=== PATIENT | female | born 1955 | race Caucasian/White ===

== ENCOUNTER 2016-09-18 19:02 | Emergency (ER) | payer BC, OTHER ==
[2016-09-18 19:25] VITALS: BP 169/83
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
== END 2016-09-18 20:40 | disposition home or self-care (01) ==
LOC: ED 19:02
DX: Z02.83 Encounter for blood-alcohol and blood-drug test (principal); V89.2XXA Person injured in unspecified motor-vehicle accident, traffic, initial encounter; Y93.9 Activity, unspecified; Y92.9 Unspecified place or not applicable; J45.909 Unspecified asthma, uncomplicated; G43.909 Migraine, unspecified, not intractable, without status migrainosus; G89.29 Other chronic pain; Z88.7 Allergy status to serum and vaccine; Z88.3 Allergy status to other anti-infective agents; Z91.030 Bee allergy status; Z91.040 Latex allergy status; Z88.2 Allergy status to sulfonamides; Z88.8 Allergy status to other drugs, medicaments and biological substances; Z91.048 Other nonmedicinal substance allergy status; Z85.3 Personal history of malignant neoplasm of breast
CPT/HCPCS: 99281

== ENCOUNTER 2018-03-05 13:59 | Emergency (ER) | payer BC, OTHER ==
[2018-03-05 14:14] VITALS: BP 177/90
--- NOTE | 2018-03-05 14:56 | UC ---
Respiratory Complaint HPI - HPI Summary HPI Summary: Pt c/o sudden onset of nasal congestion, PND, cough, chest congestion X 1 day. Pt states that she "always gets this and she will get pneumonia in 24 hours" - History of Current Complaint Chief Complaint: UCRespiratory Stated Complaint: SINUS COMPLAINT Time Seen by Provider: 03/05/18 14:29 Hx Obtained From: Patient Hx Last Menstrual Period: Hysterectomy ?: No Onset/Duration: Sudden Onset, Lasting Days, Still Present Timing: Constant Severity Initially: Moderate Severity Currently: Moderate Pain Intensity: 7 Character: Cough: Nonproductive Aggravating Factors: Exertion, Deep Breaths, Recumbent Position Alleviating Factors: Nothing Associated Signs And Symptoms: Positive: Chills, Wheezing, URI, Nasal Congestion Related History: Seasonal Allergies - Risk Factors Pulmonary Embolism Risk Factors: Negative Cardiac Risk Factors: Negative Pseudomonas Risk Factors: Negative Tuberculosis Risk Factors: Negative - Allergies/Home Medications Allergies/Adverse Reactions: Allergies Allergy/AdvReac Type Severity Reaction Status Date / Time Adhesive Tape [Paper Tape] Allergy Unknown Unknown Verified 03/05/18 14:19 Reaction Details adhesive tape Allergy Unknown Verified 03/05/18 14:19 Reaction Details bee venom protein (honey bee) Allergy Unknown Verified 03/05/18 14:19 Reaction Details buprenorphine Allergy Rash Verified 03/05/18 14:19 cefaclor [From Ceclor] Allergy GI Upset Verified 03/05/18 14:19 cephalexin [From Keflex] Allergy GI Upset Verified 03/05/18 14:19 ciprofloxacin [From Cipro] Allergy GI Upset Verified 03/05/18 14:19 Egg Derived Allergy Rash Verified 03/05/18 14:19 latex Allergy Blisters Verified 03/05/18 14:19 nalbuphine [From Nubain] Allergy Unknown Verified 03/05/18 14:19 Reaction Details nitrofurantoin Allergy GI Upset Verified 03/05/18 14:19 [From Macrobid] ondansetron Allergy Nausea And Verified 03/05/18 14:19 Vomiting Sulfa (Sulfonamide Allergy Unknown Verified 03/05/18 14:19 Antibiotics) Reaction Details Tetanus Vaccines and Toxoid Allergy GI Upset Verified 03/05/18 14:19 Tetracyclines Allergy Unknown Verified 03/05/18 14:19 Reaction Details BANDAIDS Allergy Unknown Unknown Uncoded 03/05/18 14:19 Reaction Details BEE STINGS Allergy Unknown Unknown Uncoded 03/05/18 14:19 Reaction Details GANDOCIN Allergy Unknown Unknown Uncoded 03/05/18 14:19 Reaction Details ADHESIVES Allergy Unknown Uncoded 03/05/18 14:19 Reaction Details Home Medications: Home Medications Ibuprofen TAB* [Motrin TAB* 800 MG] 800 mg PO Q6H 03/05/18 [History Confirmed ] PMH/Surg Hx/FS Hx/Imm Hx Previously Healthy: Yes Other History Of: Negative For: HIV, Hepatitis B, Hepatitis C, Anticoagulant Therapy - Surgical History Surgical History: Yes Surgery Procedure, Year, and Place: APPENDECTOMY-EXPLORATORY; OVARY-CYST - ; 2004 BREAST-LUMPECTOMY Rt; STAPH INFECTION W/ BREAST;TONSILECTOMY ( CHILD) , PARTIAL hysterectomy - Family History Known Family History: Positive: Cardiac Disease, Hypertension Family History: NON CONTRIBUTORY - Social History Occupation: Retired Lives: With Family Alcohol Use: None Substance Use Type: None Smoking Status (MU): Never Smoked Tobacco Have You Smoked in the Last Year: No - Immunization History Most Recent Influenza Vaccination: allergy Review of Systems All Other Systems Reviewed And Are Negative: Yes Constitutional: Positive: Fatigue Skin: Positive: Negative Eyes: Positive: Negative ENT: Positive: Sore Throat, Sinus Congestion Respiratory: Positive: Shortness Of Breath, Cough, Other - wheezing Cardiovascular: Positive: Negative Gastrointestinal: Positive: Negative Genitourinary: Positive: Negative Motor: Positive: Negative Neurovascular: Positive: Negative Musculoskeletal: Positive: Negative Neurological: Positive: Negative Psychological: Positive: Negative Is Patient Immunocompromised?: No Physical Exam Triage Information Reviewed: Yes Appearance: Ill-Appearing Vital Signs: Initial Vital Signs Temp 98.8 F 03/05/18 14:09 Pulse 74 03/05/18 14:09 Resp 18 03/05/18 14:09 BP 177/90 03/05/18 14:09 Pulse Ox 98 03/05/18 14:09 Vital Signs Reviewed: Yes Eye Exam: Normal ENT: Positive: Nasal congestion Dental Exam: Normal Neck exam: Normal Respiratory: Positive: Wheezing Cardiovascular Exam: Normal Musculoskeletal Exam: Normal Neurological Exam: Normal Psychological Exam: Normal Skin Exam: Normal UC Diagnostic Evaluation - Laboratory O2 Sat by Pulse Oximetry: 98 Respiratory Course/Dx - Differential Dx/Diagnosis Differential Diagnosis/HQI/PQRI: Bronchitis, Other - uri Provider Diagnosis: Bronchitis Discharge - Sign-Out/Discharge Documenting (check all that apply): Patient Departure All imaging exams completed and their final reports reviewed: No Studies - Discharge Plan Condition: Stable Disposition: HOME Prescriptions: Albuterol HFA INHALER* [Ventolin HFA Inhaler*] 1 - 2 puff INH Q4H PRN #1 mdi PRN Reason: Sob/Wheezing Azithromycin TAB* [Zithromax TAB (Z-LASHAUN) 250 mg #6 tabs] 2 tab PO .TODAY, THEN 1 DAILY #1 lashaun Benzonatate CAP* [Tessalon 100 MG CAP*] 100 mg PO Q8H PRN #30 cap PRN Reason: Cough predniSONE [Prednisone 20 MG TAB] 20 mg PO DAILY #4 tablet Patient Education Materials: Acute Bronchitis (ED), Bronchospasm (ED) Referrals: Ermias Desai MD [Primary Care Provider] - 2 Days - Billing Disposition and Condition Condition: STABLE Disposition: Home
== END 2018-03-05 15:13 | disposition home or self-care (01) ==
LOC: UCEAST 13:59
DX: J40 Bronchitis, not specified as acute or chronic (principal); Z88.8 Allergy status to other drugs, medicaments and biological substances; Z88.1 Allergy status to other antibiotic agents
CPT/HCPCS: 99212; G0463

== ENCOUNTER 2018-04-24 18:19 | Emergency (ER) | payer BC, OTHER ==
--- NOTE | 2018-04-24 18:35 | UC ---
Complaint Female HPI - HPI Summary HPI Summary: 62 y/o female presents to the urgent care c/o burning and frequency on urination since this afternoon. About 1 hrs ago she started to feel some chills w/ Rt lower back pain and mild pelvic pain. Pt states Hx of chronic back pain. She stated to drink water recently. Pain is 7/10. Pt states Hx of Multiple antibiotic allergies. Pt has been very stresses out lately since her had a stroke yesterday. Pt denies fever, flank pain, abdominal pain, vaginal discharge, SOB, chest pain, NICK, dizziness, visual changes. - History Of Current Complaint Stated Complaint: UTI Time Seen by Provider: 04/24/18 18:33 Hx Obtained From: Patient Hx Last Menstrual Period: Hysterectomy Onset/Duration: Gradual Onset, Lasting Hours - 6hrs, Still Present Timing: Lasting Seconds Severity Initially: Mild Severity Currently: Moderate Pain Intensity: 7 Pain Scale Used: 0-10 Numeric Character: Burning Aggravating Factor(s): Urination Associated Signs And Symptoms: Positive: Back Pain - lower back pain. But has Hx of chronic back pain. Negative: Fever, Vaginal Discharge, Nausea, Vomiting( # Of Episodes =), Genital Swelling, Genital Blisters - Risk Factors Ectopic Risk Factor: Negative Ovarian Torsion Risk Factor: Negative - Allergies/Home Medications Allergies/Adverse Reactions: Allergies Allergy/AdvReac Type Severity Reaction Status Date / Time Adhesive Tape [Paper Tape] Allergy Unknown Unknown Verified 04/24/18 18:48 Reaction Details adhesive tape Allergy Unknown Verified 04/24/18 18:48 Reaction Details bee venom protein (honey bee) Allergy Unknown Verified 04/24/18 18:48 Reaction Details buprenorphine Allergy Rash Verified 04/24/18 18:48 cefaclor [From Ceclor] Allergy GI Upset Verified 04/24/18 18:48 cephalexin [From Keflex] Allergy GI Upset Verified 04/24/18 18:48 ciprofloxacin [From Cipro] Allergy GI Upset Verified 04/24/18 18:48 Egg Derived Allergy Rash Verified 04/24/18 18:48 latex Allergy Blisters Verified 04/24/18 18:48 [email or web address] [From Nubain] Allergy Unknown Verified 04/24/18 18:48 Reaction Details nitrofurantoin Allergy GI Upset Verified 04/24/18 18:48 [From Macrobid] ondansetron Allergy Nausea And Verified 04/24/18 18:48 Vomiting Sulfa (Sulfonamide Allergy Unknown Verified 04/24/18 18:48 Antibiotics) Reaction Details Tetanus Vaccines and Toxoid Allergy GI Upset Verified 04/24/18 18:48 Tetracyclines Allergy Unknown Verified 04/24/18 18:48 Reaction Details BANDAIDS Allergy Unknown Unknown Uncoded 04/24/18 18:48 Reaction Details BEE STINGS Allergy Unknown Unknown Uncoded 04/24/18 18:48 Reaction Details GANDOCIN Allergy Unknown Unknown Uncoded 04/24/18 18:48 Reaction Details ADHESIVES Allergy Unknown Uncoded 04/24/18 18:48 Reaction Details Home Medications: Home Medications Cholecalciferol (Vitamin D3) [Vitamin D3] 1 tab PO DAILY 04/24/18 [History Confirmed 04/24/18] PMH/Surg Hx/FS Hx/Imm Hx Previously Healthy: Yes Respiratory History: Asthma Other Neurological History: Chronic back pain Psychological History: Anxiety, Depression Other History Of: Negative For: HIV, Hepatitis B, Hepatitis C, Anticoagulant Therapy - Surgical History Surgical History: Yes Surgery Procedure, Year, and Place: APPENDECTOMY-EXPLORATORY; OVARY-CYST - ; 2004 BREAST-LUMPECTOMY Rt; STAPH INFECTION W/ BREAST;TONSILECTOMY ( CHILD) , PARTIAL hysterectomy - Family History Known Family History: Positive: Cardiac Disease, Hypertension Family History: NON CONTRIBUTORY - Social History Occupation: Employed Full-time Lives: With Family Alcohol Use: None Substance Use Type: None Smoking Status (MU): Never Smoked Tobacco Have You Smoked in the Last Year: No - Immunization History Most Recent Influenza Vaccination: allergy Review of Systems All Other Systems Reviewed And Are Negative: Yes Constitutional: Positive: Chills Skin: Positive: Negative Eyes: Positive: Negative ENT: Positive: Negative Respiratory: Positive: Negative Cardiovascular: Positive: Negative Gastrointestinal: Positive: Negative Genitourinary: Positive: Dysuria, Frequency, Urgency Motor: Positive: Negative Neurovascular: Positive: Negative Musculoskeletal: Positive: Negative Neurological: Positive: Negative Psychological: Positive: Negative Is Patient Immunocompromised?: No Physical Exam - Summary Physical Exam Summary: VITAL SIGNS: Reviewed. GENERAL: Patient is a well developed and nourished female who is sitting comfortable in the examining table. Patient is not in any acute respiratory distress. HEAD AND FACE: No signs of trauma. No ecchymosis, hematomas or skull depressions. No sinus tenderness. EYES: PERRLA, EOMI x 2, No injected conjunctiva, clear watery eyes, no nystagmus. No photophobia. EARS: Hearing grossly intact. Ear canals and tympanic membranes are within normal limits. MOUTH: pharynx with no erythema, no exudates,no palatal petechiae. no B/L tonsillar enlargement Uvula in midline. NECK: Supple, trachea is midline, no lymphadenopathy, no JVD, no carotid bruit, no c-spine tenderness, neck with full ROM. CHEST: Symmetric, no tenderness at palpation LUNGS: Clear to auscultation bilaterally. No wheezing or crackles. CVS: Regular rate and rhythm, S1 and S2 present, no murmurs or gallops appreciated. ABDOMEN: Soft, non-tender. No signs of distention. No rebound no guarding, and no masses palpated. Bowel sounds are normal. BACK:no scoliosis or lesions, non tender to palpation, No B/L CVA tenderness EXTREMITIES: FROM in all major joints, no edema, no cyanosis or clubbing. NEURO: Alert and oriented x 3. No acute neurological deficits. Speech is normal and follows commands. SKIN: Dry and warm Triage Information Reviewed: Yes Complaint Female Dx - Course Course Of Treatment: 62 y/o female presents to the urgent care c/o burning and frequency on urination since this afternoon. About 1 hrs ago she started to feel some chills w/ Rt lower back pain and mild pelvic pain. Pt states Hx of chronic back pain. She stated to drink water recently. Pain is 7/10. Pt states Hx of Multiple antibiotic allergies. Pt has been very stresses out lately since her had a stroke yesterday. Pt denies fever, flank pain, abdominal pain , vaginal discharge, SOB, chest pain, NICK, dizziness, visual changes. Hx obtained. PE:WNL, No B/L CVA tenderness. UA results: Blood trace, Leukoesterase 1+. Pt w/ multiple antibiotic reactions. Pt will be Rx Augmentin PO which she states she has taken in the past w/o any problems. Also Rx. Pyridium 100mg PO TID x 2 days. Advised to increase fluid intake. Urine sent for culture if any abnormality Pt will be notified for further treatment. Pt advised If symptoms do not improve to return to the urgent care or f/u with PCP. Pt's BP is elevated today 188/106. Pt is asymptomatic. Manually taken 30 min later 162/75. Pt advised to decrease salt in diet, monitor BP and f/u with PCP for further management. Pt understood and agreed. Left the clinic ambulating. - Differential Dx/Diagnosis Differential Diagnosis/HQI/PQRI: Cervicitis, Renal Colic, Ureteral Stone, Urinary Tract Infection, Other - pyelonephritis Provider Diagnosis: UTI (urinary tract infection), Dysuria, Elevated BP without diagnosis of hypertension Discharge - Sign-Out/Discharge Documenting (check all that apply): Patient Departure - D/C home All imaging exams completed and their final reports reviewed: No Studies - Discharge Plan Condition: Stable Disposition: HOME Prescriptions: Amoxicillin/Clavulanate TAB* [Augmentin TAB 875*] 875 mg PO BID #14 tab Phenazopyridine TAB* [Pyridium 100 mg TAB*] 100 mg PO TID #6 tab Patient Education Materials: Urinary Tract Infection in Women (ED), Low-Sodium Diet (ED) Referrals: Ermias Desai MD [Primary Care Provider] - 2 Days Additional Instructions: 1- Please take Augmentin PO x 7 days. Pyridium 100 mg PO TID x 2 days to alleviate urinary symptoms. Increase increase fluid intake. drink cranberry juice. 2-Urine sent for culture if any abnormality, you will be notified for further treatment. 3-If symptoms do not improve please return to the urgent care or f/u with PCP in 2 days for further management and treatment . 4-Your BP is elevated today. please decrease salt in your diet, monitor BP and if it continues to be elevated please f/u with your PCP for further management. If you develop NICK, dizziness, Chest pain, SOB please go immediately to the ER for further management - Billing Disposition and Condition Condition: STABLE Disposition: Home
[2018-04-24 19:24] VITALS: BP 162/75
== END 2018-04-24 19:38 | disposition home or self-care (01) ==
LOC: UCEAST 18:19
DX: N39.0 Urinary tract infection, site not specified (principal); R03.0 Elevated blood-pressure reading, without diagnosis of hypertension; Z88.1 Allergy status to other antibiotic agents; Z91.030 Bee allergy status; Z91.012 Allergy to eggs; Z91.040 Latex allergy status; Z88.2 Allergy status to sulfonamides; Z88.7 Allergy status to serum and vaccine; Z91.048 Other nonmedicinal substance allergy status
CPT/HCPCS: 81003; 87077; 87086; 87186; 99212; G0463

== ENCOUNTER 2018-05-17 17:53 | Emergency (ER) | payer BC, OTHER ==
[2018-05-17 18:00] VITALS: BP 153/80
[2018-05-17] MEDS ORDERED: Ketorolac INJ* 60 MG/2 ML VIAL IM ONE (18:20)
--- NOTE | 2018-05-17 18:20 | UC ---
Headache HPI - HPI Summary HPI Summary: 62-year-old woman comes in with chief complaint of generalized headache. It started earlier today. Patient has a long history of headaches and patient reports this is her typical headache. She is slightly nauseous with it to. No fevers no stiff neck. No weakness or numbness. She does have mild photophobia no focal neurologic deficit. - History Of Current Complaint Chief Complaint: UCHeadache Stated Complaint: HEADACHE Time Seen by Provider: 05/17/18 18:05 Hx Last Menstrual Period: Hysterectomy Pain Intensity: 10 - Allergies/Home Medications Allergies/Adverse Reactions: Allergies Allergy/AdvReac Type Severity Reaction Status Date / Time Adhesive Tape [Paper Tape] Allergy Unknown Unknown Verified 05/17/18 17:58 Reaction Details adhesive tape Allergy Unknown Verified 05/17/18 17:58 Reaction Details bee venom protein (honey bee) Allergy Unknown Verified 05/17/18 17:58 Reaction Details buprenorphine Allergy Rash Verified 05/17/18 17:58 cefaclor [From Ceclor] Allergy GI Upset Verified 05/17/18 17:58 cephalexin [From Keflex] Allergy GI Upset Verified 05/17/18 17:58 ciprofloxacin [From Cipro] Allergy GI Upset Verified 05/17/18 17:58 Egg Derived Allergy Rash Verified 05/17/18 17:58 latex Allergy Blisters Verified 05/17/18 17:58 nalbuphine [From Nubain] Allergy Unknown Verified 05/17/18 17:58 Reaction Details nitrofurantoin Allergy GI Upset Verified 05/17/18 17:58 [From Macrobid] ondansetron Allergy Nausea And Verified 05/17/18 17:58 Vomiting Sulfa (Sulfonamide Allergy Unknown Verified 05/17/18 17:58 Antibiotics) Reaction Details Tetanus Vaccines and Toxoid Allergy GI Upset Verified 05/17/18 17:58 Tetracyclines Allergy Unknown Verified 05/17/18 17:58 Reaction Details BANDAIDS Allergy Unknown Unknown Uncoded 05/17/18 17:58 Reaction Details BEE STINGS Allergy Unknown Unknown Uncoded 05/17/18 17:58 Reaction Details GANDOCIN Allergy Unknown Unknown Uncoded 05/17/18 17:58 Reaction Details ADHESIVES Allergy Unknown Uncoded 05/17/18 17:58 Reaction Details Home Medications: Home Medications Aspirin/Acetaminophen/Caffeine [Excedrin Migraine Caplet] 2 each PO PRN [History] Ketorolac INJ* [Toradol INJ*] 60 mg IM PRN 05/17/18 [History] PMH/Surg Hx/FS Hx/Imm Hx Previously Healthy: Yes Respiratory History: Asthma Neurological History: Migraine Other History Of: Negative For: HIV, Hepatitis B, Hepatitis C, Anticoagulant Therapy - Surgical History Surgical History: Yes Surgery Procedure, Year, and Place: APPENDECTOMY-EXPLORATORY; [facility] - ; 2004 BREAST-LUMPECTOMY Rt; STAPH INFECTION W/ BREAST;TONSILECTOMY ( CHILD) , PARTIAL hysterectomy - Family History Known Family History: Positive: Cardiac Disease, Hypertension Family History: NON CONTRIBUTORY - Social History Alcohol Use: None Substance Use Type: None Smoking Status (MU): Never Smoked Tobacco Have You Smoked in the Last Year: No - Immunization History Most Recent Influenza Vaccination: allergy Review of Systems All Other Systems Reviewed And Are Negative: Yes Constitutional: Positive: Negative Skin: Positive: Negative Eyes: Positive: Negative ENT: Positive: Negative Respiratory: Positive: Negative Cardiovascular: Positive: Negative Gastrointestinal: Positive: Nausea Motor: Positive: Negative Neurovascular: Positive: Negative Musculoskeletal: Positive: Negative Neurological: Positive: Headache Psychological: Positive: Negative Is Patient Immunocompromised?: No Physical Exam Triage Information Reviewed: Yes Appearance: Well-Appearing, Well-Nourished, Pain Distress - MILD Vital Signs: Initial Vital Signs Temp 97.2 F 05/17/18 17:55 Pulse 72 05/17/18 17:55 Resp 16 05/17/18 17:55 BP 153/80 05/17/18 17:55 Pulse Ox 100 05/17/18 17:55 Vital Signs Reviewed: Yes Eye Exam: Normal Eyes: Positive: Conjunctiva Clear, Other: - POSITIVE PHOTOPHOBIA Neck exam: Normal Neck: Positive: Supple Respiratory: Positive: Lungs clear, Normal breath sounds, No respiratory distress Cardiovascular: Positive: RRR Musculoskeletal Exam: Normal Musculoskeletal: Positive: Strength Intact, ROM Intact Neurological Exam: Normal Neurological: Positive: Alert, Muscle Tone Normal, Other: - NO FOCAL NEUROLOGIC DEFICIT Psychological Exam: Normal Psychological: Positive: Age Appropriate Behavior Skin Exam: Normal Headache Course/Dx - Course Course Of Treatment: Patient reports this is her typical headache. Recently she 's been prescribed ketorolac 60 mg IM as needed for her headaches. We gave her that in clinic. She'll follow-up with her primary care doctor reevaluate sooner if worse or any questions or concerns. - Differential Dx/Diagnosis Provider Diagnosis: Headache Discharge - Sign-Out/Discharge Documenting (check all that apply): Patient Departure All imaging exams completed and their final reports reviewed: No Studies - Discharge Plan Condition: Stable Disposition: HOME Patient Education Materials: General Headache (ED) Referrals: Ermias Desai MD [Primary Care Provider] - Additional Instructions: FOLLOW UP WITH YOUR DOCTOR. GET RECHECKED FOR ANY WORSENING OF YOUR CONDITION; PAIN, WEAKNESS, NUMBNESS, YOU FEEL ILL, FEVER OR QUESTIONS OR CONCERNS. - Billing Disposition and Condition Condition: STABLE Disposition: Home
== END 2018-05-17 18:39 | disposition home or self-care (01) ==
LOC: UCEAST 17:53
DX: R51 Headache (principal); J45.909 Unspecified asthma, uncomplicated; H53.149 Visual discomfort, unspecified; R11.0 Nausea; Z88.1 Allergy status to other antibiotic agents; Z91.030 Bee allergy status; Z91.012 Allergy to eggs; Z91.040 Latex allergy status; Z88.5 Allergy status to narcotic agent; Z88.2 Allergy status to sulfonamides; Z88.7 Allergy status to serum and vaccine; Z88.8 Allergy status to other drugs, medicaments and biological substances; Z91.09 Other allergy status, other than to drugs and biological substances
CPT/HCPCS: 96372; 99211; G0463; J1885

== ENCOUNTER 2018-07-01 10:09 | Emergency (ER) | payer BC, OTHER ==
--- OUTSIDE RECORDS SUMMARY | 2018-07-01 10:16 | XMS REPORT | Continuity of Care Document ---
:1955 External Reference #:[id number] Author Name Desiree Bowden Care Team Providers Name Role Phone Korina Meadows M.D. Primary Care Physician Unavailable Payers Date Identification Numbers Payment Provider Subscriber Effective: 2016 Policy Number: [id number] [employer] Dutch Linton PayID: [id number] [address] [address] CRISTINA Santiago [address] Policy Number: [id number] [facility] Dutch Linton PayID: [id number] [address] [place] [address] Effective: 2012 Policy Number: [id number] [employer] Dutch Linton Expires: 2016 PayID: [id number] [address] [address] CRISTINA Santiago [address] Onset: 1997 Policy Number: [id number] [employer]ST[employer] Dutch Linton PayID: [id number] [address] [place] [address] Effective: 2011 Policy Number: [id number] BS Of BRODIE Linton Expires: 2011 PayID: [id number] [address] [address] CRISTINA Santiago [address] Expires: 2009 Policy Number: [id number] BS Of BRODIE Linton PayID: [id number] [address] [address] CRISTINA Santiago [address] Controverted Dutch Linton Onset: 1997 Group Name: [employer] Dutch Linton [address] [place] [address] Advance Directives Type Date Description Status Comment Other Directive 01/09/2018 Health Care Proxy Current and Verified Problems Date Description Provider Status Onset: 09/28/2009 Thoracic back sprain Ermias Desai M.D.,FACP Active Onset: 09/28/2009 Spasm Ermias Desai M.D.,FACP Active Onset: 01/26/2011 Migraine without aura, not Ermias Desai M.D.,FACP Active refractory Onset: 10/04/2011 Personal history of primary Ermias Desai M.D.,MARK Active malignant neoplasm of breast Onset: 07/03/2012 Osteoporosis Ermias Desai M.D.,FACP Active Onset: 07/29/2015 Vitamin D deficiency Ermias Desai M.D.,FACP Active Family History Date Family Member(s) Observation Comments Father due to Hypertension () Mother Cancer, Breast Mother Osteoporosis Mother Arthritis, Osteo Mother osteopetrosis? First Sister Lupus Second Sister Lupus Social History Type Date Description Comments Sex Unknown Marital Status Lives With Spouse Occupation Medically Retired Tobacco Use Start: Unknown Never Smoked Cigarettes ETOH Use 07/03/2012 Denies alcohol use ETOH Use 08/26/2014 Denies alcohol use Recreational Drug Use Denies Drug Use Tobacco Use Start: Unknown Patient has never smoked Smoking Status Reviewed: 05/28/18 Patient has never smoked Exercise Type/Frequency Exercises rarely Currently Active Patient is currently not sexually active Allergies, Adverse Reactions, Alerts Date Description Reaction Status Severity Comments 07/15/2009 Ondansetron nausea/vomiting Active 07/15/2009 Tetanus Toxoids Active 07/15/2009 Keflex Active 07/15/2009 Cipro Active 07/15/2009 Ceclor Active 09/28/2009 Nitrofurantoin Active diarrhea/vomitin g 04/06/2010 Eggs or Egg-derived Active rash Products 10/04/2011 Latex blisters Active 12/02/2012 Sulfa Antibiotics Active 12/06/2012 Tussionex Pennkinetic Active Extended Release 12/06/2012 Tetracycline Active 12/06/2012 Gandocin Active 12/06/2012 Bee Sting Active 12/06/2012 Bandaids And Paper Tape Active 12/13/2012 Nubain unsure but Active remembers from past 12/13/2012 Buprenorphine Active rash from Butrans Patch 07/15/2009 Prednisone nausea Inactive Medications Medication Date Status Form Strength Qnty SIG Indications Ordering Provider Butalbital/Aspi 05/29 Active Capsules 50-325-40 75cap 1-2 every 8 G43.009 Korina rin/Caffeine/Co /2019 -30mg s hours as Meadows, deine needed for severe migraine. must last 28 days Propranolol HCL 05/28 Active Tablets 20mg 60tab 1 by mouth I10 s twice a day MD Abdiel Nitrofurantoin 05/01 Active Capsules 100mg 14cap 1 by mouth Ladi Macrocrystal s twice a day Rick Rodriguez Calcium 500 + 04/26 Active Tablets 500-600mg 90tab 2 tabs by Ermias D3 /2018 -Unit s mouth every Liset Desai, day M.D.,FACAziza Fish Oil 04/26 Active Capsules 1000mg 100ca 1 tab by mouth Ermias ps every day Liset Desai M.D.,MARK Ketorolac 04/23 Active Solution 60mg/2ML 4ml 2ml G43.009 Trometh intramuscular Meadows, x 1, as needed migraine Cetirizine HCL 03/26 Active Tablets 10mg 30tab 1 by mouth J30.9 s every day MD Abdiel Azelastine HCL 03/26 Active Solution 137mcg/Sp 30ml 2 sprays in J30.9 Korina (Nasal) ray each nostril Abdiel, 2x/day Vitamin D 01/09 Active Tablets 1000Unit 90tab by mouth E55.9 Zsofia s everyday JONES [place] Vitamin D3 08/13 Active Capsules 5000Unit 90cap 1 by mouth Zsofia Ultra Strength s every day JONES [place] Ambien 05/04 Active Tablets 10mg 30tab 1 tab by mouth G47.00 s at bedtime as Abdiel, needed Baclofen 12/08 Active Tablets 10mg 45tab take 1/2 tab Ermias s by mouth three Liset Desai, times daily M.D.,MARK Lidoderm 09/18 Active Patches 5% 30uni apply Ermias ts topically Liset Desai, every day for M.DMj,MARK 12 hours to RT shoulder, work-related injury Latanoprost 07/13 Active Solution 0.005% 1 drop in each Other /2015 eye at bedtime Ordering Provider Tandem Lite 04/21 Active Device 1unit check Ermias Blood Glucose /2013 s fingerstick Liset Desai, Monitoring daily M.D.,FACP System hypoglycemic Proair HFA 09/10 Active Aerosol 108(90Bas 8.5un 2 puffs by J45.909 ofia /2012 e) its mouth four Cliff, mcg/Act times a day as ASSURANCE ANALYST needed Freestyle Lite 11/23 Active Strips 100un test BS up to Ermias Test Strips its three times Liset Desai, daily, last M.D.,FACP visit: 05/04/17 Freestyle 11/23 Active Misc 100un test BS up to Ermias Lancets its three times Liset Desai, daily, last M.D.,FACP visit: 05/04/17 Carisoprodol Active Tablets 350mg 120ta 1 tablets by M62.40 Zsofi bs mouth four Cliff, times a day as ASSURANCE ANALYST needed Acetaminophen-C Active Tablets 300-60mg 2 tab every 4 Unknown odeine #4 /0000 hours as needed pain (work-related) Lumigan Active Solution 0.01% one drop in Unknown /0000 left eye daily Excedrin Active Tablets 250-250-6 1 tab twice a G43.009 Unknown Migraine /0000 5mg day as needed for migraine Timolol Maleate Active Solution 0.5% instill one Unknown /0000 drop into both eyes twice daily (Timoptic) Imitrex Active Tablets 50mg 18tab every 2 hours G43.909 s as needed mdd4 karen Meadows 4 G43.009 Ventolin HFA Active Aerosol 108(90Base) 8gm 2 puffs by Korina mcg/Act mouth four Meadows, times a day MD as needed (rx'd by urgent care) Zioptan Active Solution 0.0015% one drop in Unknown each eye once daily in evening Phenazopyridine Active Tablets 100mg 30tab one po tid Korina HCL s prn dysuria MD Abdiel Prednisone 03/11/2018 - Hx Tablets 20mg 20tab 3 tabs once a J Korina 03/26/2018 s day x 3 days, 9 Meadows, 2 tabs once a 8 MD day for 3 . days, 1 tab 0 once a day 1 for three days, half tab once a day for 3 days Ibandronate 01/09/2018 - Hx Tablets 150mg 3tabs take 1 tablet M Zsofia Sodium 01/14/2018 by mouth once 8 Cliff, a month 1 ASSURANCE ANALYST . 0 Vitamin D 05/04/2017 - Hx Tablets 1000Unit 90tab by mouth E Zsofia 08/13/2017 s everyday 5 Cliff, 5 ASSURANCE ANALYST . 9 Vitamin D 02/23/2017 - Hx Tablets 1000Unit 30tab by mouth Zsofia 08/13/2017 s everyday Cliff, ASSURANCE ANALYST Ibuprofen 10/25/2016 - Hx Tablets 800mg 60tab 1 tab by M Zsofia 12/08/2016 s mouth three 5 Cliff, times a day 4 ASSURANCE ANALYST with food as . needed 5 Meloxicam 10/05/2016 - Hx Tablets 7.5mg 60tab 1 by mouth M Zsofia 04/23/2018 s twice a day 2 Cliff, as needed 5 ASSURANCE ANALYST . 5 1 1 Vitamin D3 09/11/2016 - Hx Capsules 5000Unit 90cap 1 by mouth Zsofia Maximum Strength 04/23/2018 s every day for Cliff, 3 month, ASSURANCE ANALYST repeat labs when completed Calcium 1000 + D 09/06/2016 - Hx Tablets 4107-699jf-Yo 90tab take 1 tab po M Zsofia 04/23/2018 it s daily 8 Cliff, 1 ASSURANCE ANALYST . 0 Ra Fish Oil 09/06/2016 - Hx Capsules 1000mg 90cap take 1 Zsofia 04/23/2018 s capsule by Cliff, mouth once ASSURANCE ANALYST daily Amoxicillin 01/05/2016 - Hx Tablets 875mg 20tab take one Yusuf Dada 01/15/2016 s tablet by 4 Chinese, mouth twice a 5 ICU STAFF NURSE day x's 10 . days States 9 she has taken 0 amoxicillin 9 without difficulty Keflex not a true aller Tessalon Katie 01/05/2016 - Hx Capsules 100mg 30cap 1-2 capsule Yusuf Chet -Bri 01/15/2016 s by mouth 4 l D. three times a 5 Nenzel, day as needed . M.D.,FAC 9 P 0 9 Atrovent HFA 01/05/2016 - Hx Aerosol 17mcg/Act 12.90 1-2 J Cherelle 01/15/2016 0gm inhalation q6 4 l D. hours as 5 Nenzel, needed . M.D.,FAC 9 P 0 9 Prednisone 01/05/2016 - Hx Tablets 20mg 10tab 2 tablets by Yusuf Garland 01/10/2016 s mouth daily 4 Chinese, x's 5 days in 5 ICU STAFF NURSE the morning . 9 0 9 Ergocalciferol 07/29/2015 - Hx Capsules 39082Foeb 12cap by mouth q1wk E Chet-Bri 09/11/2016 s 5 l D. 5 Nenzel, . M.D.,FAC 9 P M81.0 Ibandronate 07/23/2015 - Hx Tablets 150mg 3tabs take 1 M81.0 Ermias Sodium 09/06/2016 tablet by Liset Desai, mouth once a M.D.,FACP month Medrol (Robbie) 03/11/2015 - Hx Tablets 4mg 1tabs take as R05 Dada 03/16/2015 prescribed Chinese, ICU STAFF NURSE Benzonatate 03/02/2015 - Hx Capsules 100mg 15caps 1-2 capsule R05 Dada 01/05/2016 three times Chinese, ICU STAFF NURSE a day take as needed. Azithromycin 11/17/2014 - Hx Tablets 250mg 6tabs 2 tabs by 461.1 Dada 11/22/2014 mouth on day Chinese, ICU STAFF NURSE 1; 1 tab by mouth every day on days 2-5 Amoxicillin 08/06/2013 - Hx Tablets 500mg 40tabs 2 tabs by 462 Roshan Viramontes 07/16/2014 mouth twice Liset Desai, a day for 10 M.D.,FACP days Prednisone 04/11/2013 - Hx Tablets 10mg 30tabs 5 tabs qd Ermias 08/06/2013 for 2 days, Liset Desai, then reduce M.D.,FACP by 1 tab every 2 days until finished Sulfamethoxazo 12/02/2012 - Hx Tablets 800-160 10tabs po bid Ermias le/Trimethopri 12/02/2012 mg Liset Desai, m DS M.D.,FACP Azithromycin 09/12/2012 - Hx Tablets 250mg 6tabs 2 qd for 1 726.19 Chet Talley 09/17/2012 day, then 1 D. Giselle, qd M.D.,FACP Tessalon 03/14/2012 - Hx Capsules 200mg 30caps tid prn po Ermias 06/04/2012 Liset Desai M.D.,[facility] Percocet 02/19/2012 - Hx Tablets 5-325mg 40tabs 1/2 to 1 po Dirk Tisha, 03/27/2012 q8h prn pain M.D. knee Mcroberts 01/10/2012 - Hx Tablets 5-325mg 15tabs take 1 tab Dirk Tisha, 03/14/2012 po tid prn M.D. pain Calcium 500+D 12/08/2011 - Hx Tablets 500-400 by mouth 733.02 Chet Wander High Potency 04/11/2013 mg-Unit twice a day Liset Desai M.D.,[facility] Evista 12/08/2011 - Hx Tablets 60mg 30tabs 1 po qd 733.02 Ermias 04/11/2013 Liset Desai M.D.,[facility] Zostavax 09/13/2011 - Hx Solution Rec [id number] 1units 1 dose s/c Roshan Viramontes 10/11/2011 t/0.65M Liset Desai L Izabel.Liset,FACP Fluticasone 07/20/2011 - Hx Suspension 50mcg/A 1bottle [address] [place] [address] Propionate 10/04/2011 ct each nostril D. Nenzel, in am M.D.,FACP Nasal Saline 07/20/2011 - Hx Solution 0.65% 1ml 2 sprays in 461.9 [facility] 07/16/2014 each nostril D. Nenzel, 5 times a M.D.,FACP day Nasonex 07/20/2011 - Hx Suspension 50mcg/A 17g 2 sprays in 461.9 [facility] 07/20/2011 ct each nostril D. Nenzel, once daily M.D.,FACP Azithromycin 07/20/2011 - Hx Tablets 250mg 6tabs 2 tabs po qd 461.9 Ermias 10/04/2011 x1 day, 1 D. Nenzel, tab po qd x M.D.,FACP 4 days Butrans 07/18/2011 - Hx Patches 5mcg/HR 4units topical q 726.19 Chet- Wander 10/04/2011 Weekly week Liset Desai M.D.,FACP Ventolin HFA 03/15/2011 - Hx Aerosol 108(90B 1units 2 puffs po Chet- Wander 09/10/2012 ase) qid prn Liset Desai, mcg/ac Rick,FACP Verapamil HCL 07/26/2010 - Hx Caps ER 24HR 120mg 30caps 1 po qd 346.90 Ermias ER 12/13/2012 Liset Desai M.D.,FACP Tylenol/Codein 06/14/2010 - Hx Tablets 300-60m 240tabs 2 tablets by nuzhat Griffin #4 06/19/2014 g mouth every ICU STAFF NURSE four hours as needed per pt. request to send early to be filled but hold until due date Fluticasone 02/15/2010 - Hx Suspension 50mcg/A 1bottle 1 spray each Ermias Propionate 07/18/2011 ct nostril in Liset Desai am pravinash Cabrera,FACP Verapamil HCL 01/14/2010 - Hx Caps ER 24HR 100mg 30caps 1 tab po 346.90 [facility] CR 07/26/2010 daily Rick Lopez Verapamil HCL 12/30/2009 - Hx Caps ER 24HR 180mg 30caps 1 po qd 346.90 Ermias ER 01/14/2010 Liset Desai M.D.,FACP Fiorinal/Codei 11/22/2009 - Hx Capsules 50-325- 75caps 1-2 four G43.009 Korina ne #3 05/29/2018 40-30mg times a day MD Abdiel as needed, maximum 3 days per week Simvastatin 09/28/2009 - Hx Tablets 10mg 1 tablet po 346.90 Ermias 09/28/2009 [facility] Liset Desai M.D.,FACP Fexofenadine 08/16/2009 - Hx Tablets 60mg 60tabs take one J45.909 Chet- Wander HCL 05/04/2017 tablet by Liset Desai, mouth twice M.DMj,FACP a day as needed Zocor 08/16/2009 - Hx Tablets 10mg 30tabs 1 tablet po 346.90 Elida , 09/28/2009 Rick Danielle dialy Verapamil HCL 07/15/2009 - Hx Caps ER 24HR 100mg 30caps 1 tab po 346.90 Elida, MICHELLE 12/30/2009 daily Rick Danielle Lidoderm Patch - Hx Patches 5% 1Box 1-2 patches Ermias 08/26/2014 qd Liset Desai M.D.,FACP on for 12h off for 12h prn Tylenol With - Hx Tablets 300-60m 40tabs 2 tablets po Roshan Viramontes Codeine #4 06/14/2010 g every four Liset Desai, hours as Rick,FACP needed mdd=8 August give emergency supply Butalbital-Apa - Hx Capsules 50-325- 120caps 2 tablets po Elida, p-Caffeine 08/16/2009 40mg qid prn Rick Danielle Fexofenadine - Hx Tablets 60mg 60tabs take one Unknown HCL 08/16/2009 tablet by mouth twice a day as needed Proair HFA - Hx prn only in Unknown 03/15/2011 the winter Francia-D 12 - Hx Tablets ER 60-120m 60tabs 1 po bid as J45.909 [facility] Hour 10/24/2016 12HR g needed Liset Desai M.D.,FACP Butalbital-Apa - Hx Capsules 50-325- 240caps 2 tablets po Ermias p-Caffeine 11/22/2009 40mg qid prn Liset Desai M.D.,FACP Zolpidem - Hx Tablets 10mg 30tabs 1 tab by G47.00 Zsofia Tartrate 04/23/2018 mouth every Cliff, ASSURANCE ANALYST night at bedtime as needed Proair HFA - Hx Aerosol 108(90B 1units 2 puffs po Unknown 08/26/2014 ase) q4h prn mcg/Act Doxycycline - Hx Capsules 100mg 20caps bid po Unknown Hyclate 08/06/2013 Prednisone - Hx Tablets 20mg 20tabs take 3 po Unknown 04/11/2013 qam x 4 days Benzonatate - Hx Capsules 200mg 30caps one by mouth Unknown 07/16/2014 three times daily as needed for cough Doxycycline - Hx Capsules 100mg one tablet Unknown Hyclate 03/11/2015 twice daily for 10 days. Benzonatate - Hx Capsules 100mg take one or Unknown 03/02/2015 two capsules every 8 hours as needed for cough. Prednisone - Hx Tablets 20mg one tab Unknown 03/26/2018 daily for 4 days (rx'd by urgent care) Azithromycin - Hx Tablets 250mg two tabs day Unknown 03/26/2018 one, one daily till gone (rx' by urgent care) Benzonatate - Hx Capsules 100mg take one or Unknown 04/23/2018 two capsules every 8 hours as needed for cough. (rx'd by urgent care) Amoxicillin/Cl - Hx Tablets 875-125 Unknown avulanate 05/01/2018 mg Potassium Medications Administered in Office Medication Date Status Form Strength Qnty SIG Indications Ordering Provider Shingrix Administered Injection Unknown pharmacy 019 administered Immunizations CPT Code Status Date Vaccine Lot # [id number] Given 01/14/2018 Zoster (Shingles) Vaccine (HZV), Recombinant, Subunit, Adjuvanted 61333 Given 11/02/2011 Zoster (Zostavax) 19286 Refused 01/26/2011 Flu Mist Vaccine, Live For Intranasal Use Vital Signs Date Vital Result Comment 05/28/2018 4:48pm Height 62.5 inches 5'2.50" Weight 135.38 lb Heart Rate 68 /min BP Systolic 185 mmHg BP Diastolic 100 mmHg Body Temperature 98.1 F O2 % BldC Oximetry 99 % BMI (Body Mass Index) 24.4 kg/m2 04/23/2018 3:57pm Height 62.5 inches 5'2.50" Weight 137.00 lb Heart Rate 63 /min BP Systolic 171 mmHg BP Diastolic 85 mmHg Body Temperature 99.6 F O2 % BldC Oximetry 98 % BMI (Body Mass Index) 24.7 kg/m2 03/26/2018 2:42pm Height 62.5 inches 5'2.50" Weight 145.00 lb Heart Rate 78 /min BP Systolic Sitting 140 mmHg BP Diastolic Sitting 80 mmHg Body Temperature 98.4 F O2 % BldC Oximetry 98 % BMI (Body Mass Index) 26.1 kg/m2 03/11/2018 11:15am Height 62.5 inches 5'2.50" Weight 142.00 lb Heart Rate 66 /min BP Systolic Sitting 132 mmHg BP Diastolic Sitting 90 mmHg Body Temperature 98.7 F O2 % BldC Oximetry 93 % BMI (Body Mass Index) 25.6 kg/m2 01/09/2018 2:46pm Height 62.5 inches 5'2.50" Weight 139.00 lb Heart Rate 68 /min BP Systolic Sitting 142 mmHg BP Diastolic Sitting 88 mmHg O2 % BldC Oximetry 98 % BMI (Body Mass Index) 25.0 kg/m2 05/04/2017 3:31pm Weight 135.00 lb Heart Rate 64 /min BP Systolic Sitting 134 mmHg BP Diastolic Sitting 78 mmHg Respiratory Rate 15 /min O2 % BldC Oximetry 98 % 12/08/2016 3:26pm Weight 136.38 lb Heart Rate 64 /min BP Systolic Sitting 160 mmHg BP Diastolic Sitting 94 mmHg Body Temperature 98.8 F O2 % BldC Oximetry 98 % 11/13/2016 8:07am Weight 136.25 lb Heart Rate 73 /min BP Systolic Sitting 140 mmHg BP Diastolic Sitting 84 mmHg Body Temperature 98.2 F O2 % BldC Oximetry 98 % 10/25/2016 1:06pm Weight 142.00 lb with shoes Heart Rate 64 /min BP Systolic 134 mmHg BP Diastolic 102 mmHg O2 % BldC Oximetry 98 % 10/05/2016 11:37am Weight 139.25 lb Heart Rate 87 /min BP Systolic Sitting 160 mmHg BP Diastolic Sitting 100 mmHg Body Temperature 98.5 F O2 % BldC Oximetry 98 % 09/06/2016 10:18am Height 62.5 inches 5'2.50" Weight 145.00 lb Heart Rate 81 /min BP Systolic 138 mmHg BP Diastolic 76 mmHg Body Temperature 98.4 F O2 % BldC Oximetry 97 % BMI (Body Mass Index) 26.1 kg/m2 01/05/2016 3:40pm Weight 143.12 lb Heart Rate 86 /min BP Systolic Sitting 110 mmHg BP Diastolic Sitting 62 mmHg Body Temperature 98.5 F O2 % BldC Oximetry 99 % 07/23/2015 3:44pm Height 62.5 inches 5'2.50" Weight 150.00 lb Heart Rate 90 /min BP Systolic Sitting 130 mmHg BP Diastolic Sitting 88 mmHg Body Temperature 98.4 F O2 % BldC Oximetry 97 % BMI (Body Mass Index) 27.0 kg/m2 03/11/2015 9:16am Height 62.5 inches 5'2.50" Weight 148.00 lb Heart Rate 90 /min BP Systolic Sitting 148 mmHg BP Diastolic Sitting 84 mmHg Body Temperature 98.4 F O2 % BldC Oximetry 97 % BMI (Body Mass Index) 26.6 kg/m2 03/02/2015 12:57pm Height 62.5 inches 5'2.50" Weight 145.00 lb Heart Rate 88 /min BP Systolic Sitting 138 mmHg BP Diastolic Sitting 88 mmHg Body Temperature 99.1 F O2 % BldC Oximetry 97 % BMI (Body Mass Index) 26.1 kg/m2 02/01/2015 4:51pm Height 62.5 inches 5'2.50" Weight 143.00 lb Heart Rate 114 /min BP Systolic Sitting 144 mmHg BP Diastolic Sitting 100 mmHg Body Temperature 97.5 F O2 % BldC Oximetry 97 % BMI (Body Mass Index) 25.7 kg/m2 11/17/2014 3:41pm Height 62.5 inches 5'2.50" Weight 143.00 lb Heart Rate 73 /min BP Systolic Sitting 140 mmHg BP Diastolic Sitting 80 mmHg Body Temperature 98.8 F O2 % BldC Oximetry 98 % BMI (Body Mass Index) 25.7 kg/m2 08/26/2014 2:19pm Weight 145.00 lb Heart Rate 84 /min BP Systolic Sitting 140 mmHg BP Diastolic Sitting 84 mmHg Body Temperature 98.6 F O2 % BldC Oximetry 99 % 07/16/2014 1:41pm Weight 150.50 lb Heart Rate 80 /min BP Systolic Sitting 144 mmHg BP Diastolic Sitting 92 mmHg Body Temperature 98.3 F O2 % BldC Oximetry 98 % 08/06/2013 2:34pm Height 62.5 inches 5'2.50" Weight 146.50 lb Heart Rate 84 /min BP Systolic Sitting 134 mmHg BP Diastolic Sitting 92 mmHg Body Temperature 99.0 F BMI (Body Mass Index) 26.4 kg/m2 04/11/2013 3:53pm Weight 147.00 lb Heart Rate 90 /min BP Systolic Sitting 122 mmHg BP Diastolic Sitting 68 mmHg Body Temperature 99.2 F O2 % BldC Oximetry 98 % 12/13/2012 9:31am Height 62 inches 5'2" Weight 145.50 lb Heart Rate 80 /min BP Systolic Sitting 150 mmHg BP Diastolic Sitting 86 mmHg BMI (Body Mass Index) 26.6 kg/m2 09/12/2012 12:17pm Height 62.5 inches 5'2.50" Weight 141.00 lb Heart Rate 78 /min BP Systolic Sitting 120 mmHg BP Diastolic Sitting 78 mmHg Body Temperature 98.0 F BMI (Body Mass Index) 25.4 kg/m2 07/03/2012 2:17pm Height 62.5 inches 5'2.50" Weight 140.00 lb Heart Rate 74 /min BP Systolic Sitting 124 mmHg BP Diastolic Sitting 76 mmHg BMI (Body Mass Index) 25.2 kg/m2 06/04/2012 10:24am Height 62.5 inches 5'2.50" Weight 148.00 lb Heart Rate 78 /min BP Systolic Sitting 118 mmHg BP Diastolic Sitting 70 mmHg BMI (Body Mass Index) 26.6 kg/m2 03/27/2012 4:43pm Height 62.5 inches 5'2.50" Weight 135.00 lb Heart Rate 74 /min BP Systolic Sitting 130 mmHg BP Diastolic Sitting 74 mmHg BMI (Body Mass Index) 24.3 kg/m2 01/24/2012 4:19pm Height 62.5 inches 5'2.50" Weight 138.00 lb Heart Rate 76 /min BP Systolic Sitting 108 mmHg BP Diastolic Sitting 72 mmHg BMI (Body Mass Index) 24.8 kg/m2 12/08/2011 3:33pm Height 62.5 inches 5'2.50" Weight 136.00 lb Heart Rate 70 /min BP Systolic Sitting 108 mmHg BP Diastolic Sitting 64 mmHg BMI (Body Mass Index) 24.5 kg/m2 10/12/2011 10:02am Height 62.5 inches 5'2.50" Weight 137.00 lb Heart Rate 60 /min BP Systolic Sitting 132 mmHg BP Diastolic Sitting 90 mmHg BMI (Body Mass Index) 24.7 kg/m2 10/04/2011 1:47pm Height 62.5 inches 5'2.50" Weight 134.00 lb Heart Rate 84 /min BP Systolic Sitting 136 mmHg BP Diastolic Sitting 84 mmHg BMI (Body Mass Index) 24.1 kg/m2 07/20/2011 12:28pm Height 61 inches 5'1" Weight 136.00 lb Heart Rate 78 /min BP Systolic Sitting 110 mmHg BP Diastolic Sitting 70 mmHg Body Temperature 97.0 F BMI (Body Mass Index) 25.7 kg/m2 07/18/2011 10:49am Height 61 inches 5'1" Weight 136.00 lb Heart Rate 76 /min BP Systolic Sitting 122 mmHg BP Diastolic Sitting 64 mmHg BMI (Body Mass Index) 25.7 kg/m2 05/19/2011 4:23pm Height 61 inches 5'1" Weight 144.00 lb BP Systolic Sitting 152 mmHg L BP Diastolic Sitting 88 mmHg L BMI (Body Mass Index) 27.2 kg/m2 03/15/2011 4:54pm Height 61 inches 5'1" Weight 135.00 lb Heart Rate 76 /min BP Systolic Sitting 138 mmHg BP Diastolic Sitting 82 mmHg BMI (Body Mass Index) 25.5 kg/m2 01/26/2011 4:04pm Height 61 inches 5'1" Weight 138.00 lb Heart Rate 65 /min BP Systolic Sitting 135 mmHg BP Diastolic Sitting 80 mmHg BMI (Body Mass Index) 26.1 kg/m2 10/26/2010 11:46am Weight 136.00 lb Heart Rate 68 /min BP Systolic Sitting 132 mmHg BP Diastolic Sitting 92 mmHg Respiratory Rate 18 /min 07/26/2010 11:22am Weight 143.00 lb Heart Rate 84 /min BP Systolic Sitting 144 mmHg BP Diastolic Sitting 88 mmHg 05/24/2010 4:12pm Weight 144.00 lb Heart Rate 90 /min BP Systolic Sitting 150 mmHg BP Diastolic Sitting 80 mmHg 04/06/2010 1:04pm Weight 135.00 lb Heart Rate 80 /min BP Systolic 130 mmHg BP Diastolic 80 mmHg 12/30/2009 4:04pm Height 61 inches 5'1" Weight 131.00 lb Heart Rate 80 /min BP Systolic Sitting 142 mmHg BP Diastolic Sitting 85 mmHg BMI (Body Mass Index) 24.7 kg/m2 09/28/2009 3:27pm Height 61 inches 5'1" Weight 129.75 lb Heart Rate 88 /min BP Systolic Sitting 132 mmHg BP Diastolic Sitting 82 mmHg BMI (Body Mass Index) 24.5 kg/m2 08/18/2009 2:56pm Weight 122.00 lb Heart Rate 82 /min BP Systolic Sitting 160 mmHg BP Diastolic Sitting 80 mmHg 08/16/2009 4:26pm BP Systolic Sitting 136 mmHg BP Diastolic Sitting 80 mmHg 07/15/2009 11:10am BP Systolic Sitting 130 mmHg BP Diastolic Sitting 88 mmHg 07/15/2009 9:45am Height 61 inches 5'1" Weight 125.75 lb BMI (Body Mass Index) 23.8 kg/m2 Results Test Date Facility Test Result H/L Range Note Urine Culture And 04/24/2018 [facility] Urine SEE RESULT 1 , [address] [place] [address] [phone] Poc Urinalysis 04/24/2018 [facility] Poc Glucose, Negative Negative [address] [place] [address] [phone] Poc Bilirubin, Urine Negative Negative Poc Ketone, Urine Negative Negative Poc Specific [place], Urine 1.010 N 1.010-1.030 Poc Blood, Urine Trace-intact Abnormal Negative Poc pH, Urine 6.0 N 5-9 Poc Protein, Urine Negative Negative Poc Urobilinogen, Urine 0.2 Negative Poc Nitrite, Urine Negative Negative Poc Leukocytes, Urine 1+ Abnormal Negative Poc Color, Urine Yellow Poc Clarity, Urine Clear 3 Order 03/11/2018 [facility] Nebulizer <pending> [address] [place] [address] [phone] Laboratory test 01/09/2018 [facility] Cytology SEE RESULT [address] [place] [address] [phone] Lipid Profile 07/26/2017 [facility] Triglycerides 154 mg/dL 6 (Trig/Chol/HDL) [address] [place] [address] [phone] Cholesterol 197 mg/dL 7 HDL Cholesterol 47.1 mg/dL 8 LDL Cholesterol 119 mg/dL 9 Comp Metabolic Panel 07/26/2017 [facility] Sodium 139 mmol/L N 139-[address] [place] [address] [phone] Potassium 4.3 mmol/L N 3.5-5.0 Chloride 103 mmol/L N 101-111 Co2 Carbon Dioxide 29 mmol/L N 22-32 Anion Gap 7 mmol/L N 2-11 Glucose 107 mg/dL High 70-100 Blood Urea Nitrogen 18 mg/dL N 6-24 Creatinine 0.69 mg/dL N 0.51-0.95 BUN/Creatinine Ratio 26.1 High 8-20 Calcium 9.5 mg/dL N 8.6-10.3 Total Protein 6.3 g/dL Low 6.4-8.9 Albumin 3.8 g/dL N 3.2-5.2 Globulin 2.5 g/dL N 2-4 Albumin/Globulin Ratio 1.5 N 1-3 Total Bilirubin 0.20 mg/dL N 0.2-1.0 Alkaline Phosphatase 77 U/L N 34-104 Alt 9 U/L N 7-52 Ast 11 U/L Low 13-39 Egfr Non- 85.9 >60 Egfr 110.5 >60 10 Laboratory test 07/26/2017 [facility] TSH (Thyroid 1.32 mcIU/mL N 0.34-5.60 [address] Stim [place]orm) [place] [address] [phone] Vitamin D Total 25(Oh) 17.1 ng/mL Low 20-50 12 Hemoglobin A1c (Glyco HGB) 5.5 % N 4.0-5.6 13 Laboratory test 02/22/2017 [facility] Vitamin D 23.8 ng/mL N 20-[address] Total 25(Oh) [place] [address] [phone] Laboratory test 09/06/2016 [facility] Vitamin D 21.9 ng/mL Low 30-[address] Total 25(Oh) [place] [address] [phone] CBC Auto Diff 09/06/2016 [facility] White Blood 7.3 N 3.5- 10.[address] Count 10^3/[place] [address] [phone] Red Blood Count 4.34 10^6/uL N 4.0-5.4 Hemoglobin 13.0 g/dL N 12.0-16.0 Hematocrit 39 % N 35-47 Mean Corpuscular Volume 90 fL N 80-97 Mean Corpuscular Hemoglobin 30 pg N 27-31 Mean Corpuscular HGB Conc 33 g/dL N 31-36 Red Cell Distribution Width 13 % N 10.5-15 Platelet Count 222 10^3/uL N 150-450 Mean Platelet Volume 8 um3 N 7.4-10.4 Abs Neutrophils 4.3 10^3/uL N 1.5-7.7 Abs Lymphocytes 2.2 10^3/uL N 1.0-4.8 Abs Monocytes 0.5 10^3/uL N 0-0.8 Abs Eosinophils 0.3 10^3/uL N 0-0.6 Abs Basophils 0 10^3/uL N 0-0.2 Abs Nucleated RBC 0 10^3/uL N Granulocyte % 59.1 % N 38-83 Lymphocyte % 30.6 % N 25-47 Monocyte % 6.2 % N 1-9 Eosinophil % 3.5 % N 0-6 Basophil % 0.6 % N 0-2 Nucleated Red Blood Cells % 0.1 N Basic Metabolic Panel 07/17/2016 [facility] Sodium 135 mmol/L N 133-[address] [place] [address] [phone] Potassium 4.3 mmol/L N 3.5-5.0 Chloride 102 mmol/L N 101-111 Co2 Carbon Dioxide 27 mmol/L N 22-32 Anion Gap 6 mmol/L N 2-11 Glucose 129 mg/dL High 70-100 Blood Urea Nitrogen 10 mg/dL N 6-24 Creatinine 0.67 mg/dL N 0.51-0.95 BUN/Creatinine Ratio 14.9 N 8-20 Calcium 9.6 mg/dL N 8.6-10.3 Egfr Non- 89.2 N >60 Egfr 114.7 N >60 14 Lipid Profile 07/17/2016 [facility] Triglycerides 104 mg/dL N 15 (Trig/Chol/HDL) [address] [place] [address] [phone] Cholesterol 257 mg/dL N 16 HDL Cholesterol 53.3 mg/dL N 17 LDL Cholesterol 183 mg/dL N 18 Laboratory test 07/11/2016 [facility] Hemoglobin A1c 5.4 % N Less than [address] (Glyco HGB) 6.0 [place] [address] [phone] Laboratory test 07/11/2016 [facility] Vitamin D Total 11.9 Low 30-[address] 25(Oh) ng/[place] [address] [phone] Laboratory test 07/23/2015 [facility] Vitamin D Total < 7.0 Low 30-[address] 25(Oh) ng/[place] [address] [phone] Laboratory test 02/09/2015 [facility] Cholesterol 236 N [address] mg/[place] [address] [phone] LDL Cholesterol Direct 155 mg/dL N 21 Hemoglobin A1c (Glyco HGB) 5.6 % N Less than 6.0 22 Comp Metabolic Panel 08/25/2014 [facility] Sodium 136 mmol/L N 133-[address] [place] [address] [phone] Potassium 4.0 mmol/L N 3.5-5.0 Chloride 103 mmol/L N 101-111 Co2 Carbon Dioxide 27 mmol/L N 22-32 Anion Gap 6 mmol/L N 2-11 Glucose 98 mg/dL N 70-100 Blood Urea Nitrogen 11 mg/dL N 6-24 Creatinine 0.59 mg/dL N 0.51-0.95 BUN/Creatinine Ratio 18.6 N 8-20 Calcium 9.4 mg/dL N 8.6-10.3 Total Protein 7.0 g/dL N 6.4-8.9 Albumin 4.4 g/dL N 3.2-5.2 Globulin 2.6 g/dL N 2-4 Albumin/Globulin Ratio 1.7 N 1-3 Total Bilirubin 0.40 mg/dL N 0.2-1.0 Alkaline Phosphatase 154 U/L High 34-104 Alt 12 U/L N 7-52 Ast 12 U/L Low 13-39 Egfr Non- 103.6 N >60 Egfr 133.3 N >60 23 CBC Auto Diff 08/25/2014 [facility] White Blood 7.3 10^3/uL N 4.8-10.[address] [place] [address] [phone] Red Blood Count 4.41 10^6/uL N 4.0-5.4 Hemoglobin 13.5 g/dL N 12.0-16.0 Hematocrit 41 % N 35-47 Mean Corpuscular Volume 93 fL N 80-97 Mean Corpuscular Hemoglobin 31 pg N 27-31 Mean Corpuscular HGB Conc 33 g/dL N 31-36 Red Cell Distribution Width 13 % N 10.5-15 Platelet Count 295 10^3/uL N 150-450 Mean Platelet Volume 7 um3 Low 7.4-10.4 Abs Neutrophils 4.9 10^3/uL N 1.5-7.7 Abs Lymphocytes 1.7 10^3/uL N 1.0-4.8 Abs Monocytes 0.4 10^3/uL N 0-0.8 Abs Eosinophils 0.2 10^3/uL N 0-0.6 Abs Basophils 0.1 10^3/uL N 0-0.2 Abs Nucleated RBC 0 10^3/uL N Granulocyte % 67.5 % N 38-83 Lymphocyte % 23.9 % Low 25-47 Monocyte % 4.8 % N 1-9 Eosinophil % 3.1 % N 0-6 Basophil % 0.7 % N 0-2 Nucleated Red Blood Cells % 0 N Laboratory test 08/06/2013 [facility] Throat Culture (SEE NOTE) [address] [place] [address] [phone] CBC Auto Diff 07/25/2013 [facility] White Blood 10.5 N 4.8-[address] Count 10^3/uL .8 [place] [address] [phone] Red Blood Count 4.30 10^6/uL N 4.0-5.4 Hemoglobin 13.1 g/dL N 12.0-16.0 Hematocrit 39 % N 35-47 Mean Corpuscular Volume 90 fL N 80-97 Mean Corpuscular Hemoglobin 31 pg N 27-31 Mean Corpuscular HGB Conc 34 g/dL N 31-36 Red Cell Distribution Width 13 % N 10.5-15 Platelet Count 242 10^3/uL N 150-450 Mean Platelet Volume 8 um3 N 7.4-10.4 Abs Neutrophils 9.5 10^3/uL High 1.5-7.7 Abs Lymphocytes 0.8 10^3/uL Low 1.0-4.8 Abs Monocytes 0.2 10^3/uL N 0-0.8 Abs Eosinophils 0 10^3/uL N 0-0.6 Abs Basophils 0 10^3/uL N 0-0.2 Abs Nucleated RBC 0 10^3/uL N Granulocyte % 90.5 % High 38-83 Lymphocyte % 7.6 % Low 25-47 Monocyte % 1.8 % N 1-9 Eosinophil % 0 % N 0-6 Basophil % 0.1 % N 0-2 Nucleated Red Blood Cells % 0 N Comp Metabolic Panel 07/25/2013 [facility] Sodium 135 mmol/L N 133-[address] [place] [address] [phone] Potassium 3.8 mmol/L N 3.7-5.6 Chloride 102 mmol/L N 101-111 Co2 Carbon Dioxide 23 mmol/L N 22-32 Anion Gap 10 mmol/L N 2-11 Glucose 163 mg/dL High 70-100 Blood Urea Nitrogen 15 mg/dL N 6-24 Creatinine 0.63 mg/dL N 0.51-0.95 BUN/Creatinine Ratio 23.8 High 8-20 Calcium 9.4 mg/dL N 8.6-10.3 Total Protein 7.2 g/dL N 6.4-8.9 Albumin 4.5 g/dL N 3.2-5.2 Globulin 2.7 g/dL N 2-4 Albumin/Globulin Ratio 1.7 N 1-3 Total Bilirubin 0.30 mg/dL N 0.2-1.0 Alkaline Phosphatase 113 U/L High 34-104 Alt 27 U/L N 7-52 Ast 15 U/L N 13-39 Egfr Non- 96.7 N >60 Egfr 124.4 N >60 26 Rapid Influenza 04/08/2013 [facility] Rapid Influenza (SEE NOTE ) 27 A B Antigen [address] [place] [address] [phone] Comp Metabolic 04/08/2013 [facility] Sodium 132 mmol/L Low 133 -[address] [place] [address] [phone] Potassium 3.8 mmol/L 3.5-5.0 Chloride 102 mmol/L 101-111 Co2 Carbon Dioxide 21.0 mmol/L Low 22-32 Anion Gap 9.0 mmol/L 2-11 Glucose 126 mg/dL High 70-100 Blood Urea Nitrogen 6 mg/dL 6-24 Creatinine 0.70 mg/dL 0.50-1.40 BUN/Creatinine Ratio 8.6 8-20 Calcium 9.6 mg/dL 8.1-9.9 Total Protein 8.2 g/dL High 6.2-8.1 Albumin 4.2 g/dL 3.6-5.4 Globulin 4.0 g/dL 2-4 Albumin/Globulin Ratio 1.1 1-3 Total Bilirubin 0.7 mg/dL 0.4-1.5 Alkaline Phosphatase 118 U/L High 30-110 Alt 33 U/L 14-54 Ast 43 U/L High 12-42 Egfr Non- 85.6 >60 Egfr 110.1 >60 28 CBC Auto Diff 04/08/2013 [facility] White Blood 5.7 10^3/uL 4.8-10.[address] [place] [address] [phone] Red Blood Count 4.47 10^6/uL 4.0-5.4 Hemoglobin 13.8 g/dL 12.0-16.0 Hematocrit 41 % 35-47 Mean Corpuscular Volume 91 fL 80-97 Mean Corpuscular Hemoglobin 31 pg 27-31 Mean Corpuscular HGB Conc 34 g/dL 31-36 Red Cell Distribution Width 13 % 10.5-15 Platelet Count 184 10^3/uL 150-450 Mean Platelet Volume 7 um3 Low 7.4-10.4 Abs Neutrophils 4.9 10^3/uL 1.5-7.7 Abs Lymphocytes 0.4 10^3/uL Low 1.0-4.8 Abs Monocytes 0.3 10^3/uL 0-0.8 Abs Eosinophils 0 10^3/uL 0-0.6 Abs Basophils 0 10^3/uL 0-0.2 Abs Nucleated RBC 0 10^3/uL Granulocyte % 87.1 % High 38-83 Lymphocyte % 6.7 % Low 25-47 Monocyte % 5.4 % 1-9 Eosinophil % 0.4 % 0-6 Basophil % 0.4 % 0-2 Nucleated Red Blood Cells % 0.1 Urine Culture And 11/30/2012 [facility] Urine Culture (SEE NOTE ) [address] [place] [address] [phone] Vitamin D, 25 12/13/2011 [facility] 25-Hydroxy <4.0 ng/mL () Hydroxy [address] Vitamin [place]2 [place] [address] [phone] 25-Hydroxy Vitamin D3 25 ng/mL () 25-Hydroxy Vitamin D Total 25 ng/mL () 30 PTH Intact, Inc 12/13/2011 [facility] PTH Intact 4.7 PMOL/L 1.3-9.3 Total Calcium [address] [place] [address] [phone] Calcium For Pthi 9.5 mg/dL 8.1-9.9 31 Lipid Profile 10/02/2011 [facility] Triglyceride 196 mg/dL 40 -200 (Trig/Chol/HDL) [address] [place], [place] [address] [phone] Cholesterol 160 mg/dL Less Than 200 32 High Density Lipoprotein 43 mg/dL 40-60 33 Cholesterol/HDL Ratio 3.72 AVERAGE 1-4.44 Low Density Lipoprotein 78 mg/dL Less Than 100 34 Basic Metabolic Panel 10/02/2011 [facility] Sodium 135 mmol/L 135-145 [address] [place] [address] [phone] Potassium 4.2 mmol/L 3.5-5.0 Chloride 101 mmol/L 101-111 Co2 (Carbon Dioxide) 28.0 mmol/L 22-32 Anion Gap 6.0 mmol/L 2-11 35 Glucose 120 mg/dL High 70-100 BUN 14 mg/dL 6-24 Creatinine 0.7 mg/dL 0.50-1.40 One Over Creatinine 1.42 BUN/Creatinine Ratio 20.0 8-20 Calcium 9.4 mg/dL 8.1-9.9 eGFR Non- 85.9 > 60 eGFR 110.5 > 60 36 Laboratory 10/02/2011 [facility] Hepatitis C Nonreactive Nonreactive test finding 101 [facility] [place] [address] [phone] Urine Culture 02/23/2010 [facility] Urine Culture NG 37 & Sensitivi 101 [facility] [place] [address] [phone] Surgical 10/05/2009 [facility] Surgical 38 Pathology 101 [facility] Pathology --- <[place] [address] NOTE> [phone] Lipid Profile 09/27/2009 [facility] Triglyceride 159 mg/dL 40 -200 (Trig/Chol/HD [address] [facility] L) [place] [address] [phone] Cholesterol 220 mg/dL High Less Than 200 39 High Density Lipoprotein 45 mg/dL 40-60 40 Cholesterol/HDL Ratio 4.89 AVERAGE High 1-4.44 Low Density Lipoprotein 143 mg/dL High Less Than 100 41 Laboratory test 09/27/2009 [facility] CPK (Creatine 51 U/L 0- [address] Kinase) [place] [address] [phone] Comp Metabolic 09/27/2009 [facility] Sodium 136 135-[address] mmol/[place] [address] [phone] Potassium 3.8 mmol/L 3.5-5.0 Chloride 101 mmol/L 101-111 Co2 (Carbon Dioxide) 26.0 mmol/L 22-32 Anion Gap 9.0 mmol/L 2-11 42 Glucose 108 mg/dL High 70-100 43 BUN 12 mg/dL 6-24 Creatinine 0.70 mg/dL 0.50-1.40 One Over Creatinine 1.40 BUN/Creatinine Ratio 17.1 8-20 Calcium 9.7 mg/dL 8.1-9.9 44 Total Protein 7.0 GM/DL 6.2-8.1 Albumin 4.3 GM/DL 3.6-5.4 Globulin 2.7 GM/DL 2-4 Albumin/Globulin Ratio 1.6 1-3 Bilirubin Total 0.6 mg/dL 0.4-1.5 45 Alkaline Phosphatase 120 U/L High 30-110 Alt (SGPT) 15 U/L 14-54 Ast (Sgot) 16 U/L 12-42 eGFR Non- 92.0 > 60 eGFR 111.3 > 60 46 Urinalysis W/Microscopic 09/22/2009 [facility] Ua Color YELLOW Yellow [address] [place] [address] [phone] Appearance-Urine CLEAR Clear Specific [place]-Ur 1.014 1.010-1.030 Esterase-Urine NEGATIVE Negative Nitrite NEGATIVE Negative [id number]-NVI NEGATIVE Negative Protein-Urine NEGATIVE Negative PH-Urine 5.5 5-9 Blood-Urine NEGATIVE Negative Ketones-Urine NEGATIVE Negative Bilirubin-Ur NEGATIVE Negative Glucose-Urine NEGATIVE Negative WBC-Urine 0-2 0-5 RBC-Urine 0-2 0-2 Ursc-1 09/12/2009 [facility] Ampicillin [address] [place] [address] [phone] Amikacin <=2 S Ciprofloxacin <=0.25 S Ceftriaxone <=1 S Cefazolin <=4 S Nitrofurantoin <=16 S Gentamicin <=1 S Imipenem <=1 S Levofloxacin <=0.12 S Trimeth-Sulfa <=20 S Ceftazidime <=1 S Tigecycline <=0.5 S Piperacillin/Tazobactam <=4 S Urine Culture & 09/12/2009 [facility] Urine Culture ESCHERICHIA 48 Sensit[address] [facility] [place] [address] [phone] Urinalysis 09/12/2009 [facility] Ua Color YELLOW Yellow W/Microscopic [address] [place] [address] [phone] Appearance-Urine CLEAR Clear Specific [place]-Ur 1.017 1.010-1.030 Esterase-Urine 2+ Abnormal Negative Nitrite NEGATIVE Negative [id number]-Nc-RQD NEGATIVE Negative Protein-Urine NEGATIVE Negative PH-Urine 5.5 5-9 Blood-Urine 1+ Abnormal Negative Ketones-Urine NEGATIVE Negative Bilirubin-Ur NEGATIVE Negative Glucose-Urine NEGATIVE Negative WBC-Urine TNTC Abnormal 0-5 RBC-Urine 0-2 0-2 Mucus Urine SMALL None Epith Cells-Ur FEW None Bacteria-Urine 1+ None Lipid Profile 07/16/2009 [facility] Triglyceride 107 mg/dL 40 -200 (Trig/Chol/HDL) [address] [place] [address] [phone] Cholesterol 272 mg/dL High Less Than 200 49 High Density Lipoprotein 48 mg/dL 40-60 50 Cholesterol/HDL Ratio 5.67 AVERAGE High 1-4.44 Low Density Lipoprotein 203 mg/dL High Less Than 100 51 Comp Metabolic Panel 07/16/2009 [facility] Sodium 138 mmol/L 135-145 [address] [place] [address] [phone] Potassium 4.1 mmol/L 3.5-5.0 Chloride 105 mmol/L 101-111 Co2 (Carbon Dioxide) 26.0 mmol/L 22-32 Anion Gap 7.0 mmol/L 2-11 52 Glucose 109 mg/dL High 70-100 53 BUN 16 mg/dL 6-24 Creatinine 1.10 mg/dL 0.50-1.40 One Over Creatinine 0.90 BUN/Creatinine Ratio 14.5 8-20 Calcium 9.7 mg/dL 8.1-9.9 54 Total Protein 6.6 GM/DL 6.2-8.1 Albumin 4.2 GM/DL 3.6-5.4 Globulin 2.4 GM/DL 2-4 Albumin/Globulin Ratio 1.8 1-3 Bilirubin Total 0.7 mg/dL 0.4-1.5 55 Alkaline Phosphatase 100 U/L 30-110 Alt (SGPT) 13 U/L Low 14-54 Ast (Sgot) 15 U/L 12-42 eGFR Non- 54.8 > 60 eGFR 66.3 > 60 56 CBC With 07/16/2009 [facility] White Blood 3.8 CUMM Low 4.8- 10.8 Electronic Diff [address] [place] [address] [phone] Red Cell Count 4.03 CUMM Low 4.2-5.4 Hemoglobin 13.1 g/dL 12.0-16.0 Hematocrit 38 % 35-47 Mean Corpuscular Volume 94 um3 79-97 Mean Corpuscular Hemoglob 32 pg High 27-31 Mean Corpuscular HGB Cone 35 g/dL 32-36 Redcell Distribution WDTH 14 % 10.5-15 Platelet Count 220 CUMM 150-450 Mean Platelet Volume 7.6 um3 7.4-10.4 Gran % 61.7 % 38-83 Lymph % 29.5 % 25-47 Mononuclear % 6.5 % 1-9 Eosinophil % 1.8 % 0-6 Basophil % 0.5 % 0-2 Abs Lymphs 1.1 1.0-4.8 Abs Mononuclear 0.2 0-0.8 Absolute Neutrophil Count 2.3 1.5-7.7 Abs Eosinophils 0.1 0-0.6 Abs Basophils 0 0-0.2 Urinalysis W/Microscopic 07/16/2009 [facility] Ua Color YELLOW Yellow [address] [place] [address] [phone] Appearance-Urine CLEAR Clear Specific [place]-Ur 1.018 1.010-1.030 Esterase-Urine NEGATIVE Negative Nitrite NEGATIVE Negative Bbnvzdmrvggt-Dx-JPM NEGATIVE Negative Protein-Urine NEGATIVE Negative PH-Urine 6.0 5-9 Blood-Urine NEGATIVE Negative Ketones-Urine NEGATIVE Negative Bilirubin-Ur NEGATIVE Negative Glucose-Urine NEGATIVE Negative RBC-Urine 0-2 0-2 Epith Cells-Ur RARE None C Peptide 07/16/2009 [facility] C-Peptide ng/mL 1.8 ng/mL 0.9 -4.[address] [place] [address] [phone] C-Peptide pmol/L 600 pmol/L [phone] 57 1 [id number] 2 SEE RESULT BELOW Name: DUTCH LINTON : [address]: Singh Blackburn MD Acct: [id number] Unit: [id number] AGE: 62 Location: [facility] Re04/24/18 SEX: F Status: DEP ER SPEC: [id number] ALFREDO: 04/24/[address] [facility] [address]: Marzena CACERES REQ: [id number] RECD: 04/25/18 STATUS: MURALI MORENO DR: Ermias Blackburn MD _ SOURCE: URINE SPDESC: ORDERED: Urine Culture COMMENTS: [id number] Procedure Result Reported Site Urine Culture Final 04/27/18925 ML Organism 1 KLEBSIELLA PNEUMONIAE [place] Count >100,000 (Many) CFU/ML 1. KLEBSIELLA PNEUMONIAE [facility] RX --------- ------ Ampicillin R Cefazolin <=4 S Cefepime <=1 S Ceftriaxone <=1 S Ciprofloxacin <=0.25 S Gentamicin <=1 S Levofloxacin <=0.12 S Meropenem <=0.25 S Nitrofurantoin 32 S Tetracycline <=1 S Pipercillin/Tazobactam <=4 S Trimethoprim/Sulfamethoxazole <=20 S Amoxicillin/Clavulanic Acid 4 S Aztreonam <=1 S Contact the Microbiology Department for any additional antibiotic reporting. * ML - Main Lab . END OF REPORT DEPARTMENT OF PATHOLOGY, [address] [place] [address] Shiva Calabrese M.D. Director [facility] # [id number] 3 Patch Worker: [id number] 4 02 SAT @ 99% after treatment, pt tolerated well 5 SEE RESULT BELOW Name: DUTCH LINTON : [address]: Portillo Coronado NP Acct: [id number] Unit: [id number] AGE: 62 Location: [facility] Re01/09/18 SEX: F Status: REG REF SPEC: [id number] ALFREDO: 01/09/[address]: Portillo Coronado NP REQ: [id number] RECD: 01/09/18 STATUS: SOUT _ ORDERED: TP IMAGE ANALYS, HPV/Thin Prep COMMENTS: [id number] Negative for Intraepithelial lesion or Malignancy Date Time Test Result Flag (u) Normal Range 01/09/18 1937 @ HPV RNA Negative Negative @ @ The high-risk HPV types detected by the assay include: 16, @ 18, 31, 33, 35, 39, 45, 51, 52, 56, 58, 59, 66, and 68. A. Ectocervical/Endocervical Specimen Adequacy: Satisfactory of evaluation Transformation zone component cannot be definitely identified due to presence of atrophy or other hormonal changes Patient Information: HPV: High risk HPV RNA testing regardless of pap results. Actual Specimen Date: 01/09/18 Post Menopausal?: Y Hysterectomy?: Y Previous Abnormal Pap Smears?:N Signed by and Reported on: LM Quevedo(ASCP) 1312 This Pap test was evaluated with the assistance of the NegoramaPrep Test Imaging System. Due to cytologic findings at the information services manager microscope, comprehensive manual rescreening by a High School Math Tutor may be required. The Pap Smear is a screening test designed to aid in the detection of premalignant and malignant conditions of the uterine cervix. It is not a diagnostic procedure and should not be used as the sole means of detecting cervical cancer. Both false- positive and false- negative reports do occur. Depending on your risk status, a Pap smear should be obtained and evaluated every 1-3 years. END OF REPORT DEPARTMENT OF PATHOLOGY, [address] [place] [address] Shiva Calabrese M.D. Director [facility] # [id number] 6 Desirable: <150 Borderline High: 150-199 High: 200-499 Very High: >500 7 Desirable: <200 Borderline High: 200-239 High: >239 8 Low: <40 Desirable: 40-60 High: >60 9 Desirable: <100 Near Optimal: 100-129 Borderline High: 130-159 High: 160-189 Very High: >189 10 Because ethnic data is not always readily available, this report includes an eGFR for both -Americans and non- Americans. The National Kidney Disease Education Program (NKDEP) does not endorse the use of the MDRD equation for patients that are not between the ages of 18 and 70, are , have extremes of body size, muscle mass, or nutritional status, or are non- or non-. According to the National Kidney Foundation, irrespective of diagnosis, the stage of the disease is based on the level of kidney function: Stage Description GFR(mL/min/1.73 m(2)) 1 Kidney damage with normal or decreased GFR 90 2 Kidney damage with mild decrease in GFR 60-89 3 Moderate decrease in GFR 30-59 4 Severe decrease in GFR 15-29 5 Kidney failure <15 (or dialysis) 11 FASTING 10 HOUR 12 FASTING 10 HOUR 13 Therapeutic target for the treatment of diabetes mellitus patients is <7% HBA1C, and in selective patients <6.0%. Please refer to [place] [employer] diabetic care guidelines for further information. 14 Because ethnic data is not always readily available, this report includes an eGFR for both -Americans and non- Americans. The National Kidney Disease Education Program (NKDEP) does not endorse the use of the MDRD equation for patients that are not between the ages of 18 and 70, are , have extremes of body size, muscle mass, or nutritional status, or are non- or non-. According to the National Kidney Foundation, irrespective of diagnosis, the stage of the disease is based on the level of kidney function: Stage Description GFR(mL/min/1.73 m(2)) 1 Kidney damage with normal or decreased GFR 90 2 Kidney damage with mild decrease in GFR 60-89 3 Moderate decrease in GFR 30-59 4 Severe decrease in GFR 15-29 5 Kidney failure <15 (or dialysis) 15 Desirable <150 Borderline high 150-199 High 200-499 Very High >500 16 Desirable <200 Borderline high 200-239 High >239 17 Low <40 Desirable: 40-60 High: >60 18 Desirable: <100 mg/dL Near Optimal: 100-129 mg/dL Borderline High: 130-159 mg/dL High: 160-189 mg/dL Very High: >189 mg/dL 19 Therapeutic target for the treatment of diabetes Mellitus patients is <7% HBA1C, and in selective patients <6.0%.Please refer to [place] [employer] Diabetic care guidelines for further information. 20 Desirable <200 Borderline high 200-239 High >239 21 Desirable: <100 mg/dL Near Optimal: 100-129 mg/dL Borderline High: 130-159 mg/dL High: 160-189 mg/dL Very High: >189 mg/dL 22 Therapeutic target for the treatment of diabetes Mellitus patients is <7% HBA1C, and in selective patients <6.0%.Please refer to [place] [employer] Diabetic care guidelines for further information. 23 Because ethnic data is not always readily available, this report includes an eGFR for both -Americans and non- Americans. The National Kidney Disease Education Program (NKDEP) does not endorse the use of the MDRD equation for patients that are not between the ages of 18 and 70, are , have extremes of body size, muscle mass, or nutritional status, or are non- or non-. According to the National Kidney Foundation, irrespective of diagnosis, the stage of the disease is based on the level of kidney function: Stage Description GFR(mL/min/1.73 m(2)) 1 Kidney damage with normal or decreased GFR 90 2 Kidney damage with mild decrease in GFR 60-89 3 Moderate decrease in GFR 30-59 4 Severe decrease in GFR 15-29 5 Kidney failure <15 (or dialysis) 24 RUN DATE: 08/08/13 [facility] LAB LIVE PAGE 1 RUN TIME: 1148 [address] [place], [place] [address] Specimen Inquiry Name: DUTCH LINTON : [address]: Roshan Desai MD Acct: [id number] Unit: [id number] AGE: 58 Location: [facility] Re08/06/13 SEX: F Status: REG REF SPEC: [id number] ALFREDO: 08/06/13-[address] [facility] [address]: Ermias Desai MD REQ: [id number] RECD: 08/06/13 STATUS: COMP _ SOURCE: THROAT SPDESC: ORDERED: Throat Culture QUERIES: Medent Number [id number] Procedure Result Verified Site Throat Culture Final 08/08/13- 1148 ML Organism 1 NORMAL LUIGI Quantity 2+ END OF REPORT * ML=Testing performed at Main Lab DEPARTMENT OF PATHOLOGY, [address] [place] [address] Shiva Calabrese M.D. Director [facility] Permit #[id number] Call Results to Dr De Jesus's office on Backline [phone]~Patient waiting in lab for further in Because ethnic data is not always readily available, this report includes an eGFR for both -Americans and non- Americans. The National Kidney Disease Education Program (NKDEP) does not endorse the use of the MDRD equation for patients that are not between the ages of 18 and 70, are , have extremes of body size, muscle mass, or nutritional status, or are non- or non-. According to the National Kidney Foundation, irrespective of diagnosis, the stage of the disease is based on the level of kidney function: Stage Description GFR(mL/min/1.73 m(2)) 1 Kidney damage with normal or decreased GFR 90 2 Kidney damage with mild decrease in GFR 60-89 3 Moderate decrease in GFR 30-59 4 Severe decrease in GFR 15-29 5 Kidney failure <15 (or dialysis) 27 RUN DATE: 04/08/13 [facility] LAB LIVE PAGE 1 RUN TIME: [address] [place] [id number] Specimen Inquiry Name: DUTCH LINTON : [address]: Pietro Pritchard DO Acct: [id number] Unit: [id number] AGE: 57 Location: ED Re04/08/13 SEX: F Status: REG ER SPEC: [id number] [place]: 04/08/[address] [facility] [address]: Pietro Pritchard DO REQ: [id number] RECD: 04/08/13 STATUS: MURALI MORENO DR: Ermias Desai MD _ SOURCE: [facility]: ORDERED: Rapid Flu A B Procedure Result Verified Site Rapid Influenza A B Antigen Final 04/08/132241 ML Organism 1 Negative Influenza A B Antigen testing by enzyme immunoassay. Cell culture testing can be performed to confirm negative test results and to assist in detecting other viruses that can produce similar clinical symptoms. Please notify Microbiology Lab if further testing is desired. END OF REPORT * ML=Testing performed at Main Lab DEPARTMENT OF PATHOLOGY, [address] [place] [address] Shiva Calabrese M.D. Director [facility] Permit #[id number] 28 Because ethnic data is not always readily available, this report includes an eGFR for both -Americans and non- Americans. The National Kidney Disease Education Program (NKDEP) does not endorse the use of the MDRD equation for patients that are not between the ages of 18 and 70, are , have extremes of body size, muscle mass, or nutritional status, or are non- or non-. According to the National Kidney Foundation, irrespective of diagnosis, the stage of the disease is based on the level of kidney function: Stage Description GFR(mL/min/1.73 m(2)) 1 Kidney damage with normal or decreased GFR 90 2 Kidney damage with mild decrease in GFR 60-89 3 Moderate decrease in GFR 30-59 4 Severe decrease in GFR 15-29 5 Kidney failure <15 (or dialysis) 29 RUN DATE: 12/03/12 [facility] LAB LIVE PAGE 1 RUN TIME: [address] [place] [id number] Specimen Inquiry Name: DUTCH LINTON : [address]: Alvaro Tobar MD Acct: [id number] Unit: [id number] AGE: 57 Location: [facility] Re11/30/12 SEX: F Status: DEP ER SPEC: [id number] ALFREDO: 11/30/12-[address] [facility] [address]: Alvaro Tobar MD REQ: [id number] RECD: 12/01/12 STATUS: MURALI MORENO DR: CASTILLO Desai MD _ SOURCE: URINE [facility]: ORDERED: Urine Culture Procedure Result Verified Site Urine Culture Final 12/03/12- 0847 ML Organism 1 ESCHERICHIA COLI [place] Count >100,000 (Many) CFU/ML 1. ESCHERICHIA COLI M.I.C. RX --------- ------ Ampicillin 8 S Cefazolin <=4 S Cefepime <=1 S Ceftriaxone <=1 S Ciprofloxacin <=0.25 S Gentamicin <=1 S Imipenem <=0.25 S Levofloxacin <=0.12 S Meropenem <=0.25 S Nitrofurantoin 32 S Tetracycline <=1 S Pipercillin/Tazobactam <=4 S Trimethoprim/Sulfamethoxazole <=20 S Amoxicillin/Clavulanic Acid 4 S Aztreonam <=1 S Contact the Microbiology Department for any additional antibiotic reporting. END OF REPORT * ML=Testing performed at Main Lab DEPARTMENT OF PATHOLOGY, [address] [place] [address] Shiva Calabrese M.D. Director [facility] Permit #[id number] 30 -- REFERENCE VALUE -- 25-HYDROXY D TOTAL (D2+D3) Optimum levels in the normal population are 25-80 Test Performed by: [address] [address] Escalator Attendant: Adrien Short III, M.D. 31 Please note change in reference range effective 08 . 32 CHOLESTEROL INTERPRETATION: Desirable: Less than 200 MG/DL Borderline-High Risk: 200-239 MG/DL High-Risk: 240 MG/DL and over 33 HDL INTERPRETATION: Undesirable: High Risk: Less than 40 MG/DL Desirable: Low Risk: Greater than 60 MG/DL 34 LDL INTERPRETATION: Low Risk Optimal Level: LDL Less than 100 MG/DL Near or Above Optimal: LDL 100-129 MG/DL Borderline High Risk: LDL 130-159 MG/DL High Risk: LDL 160-189 MG/DL Very High Risk: LDL Greater than 189 MG/DL 35 Anion gap measurement may be of limited value in the presence of any alkalosis, especially in a combined acid base disorder. . 36 Because ethnic data is not always readily available, this report includes an eGFR for both -Americans and non- Americans. The National Kidney Disease Education Program (NKDEP) does not endorse the use of the MDRD equation for patients that are not between the ages of 18 and 70, are , have extremes of body size, muscle mass, or nutritional status, or are non- or non-. According to the National Kidney Foundation, irrespective of diagnosis, the stage of the disease is based on the level of kidney function: Stage Description GFR(mL/min/1.73 m(2)) 1 Kidney damage with normal or decreased GFR 90 2 Kidney damage with mild decrease in GFR 60-89 3 Moderate decrease in GFR 30-59 4 Severe decrease in GFR 15-29 5 Kidney failure <15 (or dialysis) 37 FINAL: NO GROWTH DAY 2 (<1,000 CFU/mL) 38 ---- RUN DATE: 10/07/09 [facility] NMI LIVE PAGE 1 RUN TIME: 1313 Specimen Inquiry RUN USER: INTERFACE -- Name: SHAILADUTCH Izabel Status: REG REF Re10/05/09 Age/Sex: 54/F Unit#: [id number] Location: [address] [place] [address].O.B. : 51 -- Specimen: [id number] SOUT Spec Date: 10/05/[address]: Marty garrett MD Spec Type: SURGICAL P Received: 10/06/09-1055 Copies to: Shashi Burnette SPECIMEN RANDOM COLON BIOPSIES HISTORY PRE-OP DIAGNOSIS: Rule out microscopic colitis POST-OP DIAGNOSIS: To cecum, normal, biopsy taken CLINICAL INFORMATION: Change in bowel habits GROSS DESCRIPTION Specimen received in formalin labelled [place] Random Colon Biopsies and consists of two, nieves, soft tissue fragments measuring 0.6 x 0.3 x 0.1 cm. Submitted entirely, one cassette. DIAGNOSIS Colon, random biopsies: A) Large intestinal mucosa with no significant pathologic abnormality. B) No evidence of microscopic/lymphocytic colitis, collagenous colitis or other chronic inflammatory bowel process identified. Signed Electronically by: SHIVA CALABRESE MD 10/07/09 1312 -- -- DEPARTMENT OF PATHOLOGY, [address] [place] [address] [facility] Permit #[id number] Rick Ritter M.D. Ehr Trainer Dir [place] -- 39 CHOLESTEROL INTERPRETATION: Desirable: Less than 200 MG/DL Borderline-High Risk: 200-239 MG/DL High-Risk: 240 MG/DL and over 40 HDL INTERPRETATION: Undesirable: High Risk: Less than 40 MG/DL Desirable: Low Risk: Greater than 60 MG/DL 41 LDL INTERPRETATION: Low Risk Optimal Level: LDL Less than 100 MG/DL Near or Above Optimal: LDL 100-129 MG/DL Borderline High Risk: LDL 130-159 MG/DL High Risk: LDL 160-189 MG/DL Very High Risk: LDL Greater than 189 MG/DL 42 Anion gap measurement may be of limited value in the presence of any alkalosis, especially in a combined acid base disorder. . 43 Note change in reference range as of 11/28/07. The change was based on recommendations from the [place] [employer]. 44 Please note change in reference range effective 07 . 45 A metabolite of Naproxen, O-desmethylnaproxen, has been shown to interfere with the Jendrassik-Combes method for measuring total bilirubin. Samples from patients who have taken Naproxen have shown spurious elevation in total bilirubin levels. 46 Because ethnic data is not always readily available, this report includes an eGFR for both -Americans and non- Americans. The National Kidney Disease Education Program (NKDEP) does not endorse the use of the MDRD equation for patients that are not between the ages of 18 and 70, are , have extremes of body size, muscle mass, or nutritional status, or are non- or non-. According to the National Kidney Foundation, irrespective of diagnosis, the stage of the disease is based on the level of kidney function: Stage Description GFR(mL/min/1.73 m(2)) 1 Kidney damage with normal or decreased GFR 90 2 Kidney damage with mild decrease in GFR 60-89 3 Moderate decrease in GFR 30-59 4 Severe decrease in GFR 15-29 5 Kidney failure <15 (or dialysis) 47 SPECIMEN DESCRIPTION: URINE, CLEAN CATCH 48 100^75-100,000 ORGANISMS/ML (MANY)^CCU 49 CHOLESTEROL INTERPRETATION: Desirable: Less than 200 MG/DL Borderline-High Risk: 200-239 MG/DL High-Risk: 240 MG/DL and over 50 HDL INTERPRETATION: Undesirable: High Risk: Less than 40 MG/DL Desirable: Low Risk: Greater than 60 MG/DL 51 LDL INTERPRETATION: Low Risk Optimal Level: LDL Less than 100 MG/DL Near or Above Optimal: LDL 100-129 MG/DL Borderline High Risk: LDL 130-159 MG/DL High Risk: LDL 160-189 MG/DL Very High Risk: LDL Greater than 189 MG/DL 52 Anion gap measurement may be of limited value in the presence of any alkalosis, especially in a combined acid base disorder. . 53 Note change in reference range as of 11/28/07. The change was based on recommendations from the [place] [employer]. 54 Please note change in reference range effective 07 . 55 A metabolite of Naproxen, O-desmethylnaproxen, has been shown to interfere with the Jendrassik-Combes method for measuring total bilirubin. Samples from patients who have taken Naproxen have shown spurious elevation in total bilirubin levels. 56 Because ethnic data is not always readily available, this report includes an eGFR for both -Americans and non- Americans. The National Kidney Disease Education Program (NKDEP) does not endorse the use of the MDRD equation for patients that are not between the ages of 18 and 70, are , have extremes of body size, muscle mass, or nutritional status, or are non- or non-. According to the National Kidney Foundation, irrespective of diagnosis, the stage of the disease is based on the level of kidney function: Stage Description GFR(mL/min/1.73 m(2)) 1 Kidney damage with normal or decreased GFR 90 2 Kidney damage with mild decrease in GFR 60-89 3 Moderate decrease in GFR 30-59 4 Severe decrease in GFR 15-29 5 Kidney failure <15 (or dialysis) 57 Test Performed by: [facility] Dpt of Lab Med and Pathology [address] [place], [place] [id number] Escalator Attendant: Adrien Short III, M.D. Procedures Date Code Description Status 03/11/2018 88081 Inhalation TX For Acute Airway Obstruction Completed W/Nebulizer/Inhaler 09/04/2017 [id number] Mammogram Completed 09/01/2016 [id number] Mammogram Completed 08/30/2015 [id number] Mammogram Completed 07/19/2015 [id number] Bone Mineral Density Test Completed 08/26/2014 [id number] Mammogram Completed 08/25/2013 [id number] Mammogram Completed 09/12/2012 [id number] Mammogram Completed 10/25/2011 38921 Xray Knee 3 Views Completed 10/25/2011 10217 Rad Exam; Knee, Ap&L Completed 10/12/2011 [id number] Bone Mineral Density Test Completed 09/12/2011 [id number] Mammogram Completed 09/08/2010 [id number] Mammogram Completed 10/05/2009 [id number] Colonoscopy Completed 08/26/2009 [id number] Mammogram Completed Encounters Type Date Location Provider Dx Diagnosis Office Visit 05/28/2018 [facility] Internal Korina Meadows MD I10 Essential ( primary) 4:40p Medicine - [address] G44.41 Drug-induced headache, not elsewhere classified, intractable G43.009 Migraine w/o aura, not intractable, w/o status migrainosus Office Visit 04/23/2018 4:00p [facility] Internal Korina Meadows G43.009 Migraine w/o aura, Medicine - not intractable, [address] w/o status migrainosus G44.41 Drug-induced headache, not elsewhere classified, intractable I10 Essential (primary) hypertension Office Visit 03/26/2018 2:40p [facility] Internal Korina Meadows, J30.9 Allergic rhinitis, Medicine - [address] J45.909 Unspecified asthma, uncomplicated Office Visit 03/11/2018 11:20a [facility] Internal Korina Meadows, J98.01 Acute bronchospasm Medicine - MD [address] Office Visit 01/09/2018 2:40p [facility] Internal Portillo Coronado, Z00.00 Encntr for general Medicine - ASSURANCE ANALYST adult medical exam [address] w/o abnormal findings Z12.4 Encounter for screening for malignant neoplasm of cervix G43.009 Migraine w/o aura, not intractable, w/o status migrainosus R53.83 Other fatigue E78.5 Hyperlipidemia, unspecified M54.5 Low back pain E55.9 Vitamin D deficiency, unspecified M81.0 Age-related osteoporosis w/o current pathological fracture Office Visit 05/04/2017 3:40p [facility] Internal Portillo Coronado, G43.009 Migraine w/o aura, Medicine - ASSURANCE ANALYST not intractable, [address] w/o status migrainosus G47.00 Insomnia, unspecified E55.9 Vitamin D deficiency, unspecified M81.0 Age-related osteoporosis w/o current pathological fracture E78.5 Hyperlipidemia, unspecified Office Visit 12/08/2016 3:40p [facility] Internal Ermias Hutchins T48.1x5A Adverse effect Isaac Desai M.D.,FACP of skeletal [address] muscle relaxants, init encntr T40.2x5A Adverse effect of other opioids, initial encounter M54.5 Low back pain Office Visit 11/13/2016 8:20a [facility] Internal Ermias Hutchins T48.1x5A Adverse effect Isaac Desai M.D.,FACP of skeletal [address] muscle relaxants, init encntr T40.2x5A Adverse effect of other opioids, initial encounter Office Visit 10/25/2016 1:00p [facility] Internal Portillo Coronado, M54.5 Low back pain Medicine - [address] E55.9 Vitamin D deficiency, unspecified G47.00 Insomnia, unspecified G43.009 Migraine w/o aura, not intractable, w/o status migrainosus M81.0 Age-related osteoporosis w/o current pathological fracture Office Visit 10/05/2016 12:10p [facility] Internal Ermias Hutchins M25.511 Pain in right Isaac Desai M.D.,FACP shoulder [address] Office Visit 09/06/2016 11:00a [facility] Internal Portillo Coronado, Z00.01 Encounter for Medicine - ASSURANCE ANALYST general adult [address] medical exam w abnormal findings G43.009 Migraine w/o aura, not intractable, w/o status migrainosus M81.0 Age-related osteoporosis w/o current pathological fracture E55.9 Vitamin D deficiency, unspecified Z13.1 Encounter for screening for diabetes mellitus Z13.220 Encounter for screening for lipoid disorders Z00.00 Encntr for general adult medical exam w/o abnormal findings Office Visit 01/05/2016 4:00p [facility] Internal Dada Be J45.909 Unspecified asthma, Medicine - ICU STAFF NURSE uncomplicated [address] J45.901 Unspecified asthma with (acute) exacerbation Office Visit 07/23/2015 3:40p [facility] Internal Ermias Hutchins M80.00xA Age-rel Isaac Desai M.D.,FACP osteopor w [address] current path fracture, unsp site, init S22.42xD Multiple fx of ribs, left side, subs for fx w routn heal Office Visit 03/11/2015 9:30a [facility] Internal Dada Be J06.9 Acute upper Medicine - [place] ICU STAFF NURSE respiratory Rd infection, unspecified R05 Cough Office Visit 03/02/2015 1:00p [facility] Yusuf Sequeira01.90 Acute sinusitis, Medicine - ICU STAFF NURSE unspecified [address] R05 Cough R50.9 Fever, unspecified Office Visit 02/01/2015 4:40p [facility] Internal Ermias Hutchins M25.511 Pain in right Medicine Minh Desai M.D.,FACP shoulder [address] Office Visit 11/17/2014 4:00p [facility] Internal Dada Be, ICU STAFF NURSE 461.1 Sinusitis Acute Medicine - Frontal [address] 346.10 Migraine Common W/O Intractable W/O Status Migrainosus 461.9 Sinusitis Acute Unspec Office Visit 08/26/2014 2:50p [facility] Internal Ermias Hutchins 726.19 Shoulder Isaac Desai M.D.,FACP Disorders Other [address] Spec 726.19 Shoulder Disorders Other Spec Office Visit 07/16/2014 2:00p [facility] Internal Dada Be, 338.21 Chronic Pain Due Medicine - ICU STAFF NURSE To Trauma [address] Office Visit 07/16/2014 2:00p [facility] Internal Dada Be, 780.52 Insomnia Medicine - ICU STAFF NURSE Unspecified [address] 465.9 URI Upper Respiratory Infections Acute Unspec Sites Office Visit 08/06/2013 2:40p [facility] Internal Ermias Hutchins 462 Pharyngitis Acute Isaac Desai M.D.,FACP [place] 707.09 Pressure Ulcer, Other Site Office Visit 04/11/2013 4:00p [facility] Internal Ermias Hutchins 466.0 Bronchitis Acute Isaac Desai M.D.,FACP [place] Office Visit 04/11/2013 3:40p [facility] Nydia Hutchins 719.41 Pain Joint Isaac Desai M.D.,FACP Shoulder Region [place] Office Visit 12/13/2012 10:00a [facility] Nydia Hutchins 726.19 Shoulder Isaac Desai M.D.,FACP Disorders Other [place] Spec Office Visit 09/12/2012 12:37p [facility] Nydia Hutchins 719.41 Pain Joint Isaac Desai M.D.,FACP Shoulder Region [place] 723.1 Cervicalgia Office Visit 07/03/2012 2:40p [facility] Nydia Hutchins 346.10 Migraine Common Isaac Desai M.D.,FACP W/O Intractable [place] W/O Status Migrainosus 733.09 Osteoporosis Other Office Visit 06/04/2012 [facility] Internal Ermias Hutchins 726.19 Shoulder Disorders 10:30a Isaac Desai M.D.,[place] Other Spec [place] Office Visit 03/27/2012 [facility] Internal Ermias Hutchins 726.19 Shoulder Disorders 4:20p Isaac Desai M.D.,AMAD[place] Other Spec [place] Office Visit 02/19/2012 [facility] [place] Giles, 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 Unspec [place] Office Visit 07/18/2011 10:30a Rehab Therapist Internal Ermias Hutchins 726.19 Shoulder Isaac Desai M.D.,FACP Disorders Other [place] Spec Office Visit 05/19/2011 4:20p Rehab Therapist Internal Ermias Hutchins 726.19 Shoulder Isaac Desai M.D.,FACP Disorders Other [place] Spec Office Visit 03/15/2011 4:40p DO Not Use Rehab Therapist Ermias Hutchins 466.0 Bronchitis Acute AT Kevin Desai M.D.,FACP Office Visit 01/26/2011 4:20p DO Not Use Rehab Therapist Ermias Hutchins 719.41 Pain Joint AT [facility] 723.1 Cervicalgia Office Visit 01/26/2011 4:00p DO Not Use Rehab Therapist Ermias Hutchins 780.52 Insomnia AT Kevin Desai M.D.,FACP Unspecified 346.10 Migraine Common W/O Intractable W/O Status Migrainosus Office Visit 10/26/2010 11:20a DO Not Use Rehab Therapist Ermias Hutchins 719.41 Pain Joint AT Kevin Desai M.D.,FACP Shoulder Region Office Visit 07/26/2010 11:20a DO Not Use Rehab Therapist Ermias Hutchins 346.10 Migraine Common AT Kevin Desai M.D.,FACP W/O Intractable W/O Status Migrainosus 401.1 Hypertension Benign Office Visit 07/26/2010 11:00a DO Not Use Rehab Therapist AT Ermias Desai, 724.2 Lumbago Kevin Cabrera,FACP 724.9 Back Disorders Other Unspec Office Visit 05/24/2010 4:00p DO Not Use Rehab Therapist Ermias Hutchins 461.9 Sinusitis Acute AT Kevin Desai M.D.,FACP Unspec Office Visit 04/06/2010 1:00p DO Not Use Rehab Therapist Ermias Hutchins 726.19 Shoulder AT Kevin Desai M.D.,FACP Disorders Other Spec Office Visit 12/30/2009 4:00p DO Not Use Rehab Therapist Ermias Hutchins 346.10 Migraine Common AT Kevin Desai M.D.,FACP W/O Intractable W/O Status Migrainosus 726.19 Shoulder Disorders Other Spec 780.52 Insomnia Unspecified 724.9 Back Disorders Other Unspec 401.1 Hypertension Benign Office Visit 12/30/2009 3:40p DO Not Use Rehab Therapist Ermias Hutchins 346.10 Migraine Common AT [facility] Rick Desai,FACP W/O Intractable W/O Status Migrainosus 726.19 Shoulder Disorders Other Spec 780.52 Insomnia Unspecified 724.9 Back Disorders Other Unspec 401.1 Hypertension Benign Office Visit 09/28/2009 3:40p DO Not Use Rehab Therapist Ermias Hutchins 847.1 Sprains & AT [facility] Rick Desai,FACP Strains Thoracic 728.85 Spasm Muscle Office Visit 08/18/2009 3:00p DO Not Use Rehab Therapist AT Shashi Marrero, 724.2 Lumbago [facility] Rick 724.2 Lumbago 723.1 Cervicalgia 723.1 Cervicalgia 726.19 Shoulder Disorders Other Spec 726.19 Shoulder Disorders Other Spec 724.9 Back Disorders Other Unspec 724.9 Back Disorders Other Unspec Office Visit 08/16/2009 4:00p DO Not Use Rehab Therapist Elida, 346.90 Migraine Unspec AT [facility] Rick Danielle W/O Intractable W/O Status Migrainosus 272.0 Hypercholesterolemia Pure Office Visit 07/15/2009 10:00a DO Not Use Rehab Therapist Elida, 346.90 Migraine Unspec AT [facility] Rick Danielle W/O Intractable W/O Status Migrainosus 724.5 Backache Unspec 239.3 Neoplasm Unspecified Breast 309.81 Posttraumatic Stress Disorder V11.2 History Personal Neurosis 312.4 Disturbance Of Conduct & Emotions Mixed Plan of Treatment Future Appointment(s):07/10/2018 4:20 pm - Korina Meadows MD at [facility] Internal Medicine - [address]09/19/2018 3:00 pm - Travon Rojas M.D. at [facility]05/28/2018 - Korina Meadows MDI10 Essential (primary) hypertensionNew Medication:Propranolol HCL 20 mg - 1 by mouth twice a dayFollow up:6 npnedB16.41 Drug-induced headache, not elsewhere classified, oekuosmfkjdB75.009 Migraine without aura, not intractable, without status migra
[2018-07-01 10:18] VITALS: BP 157/79
--- NOTE | 2018-07-01 10:26 | UC ---
Headache HPI - HPI Summary HPI Summary: 62 c/o female presents to the urgent care c/o severe migraine NICK since last night. Pt reports Hx of Migraine NICK and she took Imitrex PO around 0300AM and then Fioricet PO around 0400AM w/o any improvement. Pain is 9/10 associated w/ photophobia. She came last month and they gave her IM inj of Toradol which resolved her NICK. She request this IM inj since today she is taking care of her grand child and needs an immediate relief. She has an appt w/ her PCP next week. Pt states Migraine gets worse w/ the rain since her sinus get very congested. Pt denies dizziness, SOB, ear pain, SOB, chest pain, abdominal pain, neck pain, N/V/d. - History Of Current Complaint Chief Complaint: UCHeadache Stated Complaint: severe headache Time Seen by Provider: 07/01/18 10:23 Hx Obtained From: Patient Hx Last Menstrual Period: Hysterectomy ?: No Onset/Duration: Gradual Onset, Lasting Days - 1 day, Still Present, Worse Since - this morning Onset Of Symptoms: Gradual Initially Headache Was: Severe - 9/10 Pain Intensity: 9 Pain Scale Used: 0-10 Numeric Timing: Constant Character: Migraine - Hx of Migraine NICK took Imitrex and Fioricet w/o any improvement Location of Headache: Temporal Aggravating Factor(s): Bright Lights Allevating Factor(s): Rest, Medication Associated Signs And Symptoms: Positive: Nausea - mild this morning, Sinus Pressure. Negative: Dizziness, Vomiting, Fever, Neck Pain, Neck Stiffness, Decreased LOC, Visual Changes Related History: Similar Episode/DX As: - Migraine NICK - Risk Factors SAH Risk Factors: Negative Meningitis Risk Factors: Negative SDH Risk Factors: Negative Temporal Arteritis Risk Factors: Negative - Allergies/Home Medications Allergies/Adverse Reactions: Allergies Allergy/AdvReac Type Severity Reaction Status Date / Time Adhesive Tape [Paper Tape] Allergy Unknown Unknown Verified 06/01/18 07:48 Reaction Details adhesive tape Allergy Unknown Verified 06/01/18 07:48 Reaction Details bee venom protein (honey bee) Allergy Unknown Verified 06/01/18 07:48 Reaction Details buprenorphine Allergy Rash Verified 06/01/18 07:48 Egg Derived Allergy Rash Verified 06/01/18 07:48 latex Allergy Blisters Verified 06/01/18 07:48 nalbuphine [From Nubain] Allergy Unknown Verified 06/01/18 07:48 Reaction Details nitrofurantoin Allergy GI Upset Verified 06/01/18 07:48 [From Macrobid] Sulfa (Sulfonamide Allergy Unknown Verified 06/01/18 07:48 Antibiotics) Reaction Details Tetanus Vaccines and Toxoid Allergy GI Upset Verified 06/01/18 07:48 Tetracyclines Allergy Unknown Verified 06/01/18 07:48 Reaction Details cefaclor [From Ceclor] AdvReac GI Upset Verified 06/01/18 07:48 cephalexin [From Keflex] AdvReac GI Upset Verified 06/01/18 07:48 ciprofloxacin [From Cipro] AdvReac GI Upset Verified 06/01/18 07:48 ondansetron AdvReac Nausea And Verified 06/01/18 07:48 Vomiting BANDAIDS Allergy Unknown Unknown Uncoded 06/01/18 07:48 Reaction Details BEE STINGS Allergy Unknown Unknown Uncoded 06/01/18 07:48 Reaction Details GANDOCIN Allergy Unknown Unknown Uncoded 06/01/18 07:48 Reaction Details ADHESIVES Allergy Unknown Uncoded 06/01/18 07:48 Reaction Details Home Medications: Home Medications Bimatoprost 0.01% OPHTH (NF) [Lumigan 0.01% OPHTH (NF)] 1 drop LEFT EYE QPM [History Confirmed 07/01/18] Calcium Carbonate/Vitamin D3 [Calcium 500 mg-Vit D3 600 Unit] 1 each PO DAILY [History Confirmed 07/01/18] Cholecalciferol (Vitamin D3) [Natural Vitamin D-3] 5,000 unit PO DAILY 07/01/18 [History Confirmed 07/01/18] Phenazopyridine TAB* [Pyridium 100 mg TAB*] 100 mg PO TID PRN 07/01/18 [History Confirmed 07/01/18] Tafluprost/Pf [Zioptan 0.0015% Eye Drops] 1 each BOTH EYES BEDTIME 07/01/18 [ History Confirmed 07/01/18] PMH/Surg Hx/FS Hx/Imm Hx Previously Healthy: Yes Cardiovascular History: Hypertension Respiratory History: Bronchitis Other Respiratory History: chronic sinusitis Neurological History: Migraine Psychological History: Anxiety Other History Of: Negative For: HIV, Hepatitis B, Hepatitis C, Anticoagulant Therapy - Surgical History Surgical History: Yes Surgery Procedure, Year, and Place: APPENDECTOMY-EXPLORATORY; [facility] - ; 2004 BREAST-LUMPECTOMY Rt; STAPH INFECTION W/ BREAST;TONSILECTOMY ( CHILD) , PARTIAL hysterectomy - Family History Known Family History: Positive: Cardiac Disease, Hypertension Family History: NON CONTRIBUTORY - Social History Occupation: Retired Lives: With Family Alcohol Use: None Substance Use Type: None Smoking Status (MU): Never Smoked Tobacco Have You Smoked in the Last Year: No - Immunization History Most Recent Influenza Vaccination: allergy Review of Systems All Other Systems Reviewed And Are Negative: Yes Constitutional: Positive: Negative Skin: Positive: Negative Eyes: Positive: Negative ENT: Positive: Negative Respiratory: Positive: Negative Cardiovascular: Positive: Negative Gastrointestinal: Positive: Nausea - mild which resolved now Genitourinary: Positive: Negative Motor: Positive: Negative Neurovascular: Positive: Negative Musculoskeletal: Positive: Negative Neurological: Positive: Headache - Migraine Psychological: Positive: Negative Is Patient Immunocompromised?: No Physical Exam - Summary Physical Exam Summary: Vital Signs Reviewed: Yes General: well developed, well nourished female sitting in the examining w/o any apparent distress. Eyes: Positive: Conjunctiva Clear - -Eyes: sclera and conjunctiva clear, corneas grossly clear, PEERLA, EOMI, no nystagmus, no ptosis,no photophobia, normal fundoscopic exam, normal visual flynn,, Other: - -Head:scalp atraumatic , NT, no trigger points ENT: Positive: Normal ENT inspection, Hearing grossly normal, Pharynx normal, TMs normal - B/L external ear canals clear, Other: - No TMJ tenderness. Negative: Nasal congestion, Nasal drainage, Tonsillar swelling, Tonsillar exudate Dental Exam: Normal Neck: Positive: Supple, Nontender, No Lymphadenopathy Respiratory: Positive: Chest non-tender, Lungs clear, Normal breath sounds, No respiratory distress Cardiovascular: Positive: RRR, No Murmur, Pulses Normal, Brisk Capillary Refill Abdomen Description: Positive: Nontender, No Organomegaly, Soft. Negative: CVA Tenderness (R), CVA Tenderness (L) Bowel Sounds: Positive: Present Musculoskeletal: Positive: Strength Intact, ROM Intact, No Edema Neurological: Positive: Alert - A&OX3, CNII-XII WNL, speech, memory and expression WNL,, Muscle Tone Normal - Muscle strength 5/5 in both upper and lower extremities. Normal gait, negative Romberg test and good coordination finger to nose, heel to pinto WNL, sensation intact. Reflexes WNL Psychological Exam: Normal Skin: Positive: warm and dry , no rashes or petechiae observed Triage Information Reviewed: Yes Vital Signs: Initial Vital Signs Temp 99 F 07/01/18 10:13 Pulse 60 07/01/18 10:13 Resp 16 07/01/18 10:13 BP 157/79 07/01/18 10:13 Pulse Ox 100 07/01/18 10:13 Headache Course/Dx - Course Course Of Treatment: 62 c/o female presents to the urgent care c/o severe migraine NICK since last night. Pt reports Hx of Migraine NICK and she took Imitrex PO around 0300AM and then Fioricet PO around 0400AM w/o any improvement. Pain is 9/10 associated w/ photophobia. She came last month and they gave her IM inj of Toradol which resolved her NICK. She request this IM inj since today she is taking care of her grand child and needs an immediate relief. She has an appt w/ her PCP next week. Pt states Migraine gets worse w/ the rain since her sinus get very congested. Pt denies dizziness, SOB, ear pain, SOB, chest pain, abdominal pain, neck pain, N/V/d. Hx obtained. Pt explained the risks of having Toradol IM inj, and the importance to f/u w/ her PCP for further management on her Migraine HAs. Pt still requesting IM inj. PE: WNL. Pt given toradol IM inj to alleviate symptoms. Pt tolerated well medication and she didn't want to wait until NICK resolved since she wanted to go home with her grand son as soon as possible. Advised to take only Tylenol PO if NICK done't resolve completely. Strongly advised to schedule an appt w/her PCP for further management and Tx of Migraine. Also advised to go immediately to the ER if symptoms worsen for further management.Pt's BP is elevated today advised to decrease salt in diet, monitor BP and f/u with PCP for further management. Pt understood and agreed and left the clinic hemodynamically stable, A&OX3 - Differential Dx/Diagnosis Differential Diagnosis/HQI/PQRI: Migraine, Sinus Headache, Temporal Arteritis, Tension Headache, Viral Syndrome Provider Diagnosis: Migraine headache with aura, Uncontrolled hypertension Discharge - Sign-Out/Discharge Documenting (check all that apply): Patient Departure - d/c home All imaging exams completed and their final reports reviewed: No Studies - Discharge Plan Condition: Stable Disposition: HOME Patient Education Materials: Migraine Headache (ED) Referrals: Korina Meadows MD [Primary Care Provider] - 2 Days Additional Instructions: 1-You were given a Toradol IM inj today. Please do not take any other NSAID today. Only Tylenol PO if if Head persists. Please go immediately home to rest since you didn't want to wait here. 2-Please f/y w/ you rPCP in 2-3 days if not improvement of your Headache for further management. Rest and avoid triggers. 3-If you develops severe headache with dizziness, visual disturbances or any neurological deficit go immediately to the ER for further treatment. 4- Your BP is elevated today. please decrease salt in your diet, monitor BP and if it continues to be elevated please f/u with your PCP for further management. - Billing Disposition and Condition Condition: STABLE Disposition: Home
[2018-07-01] MEDS ORDERED: Ketorolac INJ* 60 MG/2 ML VIAL IM ONE (10:49)
== END 2018-07-01 11:21 | disposition home or self-care (01) ==
LOC: UCEAST 10:09
DX: G43.109 Migraine with aura, not intractable, without status migrainosus (principal); I10 Essential (primary) hypertension; R51 Headache; Z91.09 Other allergy status, other than to drugs and biological substances; Z91.030 Bee allergy status; Z88.1 Allergy status to other antibiotic agents; Z88.2 Allergy status to sulfonamides; Z91.040 Latex allergy status; Z91.011 Allergy to milk products; Z88.7 Allergy status to serum and vaccine; Z88.5 Allergy status to narcotic agent
CPT/HCPCS: 99211; G0463; J1885

== ENCOUNTER 2018-10-05 10:17 | Emergency (ER) | payer OTHER, MEDICARE ==
--- OUTSIDE RECORDS SUMMARY | 2018-10-05 10:22 | XMS REPORT | Continuity of Care Document ---
:1955 External Reference #:[id number] Author Name Isabella Cintron Care Team Providers Name Role Phone Korina Meadows M.D. Primary Care Physician Unavailable Payers Date Identification Numbers Payment Provider Subscriber Effective: 2018 Policy Number: [id number] Medicare Dutch Linton PayID: [id number] [address] [place] [address] Effective: 2016 Policy Number: [id number] BS Facets Dutch Linton PayID: [id number] [address] [address] [place] [address] Policy Number: [id number] [facility] Dutch Linton PayID: [id number] [address] [place] [address] Effective: 2012 Policy Number: [id number] [employer]ets Dutch Linton Expires: 2016 PayID: [id number] [address] [address] [place] [address] Onset: 1997 Policy Number: [id number] TST Dutch Linton PayID: [id number] [address] [place] [address] Effective: 2011 Policy Number: [id number] BS Of BRODIE Linton Expires: 2011 PayID: [id number] [address] [address] [place] Santiago [address] Expires: 2009 Policy Number: [id number] BS Of BRODIE Linton PayID: [id number] [address] [address] [place] Santiago [address] Controverted Dutch Linton Onset: 1997 Group Name: Workers[employer] Dutch Linton Compensation [address] [place] [address] Advance Directives Type Date Description Status Comment Other Directive 01/09/2018 Health Care Proxy Current and Verified Problems Active Problems Provider Date Thoracic back sprain Ermias Desai M.D.,FACP Onset: 09/28/2009 Spasm Ermias Desai M.D.,FACP Onset: 09/28/2009 Migraine without aura, not refractory Ermias Desai M.D.,FACP Onset: Personal history of primary malignant Ermias Desai M.D.,FACP Onset: neoplasm of breast Osteoporosis Ermias Desai M.D.,FACP Onset: 07/03/2012 Vitamin D deficiency Ermias Desai M.D.,FACP Onset: 07/29/2015 Family History Date Family Member(s) Observation Comments [...] Patient has never smoked Smoking Status Reviewed: 09/23/18 Patient has never smoked Exercise Type/Frequency Exercises rarely Currently Active Patient is currently not sexually active Allergies, Adverse Reactions, Alerts Active Allergies Reaction Severity Comments Date Ondansetron nausea/vomiting 07/15/2009 Tetanus Toxoids 07/15/2009 Keflex 07/15/2009 Cipro 07/15/2009 Ceclor 07/15/2009 Nitrofurantoin diarrhea/vomiting 09/28/2009 Eggs or Egg-derived rash 04/06/2010 Products Latex blisters 10/04/2011 Sulfa Antibiotics 12/02/2012 Tussionex Pennkinetic 12/06/2012 Extended Release Tetracycline 12/06/2012 Gandocin 12/06/2012 Bee Sting 12/06/2012 Bandaids And Paper Tape 12/06/2012 Nubain unsure but remembers 12/13/2012 from past Buprenorphine rash from [place] 12/13/2012 Patch Inactive Allergies Prednisone nausea 07/15/2009 Medications Active Medications SIG Qnty Indications Ordering Date Provider Butalbital/Aspirin/ 1-2 every 8 hours as 75caps G43.009 Ladi Rodriguez, Caffeine/Codeine needed for severe M.D. migraine. must last 89-354-19-30mg 28 days Capsules Propranolol HCL 1 by mouth twice a 60tabs I10 Korina Meadows MD 05/28/2018 day 20mg Tablets Calcium 500 + D3 2 tabs by mouth 90tabs Ermias Hutchins 04/26/2018 every day Rick Desai,FACP [id number] Tablets Fish Oil 1 tab by mouth every 100caps Ermias Hutchins 04/26/2018 1000mg day Rick Desai,FACP Capsules Ketorolac 2ml intramuscular x 4ml G43.009 Korina Meadows MD 04/23/2018 Tromethamine 1, as needed migraine 60mg/2ML Solution Cetirizine HCL 1 by mouth every day 30tabs J30.9 Korina Meadows MD 2017 10mg Tablets Azelastine HCL 2 sprays in each 30ml J30.9 Korina Meadows MD 03/26/2018 (Nasal) nostril 2x/day 137mcg/[place] Solution Vitamin D by mouth everyday 90tabs E55.9 Geoffreyofitara Coronado, 01/09/2018 1000Unit TANNERY GUMMER Tablets Vitamin D3 Ultra 1 by mouth every day 90caps Portillo Coronado, 08/13/2017 Strength TANNERY GUMMER 5000Unit Capsules Ambien 1 tab by mouth at 30tabs G47.00 Ladi Rodriguez, 05/04/2017 10mg Tablets bedtime as needed M.D. Baclofen take 1/2 tab by 45tabs Ermias Hutchins 12/08/2016 10mg mouth three times Rick Desai,FACP Tablets daily Lidoderm apply topically 30units Ermias Hutchins 09/18/2016 5% Patches every day for 12 Rick Desai,FACP hours to RT shoulder, work-related injury Latanoprost 1 drop in each eye Other Ordering 07/14/2015 0.005% at bedtime Provider Solution Freestyle Lite check fingerstick 1units Ermias Hutchins 07/28/2013 Blood Glucose daily hypoglycemic Rick Desai,FACP Monitoring System Device Proair HFA 2 puffs by mouth 8.5units J45.909 Portillo Coronado, 09/10/2012 four times a day as TANNERY GUMMER 108(90Base) mcg/Act needed Aerosol Freestyle Lite Test test BS up to three 100units Ermias Hutchins 11/24/2011 Strips times daily, last Rick Desai,FACP Strips visit: 05/04/17 Freestyle Lancets test BS up to three 100units Ermias Hutchins 11/24/2011 times daily, last Rick Desai,FACP Misc visit: 05/04/17 Zioptan one drop in each eye Unknown 0.0015% once daily in Solution evening Ventolin HFA 2 puffs by mouth 8gm Korina Meadows MD four times a day as 108(90Base) mcg/Act needed (rx'd by Aerosol urgent care) Imitrex every 2 hours as 18tabs G43.909 Ladi Rodriguez, 50mg needed mdd4 mdd 4 M.D. Tablets G43.009 Timolol Maleate instill one drop Unknown 0.5% into both eyes twice Solution daily (Timoptic) Excedrin Migraine 1 tab twice a day as G43.009 Unknown needed for migraine [id number] Tablets Lumigan one drop in left eye Unknown 0.01% Solution daily Acetaminophen-Codeine 2 tab every 4 hours Unknown #4 as needed pain 300-60mg Tablets (work-related) Carisoprodol 1 tablets by mouth 120tabs M62.40 Geoffreyofia Cliff, 350mg four times a day as TANNERY GUMMER Tablets needed History Medications Nitrofurantoin 1 by mouth twice a 14caps Ladi 05/01/2018 - Macrocrystal day Rick Rodriguez 09/22/2018 100mg Capsules Prednisone 3 tabs once a day 20tabs J98.01 Korina Meadows, 03/11/2018 - 20mg Tablets x 3 days, 2 tabs 03/26/2018 once a day for 3 days, 1 tab once a day for three days, half tab once a day for 3 days Ibandronate Sodium take 1 tablet by 3tabs M81.0 Portillo Coronado, 01/09/2018 - mouth once a month TANNERY GUMMER 01/14/2018 150mg Tablets Vitamin D by mouth everyday 90tabs E55.9 Geoffreyofitara Coronado, 05/04/2017 - 1000Unit TANNERY GUMMER 08/13/2017 Tablets Vitamin D by mouth everyday 30tabs Geoffreyjasstara Coronado, 02/23/2017 - 1000Unit TANNERY GUMMER 08/13/2017 Tablets Ibuprofen 1 tab by mouth 60tabs M54.5 Portillo Coronado, 10/25/2016 - 800mg Tablets three times a day TANNERY GUMMER 12/08/2016 with food as needed Meloxicam 1 by mouth twice a 60tabs M25.511 Alondratara Coronado, 10/05/2016 - 7.5mg Tablets day as needed [facility] 04/23/2018 Vitamin D3 Maximum 1 by mouth every 90caps Portillo Coronado, 09/11/2016 - Strength day for 3 month, [facility] 04/23/2018 5000Unit repeat labs when Capsules completed Calcium 1000 + D take 1 tab po 90tabs M81.0 Alondratara Estevesk, 09/06/2016 - daily [facility] 04/23/2018 [id number] Tablets Ra Fish Oil take 1 capsule by 90caps Portillo Coronado, 09/06/2016 - 1000mg mouth once daily [facility] 04/23/2018 Capsules Amoxicillin take one tablet by 20tabs J45.909 Dada Be, 01/05/2016 - 875mg mouth twice a day [facility]LE [facility]FER 01/15/2016 Tablets x's 10 days States she has taken amoxicillin without difficulty Keflex not a true aller Tessalon [place] 1-2 capsule by 30caps J45.909 Ermias Hutchins 01/05/2016 - 100mg mouth three times [place], 01/15/2016 Capsules a day as needed Rick,FACP Atrovent HFA 1-2 inhalation q6 12.900gm J45.909 Ermias Hutchins 01/05/2016 - 17mcg/Act hours as needed [place], 01/15/2016 Aerosol Rick,FACP Prednisone 2 tablets by mouth 10tabs J45.909 Dada Be, 01/05/2016 - 20mg Tablets daily x's 5 days TILE ROOFER 01/10/2016 in the morning Ergocalciferol by mouth q1wk 12caps E55.9 Ermias Hutchins 07/29/2015 - Giselle, 09/11/2016 [id number] Capsules Rick,[facility] M81.0 Ibandronate Sodium take 1 tablet by 3tabs M81.0 Ermias Hutchins 07/23/2015 - 150mg mouth once a Rick Desai,[facility] 09/06/2016 Tablets month Medrol (Robbie) take as 1tabs R05 Dada Be, 03/11/2015 - 4mg Tablets prescribed [facility]OOFER 03/16/2015 Benzonatate 1-2 capsule 15caps R05 Dada Be, 03/02/2015 - 100mg three times a [facility]LE ROOFER 01/05/2016 Capsules day take as needed. Azithromycin 2 tabs by mouth 6tabs 461.1 Dada Be, 11/17/2014 - 250mg on day 1; 1 tab [facility]OOFER 11/22/2014 Tablets by mouth every day on days 2-5 Amoxicillin 2 tabs by mouth 40tabs 462 Ermias Hutchins 08/06/2013 - 500mg Tablets twice a day for Rick Desai,[facility] 07/16/2014 10 days Prednisone 5 tabs qd for 2 30tabs Ermias Hutchins 04/11/2013 - 10mg Tablets days, then Rick Desai,[facility] 08/06/2013 reduce by 1 tab every 2 days until finished Sulfamethoxazole/Trime po bid 10tabs Ermias Hutchins 12/02/2012 - thoprim DS Rick Desai,[facility] 12/02/2012 800-160mg Tablets Azithromycin 2 qd for 1 day, 6tabs 726.19 Ermias Hutchins 09/12/2012 - 250mg then 1 qd Rick Desai,[facility] 09/17/2012 Tablets Tessalon tid prn po 30caps Ermias Hutchins 03/14/2012 - 200mg Capsules Rick Desai,[facility] 06/04/2012 Percocet 1/2 to 1 po q8h 40tabs [place] Giles, 02/19/2012 - 5-325mg Tablets prn pain knee M.D. 03/27/2012 [place] take 1 tab po 15tabs Dirtimo Giles, 01/10/2012 - 5-325mg Tablets tid prn pain M.D. 03/14/2012 Calcium 500+D High by mouth twice a 733.02 Ermias Hutchins 12/08/2011 - Potency day [facility] Des[facility] 04/11/2013 [id number] Tablets Evista 1 po qd 30tabs 733.02 Ermias Hutchins 12/08/2011 - 60mg Tablets Rick Desai,[facility] 04/11/2013 Zostavax 1 dose s/c 1units Ermias Hutchins 09/13/2011 - 43635Vfa/0.65ML Rick Desai,[facility] 10/11/2011 Solution Rec Azithromycin 2 tabs po qd x1 6tabs 461.9 Ermias Hutchins 07/20/2011 - 250mg day, 1 tab po qd Rick Desai,[facility] 10/04/2011 Tablets x 4 days Nasonex 2 sprays in each 17g 461.9 Ermias Hutchins 07/20/2011 - 50mcg/Act nostril once Rick Desai,[facility] 07/20/2011 Suspension daily Nasal Saline 2 sprays in each 1ml 461.9 Ermias Hutchins 07/20/2011 - 0.65% nostril 5 times Rick Desai,[facility] 07/16/2014 Solution a day Fluticasone Propionate 2 spray in each 1bottle 461.9 Ermias Hutchins 2011 - nostril in am Rick Des[facility] 10/04/2011 50mcg/Act Suspension Butrans topical q week 4units 726.19 Ermias Hutchins 07/18/2011 - 5mcg/HR Patches Rick Desai,[facility] 10/04/2011 Weekly Ventolin HFA 2 puffs po qid 1units Ermias Hutchins 03/15/2011 - 108(90Base) prn Rick Desai,[facility] 09/10/2012 mcg/ac Aerosol Verapamil HCL ER 1 po qd 30caps 346.90 Ermias Hutchins 07/26/2010 - 120mg Rick Desai,FACP 12/13/2012 Caps ER 24HR Tylenol/Codeine #4 2 tablets by 240tabs Joshua Samuels NP 06/14/2010 - mouth every four 06/19/2014 300-60mg Tablets hours as needed per pt. request to send early to be filled but hold until due date Fluticasone Propionate 1 spray each 1bottle Ermias Hutchins 02/15/2010 - nostril in am Rick Desai,FACP 07/18/2011 50mcg/Act Suspension prn Verapamil HCL CR 1 tab po daily 30caps 346.90 Seng 01/14/2010 - 100mg Rick Lopez 07/26/2010 Caps ER 24HR Verapamil HCL ER 1 po qd 30caps 346.90 Ermias Hutchins 12/30/2009 - 180mg Rick Desai,FACP 01/14/2010 Caps ER 24HR Fiorinal/Codeine #3 1-2 four times a 75caps G43.009 Korina Meadows MD 2009 - day as needed, 05/29/2018 39-810-20-30mg maximum 3 days Capsules per week Simvastatin 1 tablet po qhs 346.90 Ermias Hutchins 09/28/2009 - 10mg Tablets Rick Desai,FACP 09/28/2009 Fexofenadine HCL take one tablet 60tabs J45.909 Ermias Hutchins 08/16/2009 - 60mg by mouth twice a Rick Desai,FACP 05/04/2017 Tablets day as needed Zocor 1 tablet po 30tabs 346.90 Elida, 08/16/2009 - 10mg Tablets Rick Danielle 09/28/2009 dialy Verapamil HCL CR 1 tab po daily 30caps 346.90 [place], 07/15/2009 - 100mg Rick Danielle 12/30/2009 Caps ER 24HR Amoxicillin/Clavulanat Unknown - e Potassium 05/01/2018 875-125mg Tablets Phenazopyridine HCL one po tid prn 30tabs Korina Meadows MD - 100mg dysuria 09/22/2018 Tablets Benzonatate take one or two Unknown - 100mg capsules every 8 04/23/2018 Capsules hours as needed for cough. (rx'd by urgent care) Azithromycin two tabs day Unknown - 250mg one, one daily 03/26/2018 Tablets till gone (rx' by urgent care) Prednisone one tab daily Unknown - 20mg Tablets for 4 days (rx'd 03/26/2018 by urgent care) Benzonatate take one or two Unknown - 100mg capsules every 8 03/02/2015 Capsules hours as needed for cough. Doxycycline Hyclate one tablet twice Unknown - 100mg daily for 10 03/11/2015 Capsules days. Benzonatate one by mouth 30caps Unknown - 200mg three times 07/16/2014 Capsules daily as needed for cough Prednisone take 3 po qam x 20tabs Unknown - 20mg Tablets 4 days 04/11/2013 Doxycycline Hyclate bid po 20caps Unknown - 100mg 08/06/2013 Capsules Proair HFA 2 puffs po q4h 1units Unknown - 108(90Base) prn 08/26/2014 mcg/Act Aerosol Zolpidem Tartrate 1 tab by mouth 30tabs G47.00 Zsofia Cliff, - 10mg every night at [facility] 04/23/2018 Tablets bedtime as needed Jgzdltligy-Lfrt-Qpmeem 2 tablets po qid 240caps Ermias Hutchins - ne prn Rick Desai,FACP 11/22/2009 50-325-40mg Capsules Francia-D 12 Hour 1 po bid as 60tabs J45.909 Ermias Hutchins - needed Rick Desai,[facility] 10/24/2016 60-120mg Tablets ER 12HR Proair HFA prn only in the Unknown - winter 03/15/2011 Fexofenadine HCL take one tablet 60tabs Unknown - 60mg by mouth twice a 08/16/2009 Tablets day as needed Ekvgcwgjhm-Ryjg-Ilxyqv 2 tablets po qid 120caps Elida, - ne talishan Rick Danielle 08/16/2009 50-325-40mg Capsules Tylenol With Codeine 2 tablets po 40tabs Ermias Hutchins - #4 every four hours Rick Desai,FACP 06/14/2010 300-60mg Tablets as needed mdd=8 May give emergency supply Lidoderm Patch 1-2 patches qd 1Box Ermias Hutchins - 5% Patches Rick Desai,FACP 08/26/2014 on for 12h off for 12h prn Medications Administered in Office Medication SIG Qnty Indications Ordering Provider Date Toradol Injection 15MG Nurse Visit A 09/19/2018 Injection Toradol Injection 15MG Nurse Visit A 08/07/2018 Injection No Injection Nurse Visit A 07/23/2018 Injection Shingrix pharmacy administered Unknown 04/26/2018 Injection Immunizations CPT Code Status Date Vaccine Lot # [id number] Given 01/14/2018 Zoster (Shingles) Vaccine (HZV), Recombinant, Subunit, Adjuvanted 22188 Given 11/02/2011 Zoster (Zostavax) 30324 Refused 01/26/2011 Flu Mist Vaccine, Live For Intranasal Use Vital Signs Date Vital Result Comment 09/23/2018 10:27am Height 62.5 inches 5'2.50" Weight 136.50 lb Heart Rate 67 /min BP Systolic 136 mmHg BP Diastolic 80 mmHg Body Temperature 99.0 F O2 % BldC Oximetry 98 % BMI (Body Mass Index) 24.6 kg/m2 09/19/2018 2:45pm Height 62.5 inches 5'2.50" Weight 134.00 lb Heart Rate 58 /min BP Systolic 120 mmHg BP Diastolic 88 mmHg BMI (Body Mass Index) 24.1 kg/m2 05/28/2018 4:48pm Height 62.5 inches 5'2.50" Weight [...] H/L Range Note Urine Culture And 04/24/2018 [facility] Urine SEE RESULT 1 , [address] [place] [address] [phone] Poc Urinalysis 04/24/2018 [facility] Poc Glucose, Negative Negative [address] [place] [address] [phone] Poc Bilirubin, Urine Negative Negative Poc Ketone, Urine Negative Negative Poc Specific [place], Urine 1.010 N 1.010-1.030 Poc Blood, Urine Trace-intact Abnormal Negative Poc pH, Urine 6.0 N 5-9 Poc Protein, Urine Negative Negative Poc Urobilinogen, Urine 0.2 Negative Poc Nitrite, Urine Negative Negative Poc Leukocytes, Urine 1+ Abnormal Negative Poc Color, Urine Yellow Poc Clarity, Urine Clear 3 Order 03/11/2018 [facility] Nebulizer <pending> [address] [place] [address] [phone] Laboratory test 01/09/2018 [facility] Cytology SEE RESULT [address] [place] [address] [phone] Lipid Profile 07/26/2017 [facility] Triglycerides 154 mg/dL 6 (Trig/Chol/HDL) [address] [place] [address] [phone] Cholesterol 197 mg/dL 7 HDL Cholesterol 47.1 mg/dL 8 LDL Cholesterol 119 mg/dL 9 Comp Metabolic Panel 07/26/2017 [facility] Sodium 139 mmol/L N 139-[address] [place] [address] [phone] Potassium 4.3 mmol/L N 3.5-5.0 Chloride 103 [...] Egfr 110.5 >60 10 Laboratory test 07/26/2017 [facility] TSH (Thyroid 1.32 mcIU/mL N 0.34-5.60 [address] Stim Horm) [place] [address] [phone] Vitamin D Total 25(Oh) 17.1 ng/mL Low 20-50 12 Hemoglobin A1c (Glyco HGB) 5.5 % N 4.0-5.6 13 Laboratory test 02/22/2017 [facility] Vitamin D 23.8 ng/mL N 20-[address] Total 25(Oh) [place] [address] [phone] Laboratory test 09/06/2016 [facility] Vitamin D 21.9 ng/mL Low 30-[address] Total 25(Oh) [place] [address] [phone] CBC Auto Diff 09/06/2016 [facility] White Blood 7.3 N 3.5- 10.[address] Count 10^3/[place] [address] [phone] Red Blood Count 4.34 10^6/uL N 4.0-5.4 [...] % 0.1 N Basic Metabolic Panel 07/17/2016 [facility] Sodium 135 mmol/L N 133-[address] [place] [address] [phone] Potassium 4.3 mmol/L N 3.5-5.0 Chloride 102 mmol/L N 101-111 Co2 Carbon Dioxide 27 mmol/L N 22-32 Anion Gap 6 mmol/L N 2-11 Glucose 129 mg/dL High 70-100 Blood Urea Nitrogen 10 mg/dL N 6-24 Creatinine 0.67 mg/dL N 0.51-0.95 BUN/Creatinine Ratio 14.9 N 8-20 Calcium 9.6 mg/dL N 8.6-10.3 Egfr Non- 89.2 N >60 Egfr 114.7 N >60 14 Lipid Profile 07/17/2016 [facility] Triglycerides 104 mg/dL N 15 (Trig/Chol/HDL) [address] [place] [address] [phone] Cholesterol 257 mg/dL N 16 HDL Cholesterol 53.3 mg/dL N 17 LDL Cholesterol 183 mg/dL N 18 Laboratory test 07/11/2016 [facility] Hemoglobin A1c 5.4 % N Less than 19 finding 101 [facility] (Glyco HGB) 6.0 [place] [address] [phone] Laboratory test 07/11/2016 [facility] Vitamin D Total 11.9 Low 30-[address] 25(Oh) ng/[place] [address] [phone] Laboratory test 07/23/2015 [facility] Vitamin D Total < 7.0 Low 30-[address] 25(Oh) ng/[place] [address] [phone] Laboratory test 02/09/2015 [facility] Cholesterol 236 N [address] mg/[place] [address] [phone] LDL Cholesterol Direct 155 mg/dL N 21 Hemoglobin A1c (Glyco HGB) 5.6 % N Less than 6.0 22 Comp Metabolic Panel 08/25/2014 [facility] Sodium 136 mmol/L N 133-[address] [place] [address] [phone] Potassium 4.0 mmol/L N 3.5-5.0 Chloride 103 [...] N >60 23 CBC Auto Diff 08/25/2014 [facility] White Blood 7.3 10^3/uL N 4.8-10.[address] [place] [address] [phone] Red Blood Count 4.41 10^6/uL N 4.0-5.4 [...] Cells % 0 N Laboratory test 08/06/2013 [facility] Throat Culture (SEE NOTE) [address] [place] [address] [phone] CBC Auto Diff 07/25/2013 [facility] White Blood 10.5 N 4.8-[address] Count 10^3/uL .8 [place] [address] [phone] Red Blood Count 4.30 10^6/uL N 4.0-5.4 [...] % 0 N Comp Metabolic Panel 07/25/2013 [facility] Sodium 135 mmol/L N 133-[address] [place] [address] [phone] Potassium 3.8 mmol/L N 3.7-5.6 Chloride 102 [...] 124.4 N >60 26 Rapid Influenza 04/08/2013 [facility] Rapid Influenza (SEE NOTE ) 27 A B Antigen [address] [place] [address] [phone] Comp Metabolic 04/08/2013 [facility] Sodium 132 mmol/L Low 133 -[address] [place] [address] [phone] Potassium 3.8 mmol/L 3.5-5.0 Chloride 102 mmol/L [...] 110.1 >60 28 CBC Auto Diff 04/08/2013 [facility] White Blood 5.7 10^3/uL 4.8-10.[address] [place] [address] [phone] Red Blood Count 4.47 10^6/uL 4.0-5.4 Hemoglobin [...] Cells % 0.1 Urine Culture And 11/30/2012 [facility] Urine Culture (SEE NOTE ) [address] [place] [address] [phone] Vitamin D, 25 12/13/2011 [facility] 25-Hydroxy <4.0 ng/mL () Hydroxy [address] Vitamin D2 [place] [address] [phone] 25-Hydroxy Vitamin D3 25 ng/mL () 25-Hydroxy Vitamin D Total 25 ng/mL () 30 PTH Intact, Inc 12/13/2011 [facility] PTH Intact 4.7 PMOL/L 1.3-9.3 Total Calcium [address] [place] [address] [phone] Calcium For Pthi 9.5 mg/dL 8.1-9.9 31 Lipid Profile 10/02/2011 [facility] Triglyceride 196 mg/dL 40 -200 (Trig/Chol/HDL) [address] [place] [address] [phone] Cholesterol 160 mg/dL Less Than 200 32 High Density Lipoprotein 43 mg/dL 40-60 33 Cholesterol/HDL Ratio 3.72 AVERAGE 1-4.44 Low Density Lipoprotein 78 mg/dL Less Than 100 34 Basic Metabolic Panel 10/02/2011 [facility] Sodium 135 mmol/L 135-145 [address] [place] [address] [phone] Potassium 4.2 mmol/L 3.5-5.0 Chloride 101 mmol/L 101-111 Co2 (Carbon Dioxide) 28.0 mmol/L 22-32 Anion Gap 6.0 mmol/L 2-11 35 Glucose 120 mg/dL High 70-100 BUN 14 mg/dL 6-24 Creatinine 0.7 mg/dL 0.50-1.40 One Over Creatinine 1.42 BUN/Creatinine Ratio 20.0 8-20 Calcium 9.4 mg/dL 8.1-9.9 eGFR Non- 85.9 > 60 eGFR 110.5 > 60 36 Laboratory 10/02/2011 [facility] Hepatitis C Nonreactive Nonreactive test finding 101 [facility] [place] [address] [phone] Urine Culture 02/23/2010 [facility] Urine NG 37 & Sensitivi 101 [facility] [place] [address] Sensitivi [phone] Surgical 10/05/2009 [facility] Surgical [address] [place] [address] Pathology -- <SEE NOTE> [place] [address] [phone] Comp Metabolic 09/27/2009 [facility] Sodium 136 mmol/L 135- 145 Panel [address] [place] [address] [phone] Potassium 3.8 mmol/L 3.5-5.0 Chloride 101 mmol/L 101-111 Co2 (Carbon Dioxide) 26.0 mmol/L 22-32 Anion Gap 9.0 mmol/L 2-11 39 Glucose 108 mg/dL High 70-100 40 BUN 12 mg/dL 6-24 Creatinine 0.70 mg/dL 0.50-1.40 One Over Creatinine 1.40 BUN/Creatinine Ratio 17.1 8-20 Calcium 9.7 mg/dL 8.1-9.9 41 Total Protein 7.0 GM/DL 6.2-8.1 Albumin 4.3 GM/DL 3.6-5.4 Globulin 2.7 GM/DL 2-4 Albumin/Globulin Ratio 1.6 1-3 Bilirubin Total 0.6 mg/dL 0.4-1.5 42 Alkaline Phosphatase 120 U/L High 30-110 Alt (SGPT) 15 U/L 14-54 Ast (Sgot) 16 U/L 12-42 eGFR Non- 92.0 > 60 eGFR 111.3 > 60 43 Laboratory test 09/27/2009 [facility] CPK (Creatine 51 U/L 0- 170 finding [facility] Kinase) [place] [address] [phone] Lipid Profile 09/27/2009 [facility] Triglyceride 159 mg/dL 40 -200 (Trig/Chol/HDL) [address] [place] [address] [phone] Cholesterol 220 mg/dL High Less Than 200 44 High Density Lipoprotein 45 mg/dL 40-60 45 Cholesterol/HDL Ratio 4.89 AVERAGE High 1-4.44 Low Density Lipoprotein 143 mg/dL High Less Than 100 46 Urinalysis W/Microscopic 09/22/2009 [facility] Ua Color YELLOW Yellow [address] [place] [address] [phone] Appearance-Urine CLEAR Clear Specific [place]-Ur 1.014 1.010-1.030 Esterase-Urine NEGATIVE Negative Nitrite NEGATIVE Negative Sswiymjhfmaf-Ie-GTK NEGATIVE Negative Protein-Urine NEGATIVE Negative PH-Urine 5.5 5-9 Blood-Urine NEGATIVE Negative Ketones-Urine NEGATIVE Negative Bilirubin-Ur NEGATIVE Negative Glucose-Urine NEGATIVE Negative WBC-Urine 0-2 0-5 RBC-Urine 0-2 0-2 Ursc-1 09/12/2009 [facility] Ampicillin 4 S [address] [place] [address] [phone] Amikacin <=2 S Ciprofloxacin <=0.25 S Ceftriaxone <=1 S Cefazolin <=4 S Nitrofurantoin <=16 S Gentamicin <=1 S Imipenem <=1 S Levofloxacin <=0.12 S Trimeth-Sulfa <=20 S Ceftazidime <=1 S Tigecycline <=0.5 S Piperacillin/Tazobactam <=4 S Urine Culture & 09/12/2009 [facility] Urine Culture ESCHERICHIA [address] [place] [address] [phone] Urinalysis 09/12/2009 [facility] Ua Color YELLOW Yellow W/Microscopic [address] [place] [address] [phone] Appearance-Urine CLEAR Clear Specific [place]-Ur 1.017 1.010-1.030 Esterase-Urine 2+ Abnormal Negative Nitrite NEGATIVE Negative Gjiowwrvubbv-Bt-HYD NEGATIVE Negative Protein-Urine NEGATIVE Negative PH-Urine 5.5 5-9 Blood-Urine 1+ Abnormal Negative Ketones-Urine NEGATIVE Negative Bilirubin-Ur NEGATIVE Negative Glucose-Urine NEGATIVE Negative WBC-Urine TNTC Abnormal 0-5 RBC-Urine 0-2 0-2 Mucus Urine SMALL None Epith Cells-Ur FEW None Bacteria-Urine 1+ None CBC With 07/16/2009 [facility] White Blood 3.8 CUMM Low 4.8- 10.8 Electronic Diff [address] [place] [address] [phone] Red Cell Count 4.03 CUMM Low 4.2-5.4 [...] Eosinophils 0.1 0-0.6 Abs Basophils 0 0-0.2 Comp Metabolic Panel 07/16/2009 [facility] Sodium 138 mmol/L 135-145 [address] [place] [address] [phone] Potassium 4.1 mmol/L 3.5-5.0 Chloride 105 mmol/L 101-111 Co2 (Carbon Dioxide) 26.0 mmol/L 22-32 Anion Gap 7.0 mmol/L 2-11 49 Glucose 109 mg/dL High 70-100 50 BUN 16 mg/dL 6-24 Creatinine 1.10 mg/dL 0.50-1.40 One Over Creatinine 0.90 BUN/Creatinine Ratio 14.5 8-20 Calcium 9.7 mg/dL 8.1-9.9 51 Total Protein 6.6 GM/DL 6.2-8.1 Albumin 4.2 GM/DL 3.6-5.4 Globulin 2.4 GM/DL 2-4 Albumin/Globulin Ratio 1.8 1-3 Bilirubin Total 0.7 mg/dL 0.4-1.5 52 Alkaline Phosphatase 100 U/L 30-110 Alt (SGPT) 13 U/L Low 14-54 Ast (Sgot) 15 U/L 12-42 eGFR Non- 54.8 > 60 eGFR 66.3 > 60 53 Lipid Profile 07/16/2009 [facility] Triglyceride 107 mg/dL 40 -200 (Trig/Chol/HDL) [address] [place] [address] [phone] Cholesterol 272 mg/dL High Less Than 200 54 High Density Lipoprotein 48 mg/dL 40-60 55 Cholesterol/HDL Ratio 5.67 AVERAGE High 1-4.44 Low Density Lipoprotein 203 mg/dL High Less Than 100 56 Urinalysis W/Microscopic 07/16/2009 [facility] Ua Color YELLOW Yellow [address] [place] [address] [phone] Appearance-Urine CLEAR Clear Specific [place]-Ur 1.018 1.010-1.030 Esterase-Urine NEGATIVE Negative Nitrite NEGATIVE Negative Skswzakaxddf-Lu-PLR NEGATIVE Negative Protein-Urine NEGATIVE Negative PH-Urine 6.0 5-9 Blood-Urine NEGATIVE Negative Ketones-Urine NEGATIVE Negative Bilirubin-Ur NEGATIVE Negative Glucose-Urine NEGATIVE Negative RBC-Urine 0-2 0-2 Epith Cells-Ur RARE None C Peptide 07/16/2009 [facility] C-Peptide ng/mL 1.8 ng/mL 0.9 -4.[address] [place] [address] [phone] C-Peptide pmol/L 600 pmol/L [phone] 57 1 [id number] 2 SEE RESULT BELOW Name: DUTCH LINTON : [address]: Singh Blackburn MD Acct: [id number] Unit: [id number] AGE: 62 Location: [facility] Re04/24/18 SEX: F Status: DEP ER SPEC: [id number] ALFREDO: 04/24/[address] [facility] [address]: Marzena CACERES REQ: [id number] RECD: 04/25/18 STATUS: MURALI MORENO DR: Ermias Blackburn MD _ SOURCE: URINE SPDESC: ORDERED: Urine Culture COMMENTS: [id number] Procedure Result Reported Site Urine Culture Final 04/27/18925 ML Organism 1 KLEBSIELLA PNEUMONIAE [place] Count >100,000 (Many) CFU/ML 1. KLEBSIELLA PNEUMONIAE [...] . END OF REPORT DEPARTMENT OF PATHOLOGY, [address] [place] [address] Shiva Calabrese M.D. Director [facility] # [id number] 3 Basting Puller: [id number] 4 02 SAT @ 99% after treatment, pt tolerated well 5 SEE RESULT BELOW Name: DUTCH LINTON : [address]: Portillo Coronado NP Acct: [id number] Unit: [id number] AGE: 62 Location: [facility] Re01/09/18 SEX: F Status: REG REF SPEC: [id number] ALFREDO: 01/09/[address]: Portillo Coronado NP REQ: [id number] RECD: 01/09/18 STATUS: SOUT _ ORDERED: TP IMAGE ANALYS, HPV/Thin Prep COMMENTS: [id number] Negative for Intraepithelial lesion or Malignancy Date Time Test Result Flag (u) Normal Range 01/09/18 0872 @ HPV RNA Negative Negative @ @ [...] was evaluated with the assistance of the Sales Layerp Test Imaging System. Due to cytologic findings at the inside sales engineer microscope, comprehensive manual rescreening by a Systems Support Engineer may be required. The Pap Smear is [...] years. END OF REPORT DEPARTMENT OF PATHOLOGY, [address] [place] [address] Shiva Calabrese M.D. Director [facility] # [id number] 6 Desirable: <150 Borderline High: 150-199 High: [...] in selective patients <6.0%. Please refer to [employer] diabetic care guidelines for further [...] and in selective patients <6.0%.Please refer to [employer] Diabetic care guidelines for further information. 20 Desirable <200 Borderline high 200-239 High >239 21 Desirable: <100 mg/dL Near Optimal: 100-129 mg/dL Borderline High: 130-159 mg/dL High: 160-189 mg/dL Very High: >189 mg/dL 22 Therapeutic target for the treatment of diabetes Mellitus patients is <7% HBA1C, and in selective patients <6.0%.Please refer to [employer] Diabetic care guidelines for further [...] <15 (or dialysis) 24 RUN DATE: 08/08/13 [facility] LAB LIVE PAGE 1 RUN TIME: [address] [place] [address] Specimen Inquiry Name: DUTCH LINTON : [address]: Roshan Desai MD Acct: [id number] Unit: [id number] AGE: 58 Location: [facility] Re08/06/13 SEX: F Status: REG REF SPEC: [id number] ALFREDO: 08/06/13-[address] [facility] [address]: Ermias Desai MD REQ: [id number] RECD: 08/06/13 STATUS: COMP _ SOURCE: THROAT SPDESC: ORDERED: Throat Culture QUERIES: Medent Number [id number] Procedure Result Verified Site Throat Culture Final 08/08/13- 1148 ML Organism 1 NORMAL LUIGI Quantity 2+ END OF REPORT * ML=Testing performed at Main Lab DEPARTMENT OF PATHOLOGY, [facility] [place], [place] [address] Shiva Calabrese M.D. Director [facility] Permit #[id number] [address] De Jesus's office on Backline [phone]~Patient waiting in lab for further in Because [...] <15 (or dialysis) 27 RUN DATE: 04/08/13 [facility] LAB LIVE PAGE 1 RUN TIME: [address] [place] [address] Specimen Inquiry Name: DUTCH LINTON : [address]: Pietro Pritchard DO Acct: [id number] Unit: [id number] AGE: 57 Location: ED Re04/08/13 SEX: F Status: REG ER SPEC: [id number] ALFREDO: 04/08/[address]: Pietro Pritchard DO REQ: [id number] RECD: 04/08/13 STATUS: MURALI MORENO DR: Ermias Desai MD _ SOURCE: [facility]: ORDERED: Rapid Flu A B Procedure [...] performed at Main Lab DEPARTMENT OF PATHOLOGY, [address] [place] [address] Shiva Calabrese M.D. Director [facility] Permit #[id number] 28 Because ethnic data is not always [...] <15 (or dialysis) 29 RUN DATE: 12/03/12 [facility] LAB LIVE PAGE 1 RUN TIME: [address] [place] [address] Specimen Inquiry Name: SHAILADUTCH M : [address]: Alvaro Tobar MD Acct: [id number] Unit: [id number] AGE: 57 Location: [facility] Re11/30/12 SEX: F Status: DEP ER SPEC: [id number] ALFREDO: 11/30/12-[address] [facility] [address]: Alvaro Tobar MD REQ: [id number] RECD: 12/01/12 STATUS: MURALI MORENO DR: CASTILLO Desai MD _ SOURCE: URINE SPDESC: ORDERED: Urine Culture Procedure Result Verified Site Urine Culture Final 12/03/12- 0847 ML Organism 1 ESCHERICHIA COLI [place] Count >100,000 (Many) CFU/ML 1. ESCHERICHIA COLI [...] performed at Main Lab DEPARTMENT OF PATHOLOGY, [address] [place] [address] Shiva Calabrese M.D. Director [facility] Permit #[id number] 30 -- REFERENCE VALUE -- 25-HYDROXY D TOTAL (D2+D3) Optimum levels in the normal population are 25-80 Test Performed by: [place] [address] Resource Engineer: Adrien Short III, M.D. 31 Please note [...] (<1,000 CFU/mL) 38 ---- RUN DATE: 10/07/09 [facility] NMI LIVE PAGE 1 RUN TIME: 1313 Specimen Inquiry RUN USER: INTERFACE -- Name: DUTCH LINTON Status: REG REF Re10/05/09 Age/Sex: 54/F Unit#: [id number] Location: [address] [place] [address]. : [birth year] -- Specimen: [id number] Spec Date: 10/05/[address]: Marty garrett MD Spec Type: SURGICAL P Received: 10/06/09-0954 Copies to: Shashi Burnette SPECIMEN RANDOM COLON BIOPSIES HISTORY PRE-OP DIAGNOSIS: Rule out microscopic colitis POST-OP DIAGNOSIS: To cecum, normal, biopsy taken CLINICAL INFORMATION: Change in bowel habits GROSS DESCRIPTION Specimen received in formalin labelled [place], Random Colon Biopsies and consists of two, nieves, soft tissue fragments measuring 0.6 x 0.3 x 0.1 cm. Submitted entirely, one cassette. DIAGNOSIS Colon, random biopsies: A) Large intestinal mucosa with no significant pathologic abnormality. B) No evidence of microscopic/lymphocytic colitis, collagenous colitis or other chronic inflammatory bowel process identified. Signed Electronically by: SHIVA CALABRESE MD 10/07/09 1312 -- -- DEPARTMENT OF PATHOLOGY, [address] [place] [address] [facility] Permit #[id number] Shiva Calabrese M.D. Director Cara Barrera M.D. Chemical Engineering Intern Dir padmini -- 39 Anion gap measurement may be of limited value in the presence of any alkalosis, especially in a combined acid base disorder. . 40 Note change in reference range as of 11/28/07. The change was based on recommendations from the [employer]. 41 Please note change in reference range effective 07 . 42 A metabolite of Naproxen, O-desmethylnaproxen, has been shown to interfere with the Jendrassik-Sesar method for measuring total bilirubin. Samples from patients who have taken Naproxen have shown spurious elevation in total bilirubin levels. 43 Because ethnic data is not always readily [...] 15-29 5 Kidney failure <15 (or dialysis) 44 CHOLESTEROL INTERPRETATION: Desirable: Less than 200 MG/DL Borderline-High Risk: 200-239 MG/DL High-Risk: 240 MG/DL and over 45 HDL INTERPRETATION: Undesirable: High Risk: Less than 40 MG/DL Desirable: Low Risk: Greater than 60 MG/DL 46 LDL INTERPRETATION: Low Risk Optimal Level: LDL Less than 100 MG/DL Near or Above Optimal: LDL 100-129 MG/DL Borderline High Risk: LDL 130-159 MG/DL High Risk: LDL 160-189 MG/DL Very High Risk: LDL Greater than 189 MG/DL 47 SPECIMEN DESCRIPTION: URINE, CLEAN CATCH 48 100^75-100,000 ORGANISMS/ML (MANY)^CCU 49 Anion gap measurement may be of limited value in the presence of any alkalosis, especially in a combined acid base disorder. . 50 Note change in reference range as of 11/28/07. The change was based on recommendations from the [employer]. 51 Please note change in reference range effective 07 . 52 A metabolite of Naproxen, O-desmethylnaproxen, has been shown to interfere with the Jendrassik-Sesar method for measuring total bilirubin. Samples from patients who have taken Naproxen have shown spurious elevation in total bilirubin levels. 53 Because ethnic data is not always readily [...] 15-29 5 Kidney failure <15 (or dialysis) 54 CHOLESTEROL INTERPRETATION: Desirable: Less than 200 MG/DL Borderline-High Risk: 200-239 MG/DL High-Risk: 240 MG/DL and over 55 HDL INTERPRETATION: Undesirable: High Risk: Less than 40 MG/DL Desirable: Low Risk: Greater than 60 MG/DL 56 LDL INTERPRETATION: Low Risk Optimal Level: LDL Less than 100 MG/DL Near or Above Optimal: LDL 100-129 MG/DL Borderline High Risk: LDL 130-159 MG/DL High Risk: LDL 160-189 MG/DL Very High Risk: LDL Greater than 189 MG/DL 57 Test Performed by: [facility] D[facility] of Lab Med and Pathology [address] [place], [place] [id number] Resource Engineer: Adrien Short III, M.D. Procedures Date Code Description Status 09/19/2018 09890 Admin Of Inj Completed 09/05/2018 [id number] Mammogram Completed 08/07/2018 46445 Admin Of Inj Completed 07/23/2018 13978 Admin Of Inj Completed 03/11/2018 20061 Inhalation TX For Acute Airway Obstruction Completed W/Nebulizer/Inhaler 09/04/2017 [id number] Mammogram Completed 09/01/2016 [id number] Mammogram Completed 08/30/2015 [id number] Mammogram Completed 07/19/2015 [id number] Bone Mineral Density Test Completed 08/26/2014 [id number] Mammogram Completed 08/25/2013 85843928 Mammogram Completed 09/12/2012 [id number] Mammogram Completed 10/25/2011 76957 Xray Knee 3 Views Completed 10/25/2011 88416 Rad Exam; Knee, Ap&L Completed 10/12/2011 [id number] Bone Mineral Density Test Completed 09/12/2011 19636001 Mammogram Completed 09/08/2010 35045801 Mammogram Completed 10/05/2009 73121089 Colonoscopy Completed 08/26/2009 23016840 Mammogram Completed Encounters Type Date Location Provider Dx Diagnosis Office Visit 05/28/2018 [facility] Internal Korina Meadows MD I10 Essential ( primary) 4:40p Medicine - Suite hypertension R G44.41 Drug-induced headache, not elsewhere classified, intractable G43.009 Migraine w/o aura, not intractable, w/o status migrainosus Office Visit 04/23/2018 4:00p [facility] Internal Korina Meadows G43.009 Migraine w/o aura, Medicine - not intractable, Suite R w/o status migrainosus G44.41 Drug-induced headache, not elsewhere classified, intractable I10 Essential (primary) hypertension Office Visit 03/26/2018 2:40p [facility] Internal Korina Meadows, J30.9 Allergic rhinitis, Medicine - Suite unspecified R J45.909 Unspecified asthma, uncomplicated Office Visit 03/11/2018 11:20a [facility] Internal Korina Meadows, J98.01 Acute bronchospasm Medicine - MD Suite R Office Visit 01/09/2018 2:40p [facility] Internal Portillo Coronado, Z00.00 Encntr for general Medicine - TANNERY GUMMER adult medical exam Suite R w/o abnormal findings Z12.4 Encounter for screening for malignant neoplasm of cervix G43.009 Migraine w/o aura, not intractable, w/o status migrainosus R53.83 Other fatigue E78.5 Hyperlipidemia, unspecified M54.5 Low back pain E55.9 Vitamin D deficiency, unspecified M81.0 Age-related osteoporosis w/o current pathological fracture Office Visit 05/04/2017 3:40p [facility] Internal Portillo Coronado, G43.009 Migraine w/o aura, Medicine - TANNERY GUMMER not intractable, Suite R w/o status migrainosus G47.00 Insomnia, unspecified E55.9 Vitamin D deficiency, unspecified M81.0 Age-related osteoporosis w/o current pathological fracture E78.5 Hyperlipidemia, unspecified Office Visit 12/08/2016 3:40p [facility] Internal Ermias Hutchins T48.1x5A Adverse effect Isaac Desai M.D.,FACP of skeletal Suite R muscle relaxants, init encntr T40.2x5A Adverse effect of other opioids, initial encounter M54.5 Low back pain Office Visit 11/13/2016 8:20a [facility] Internal Ermias Hutchins T48.1x5A Adverse effect Isaac Desai M.D.,FACP of skeletal Suite R muscle relaxants, init encntr T40.2x5A Adverse effect of other opioids, initial encounter Office Visit 10/25/2016 1:00p [facility] Internal Portillo Coronado, M54.5 Low back pain Medicine - Suite R TANNERY GUMMER E55.9 Vitamin D deficiency, unspecified G47.00 Insomnia, unspecified G43.009 Migraine w/o aura, not intractable, w/o status migrainosus M81.0 Age-related osteoporosis w/o current pathological fracture Office Visit 10/05/2016 12:10p [facility] Internal Ermias Hutchins M25.511 Pain in right Isaac Desai M.D.,FACP shoulder Suite R Office Visit 09/06/2016 11:00a [facility] Internal Portillo Coronado, Z00.01 Encounter for Medicine - TANNERY GUMMER general adult Suite R medical exam w abnormal findings G43.009 Migraine w/o aura, not intractable, w/o status migrainosus M81.0 Age-related osteoporosis w/o current pathological fracture E55.9 Vitamin D deficiency, unspecified Z13.1 Encounter for screening for diabetes mellitus Z13.220 Encounter for screening for lipoid disorders Z00.00 Encntr for general adult medical exam w/o abnormal findings Office Visit 01/05/2016 4:00p [facility] Internal Dada Be, J45.909 Unspecified asthma, Medicine - TILE ROOFER uncomplicated Suite R J45.901 Unspecified asthma with (acute) exacerbation Office Visit 07/23/2015 3:40p [facility] Internal Ermias Hutchins M80.00xA Age-rel Isaac Desai M.D.,FACP osteopor w Suite R current path fracture, unsp site, init S22.42xD Multiple fx of ribs, left side, subs for fx w routn heal Office Visit 03/11/2015 9:30a [facility] Internal Dada Be, J06.9 Acute upper Medicine - Suite TILE ROOFER respiratory R infection, unspecified R05 Cough Office Visit 03/02/2015 1:00p [facility] Internal Dada Be, J01.90 Acute sinusitis, Medicine - TILE ROOFER unspecified Suite R R05 Cough R50.9 Fever, unspecified Office Visit 02/01/2015 4:40p [facility] Internal Ermias Hutchins M25.511 Pain in right Isaac Desai M.D.,FACP shoulder Suite R Office Visit 11/17/2014 4:00p [facility] Internal Dada Be, TILE ROOFER 461.1 Sinusitis Acute Medicine - Frontal Suite R 346.10 Migraine Common W/O Intractable W/O Status Migrainosus 461.9 Sinusitis Acute Unspec Office Visit 08/26/2014 2:50p [facility] Internal Ermias Hutchins 726.19 Shoulder Isaac Desai M.D.,FACP Disorders Other Suite R Spec 726.19 Shoulder Disorders Other Spec Office Visit 07/16/2014 2:00p [facility] Internal Dada Be, 338.21 Chronic Pain Due Medicine - TILE ROOFER To Trauma Suite R Office Visit 07/16/2014 2:00p [facility] Internal Dada Be, 780.52 Insomnia Medicine - TILE ROOFER Unspecified Suite R 465.9 URI Upper Respiratory Infections Acute Unspec Sites Office Visit 08/06/2013 2:40p [facility] Internal Ermias Hutchins 462 [facility]itis [facility] 707.09 Pressure Ulcer, Other Site Office Visit 04/11/2013 4:00p [facility] Internal Ermias Hutchins 466.0 Bronchitis Acute Isaac Desai M.D.,FACP Ccmob Office Visit 04/11/2013 3:40p [facility] Nydia Hutchins 719.41 Pain Joint Isaac Desai M.D.,FACP Shoulder Region [facility] Office Visit 12/13/2012 10:00a [facility] Nydia Hutchins 726.19 Shoulder Isaac Desai M.D.,FACP Disorders Other Ccmob Spec Office Visit 09/12/2012 12:37p [facility] Nydia Monson D. 719.41 Pain Joint Isaac Desai M.D.,FACP Shoulder Region [facility] 723.1 Cervicalgia Office Visit 07/03/2012 2:40p [facility] Internal Ermias Hutchins 346.10 Migraine Common Isaac Desai M.D.,FACP W[facility] Status Migrainosus 733.09 Osteoporosis Other Office Visit 06/04/2012 [facility] Internal Ermias Hutchins 726.19 Shoulder Disorders 10:30a Isaac Desai M.D.,FACP Other Spec Office Visit 03/27/2012 [facility] Nydia Hutchins 726.19 Shoulder Disorders 4:20p Isaac Desai M.D.,FACP Other Spec Office Visit 02/19/2012 [facility] [place] Giles 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 Unspec Ccmob Office Visit 07/18/2011 10:30a Appeals Manager Internal Ermias Hutchins 726.19 Shoulder Isaac Desai M.D.,FACP Disorders Other Ccmob Spec Office Visit 05/19/2011 4:20p Appeals Manager Internal Ermias Hutchins 726.19 Shoulder Isaac Desai M.D.,FACP Disorders Other Ccmob Spec Office Visit 03/15/2011 4:40p DO Not Use Appeals Manager Ermias Hutchins 466.0 Bronchitis Acute AT Kevin Desai M.D.,FACP Office Visit 01/26/2011 4:20p DO Not Use Appeals Manager Ermias Hutchins 719.41 Pain Joint AT Kevin Des[facility] M[facility] 723.1 Cervicalgia Office Visit 01/26/2011 4:00p DO Not Use Appeals Manager Ermias Hutchins 780.52 Insomnia AT Kevin Desai M.D.,FAC Unspecified 346.10 Migraine Common W/O Intractable W/O Status Migrainosus Office Visit 10/26/2010 11:20a DO Not Use Appeals Manager Ermias Hutchins 719.41 Pain Joint AT Kevin Desai M.D.,FACP Shoulder Region Office Visit 07/26/2010 11:20a DO Not Use Appeals Manager Ermias Hutchins 346.10 Migraine Common AT Kevin Desai M.D.,FACP W/O Intractable W/O Status Migrainosus 401.1 Hypertension Benign Office Visit 07/26/2010 11:00a DO Not Use Appeals Manager AT Ermias Desai, 724.2 Lumbago Kevin Cabrera,FACP 724.9 Back Disorders Other Unspec Office Visit 05/24/2010 4:00p DO Not Use Appeals Manager Ermias Hutchins 461.9 Sinusitis Acute AT Kevin Desai M.D.,FACP Unspec Office Visit 04/06/2010 1:00p DO Not Use Appeals Manager Ermias Hutchins 726.19 Shoulder AT [facility] Rick Desai,FACP Disorders Other Spec Office Visit 12/30/2009 4:00p DO Not Use Appeals Manager Ermias Hutchins 346.10 Migraine Common AT [facility] Rick Desai,FACP W/O Intractable W/O Status Migrainosus 726.19 Shoulder Disorders Other Spec 780.52 Insomnia Unspecified 724.9 Back Disorders Other Unspec 401.1 Hypertension Benign Office Visit 12/30/2009 3:40p DO Not Use Appeals Manager Ermias Hutchins 346.10 Migraine Common AT [facility] Rick Desai,FACP W/O Intractable W/O Status Migrainosus 726.19 Shoulder Disorders Other Spec 780.52 Insomnia Unspecified 724.9 Back Disorders Other Unspec 401.1 Hypertension Benign Office Visit 09/28/2009 3:40p DO Not Use Appeals Manager Ermias Hutchins 847.1 Sprains & AT Kentluis e Desai M.D.,FACP Strains Thoracic 728.85 Spasm Muscle Office Visit 08/18/2009 3:00p DO Not Use Appeals Manager AT Shashi Marrero, 724.2 Lumbago [facility] Rick 724.2 Lumbago 723.1 Cervicalgia 723.1 Cervicalgia 726.19 Shoulder Disorders Other Spec 726.19 Shoulder Disorders Other Spec 724.9 Back Disorders Other Unspec 724.9 Back Disorders Other Unspec Office Visit 08/16/2009 4:00p DO Not Use Appeals Manager Elida, 346.90 Migraine Unspec AT [facility] Rick Danielle W/O Intractable W/O Status Migrainosus 272.0 Hypercholesterolemia Pure Office Visit 07/15/2009 10:00a DO Not Use Appeals Manager Elida, 346.90 Migraine Unspec AT [facility] Rick Danielle W/O Intractable W/O Status Migrainosus 724.5 Backache Unspec 239.3 Neoplasm Unspecified Breast 309.81 Posttraumatic Stress Disorder V11.2 History Personal Neurosis 312.4 Disturbance Of Conduct & Emotions Mixed Plan of Treatment Future Appointment(s):01/29/2019 3:20 pm - Korina Meadows MD at [facility] Internal Medicine - Ccmob06/ - Korina Meadows MDI10 Essential (primary) hypertensionComments:Your high blood pressure is in excellent control on your current management. Please go for routine monitoring of liver and kidney functions todayFollow up:4 months Welcome to Medicare HwdpcnpkM75.009 Migraine without aura, not intractable, without status migraComments:will continue slow gradual tapering off of Fiorcet with codeine, will decrease to 60 a month.You must see a headache specialist by the end of the year, as I will not continue refilling this medication after thatReferral:Linda Hanks MD, FpkottqqmF38.5 Low back painComments:continue treatments with chiropractor and Dr. Laboy
--- OUTSIDE RECORDS SUMMARY | 2018-10-05 10:23 | XMS REPORT | Continuity of Care Document ---
:1955 External Reference #:[id number] Author Name Laurie Schwarz Care Team Providers Name Role Phone Korina Meadows M.D. Primary Care Physician Unavailable Payers Date Identification Numbers Payment Provider Subscriber Effective: 2016 Policy Number: [id number] [employer] Dutch Linton PayID: [id number] [address] [address] [place] [address] Policy Number: [id number] [facility] Dutch Linton PayID: [id number] [address] [place] [address] Effective: 2012 Policy Number: [id number] [employer] Dutch Linton Expires: 2016 PayID: [id number] [address] [address] [place] [address] Onset: 1997 Policy Number: [id number] TST Dutch Linton PayID: [id number] [address] [place] [address] Effective: 2011 Policy Number: [id number] [employer] Of BRODIE Linton Expires: 2011 PayID: [id number] [address] [address] [place] [address] Expires: 2009 Policy Number: [id number] [employer] Of BRODIE Linton PayID: [id number] [address] [address] [place] [address] Controverted Dutch Linton Onset: 1997 Group Name: [employer] Dutch Linton [address] [place] [address] Advance Directives Type Date Description Status Comment Other Directive 01/09/2018 Health Care Proxy Current and Verified Problems Active Problems Provider Date Thoracic back sprain Ermias Desai M.D.,FACP Onset: 09/28/2009 [facility] Ermias Desai M.D.,FACP Onset: 09/28/2009 Migraine without [...] Patient has never smoked Smoking Status Reviewed: 09/19/18 Patient has never smoked Exercise Type/Frequency Exercises [...] Medications SIG Qnty Indications Ordering Date Provider Butalbital/Aspirin/Ca 1-2 every 8 hours 75caps G43.009 Ladi 05/29/2018 ffeine/Codeine as needed for Rick Rodriguez severe migraine. [id number] must last 28 days Capsules Propranolol HCL 1 by mouth twice a 60tabs I10 Korina Meadows, 05/28/2018 20mg day MD Tablets Nitrofurantoin 1 by mouth twice a 14caps Ladi 05/01/2018 Macrocrystal day Rick Rodriguez 100mg Capsules Calcium 500 + D3 2 tabs by mouth 90tabs Ermias Hutchins 04/26/2018 every day [place], [id number] M.D.,FACP Tablets Fish Oil 1 tab by mouth 100caps Ermias Hutchins 04/26/2018 1000mg every day [place], Capsules M.D.,FACP Ketorolac 2ml intramuscular x 4ml G43.009 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 Vitamin D3 Ultra 1 by mouth every 90caps Zsofia Cliff, 08/13/2017 Strength day SCRIBING MACHINE OPERATOR 5000Unit Capsules Ambien 1 tab by mouth at 30tabs G47.00 Ladi 05/04/2017 10mg Tablets bedtime as needed Rick Rodriguez Baclofen take 1/2 tab by 45tabs Ermias Hutchins 12/08/2016 10mg Tablets mouth three times [place], daily M.D.,FACP Lidoderm apply topically 30units Ermias Hutchins 09/18/2016 5% Patches every day for 12 [place], hours to RT M.D.,FACP shoulder, work-related injury Latanoprost 1 drop in each eye Other Ordering 07/14/2015 0.005% at bedtime Provider Solution Freestyle Lite Blood check fingerstick 1units Ermias Hutchins 07/28/2013 Glucose Monitoring daily hypoglycemic [place], System M.D.,FACP Device Proair HFA 2 puffs by mouth 8.5units J45.909 Zsofia Cliff, 09/10/2012 108(90Base) four times a day as SCRIBING MACHINE OPERATOR mcg/Act Aerosol needed Freestyle Lite Test test BS up to three 100units Ermias Hutchins 11/24/2011 Strips times daily, last [place], Strips visit: 05/04/17 MButch,FACP Freestyle Lancets test BS up to three 100units Ermias Hutchins 11/24/2011 Misc times daily, last [place], visit: 05/04/17 MButch,FACP Phenazopyridine HCL one po tid prn 30tabs Korina Meadows, dysuria 100mg Tablets Zioptan one drop in each Unknown 0.0015% eye once daily in Solution evening Ventolin HFA 2 puffs by mouth 8gm Korina Meadows, four times a day as 108(90Base) mcg/Act needed (rx'd by Aerosol urgent care) Imitrex every 2 hours as 18tabs G43.909 Ladi 50mg Tablets needed mdd4 mdd 4 Rick Rodriguez G43.009 Timolol Maleate instill one drop Unknown 0.5% into both eyes twice Solution daily (Timoptic) Excedrin Migraine 1 tab twice a day as G43.009 Unknown needed for migraine [id number] Tablets Lumigan one drop in left eye Unknown 0.01% Solution daily Acetaminophen-Codeine 2 tab every 4 hours Unknown #4 as needed pain 300-60mg Tablets (work-related) Carisoprodol 1 tablets by mouth 120tabs M62.40 Zsofia Cliff, 350mg four times a day as SCRIBING MACHINE OPERATOR Tablets needed History Medications Prednisone 3 tabs once a day 20tabs J98.01 Korina Meadows, 03/11/2018 - 20mg Tablets x 3 days, 2 tabs MD 03/26/2018 once a day for 3 days, 1 tab once a day for three days, half tab once a day for 3 days Ibandronate Sodium take 1 tablet by 3tabs M81.0 Geoffreyofitara 01/09/2018 - mouth once a month [facility] 01/14/2018 150mg Tablets Vitamin D by mouth everyday 90tabs E55.9 Zsofia 05/04/2017 - 1000Unit [facility], [facility] 08/13/2017 Tablets Vitamin D by mouth everyday 30tabs Zsofia 02/23/2017 - 1000Unit [facility] 08/13/2017 Tablets Ibuprofen 1 tab by mouth 60tabs M54.5 ofi 10/25/2016 - 800mg Tablets three times a day [facility] 12/08/2016 with food as needed Meloxicam 1 by mouth twice a 60tabs M25.511 ofi 10/05/2016 - 7.5mg Tablets day as needed [facility] 04/23/2018 Vitamin D3 Maximum 1 by mouth every 90caps [facility] 09/11/2016 - Strength day for 3 month, [facility] 04/23/2018 5000Unit repeat labs when Capsules completed Calcium 1000 + D take 1 tab po 90tabs M81.0 ofi 09/06/2016 - daily [facility] 04/23/2018 [id number] Tablets Ra Fish Oil take 1 capsule by 90caps ofi 09/06/2016 - 1000mg mouth once daily [facility] 04/23/2018 Capsules Amoxicillin take one tablet by 20tabs J45.909 Dada Be, 01/05/2016 - 875mg mouth twice a day [employer]MONIA WORKER 01/15/2016 Tablets x's 10 days States she has taken amoxicillin without difficulty Keflex not a true aller Tessalon Katie 1-2 capsule by 30caps J45.909 Ermias Hutchins 01/05/2016 - 100mg mouth three times [place], 01/15/2016 Capsules a day as needed M.Liset,FACP Atrovent HFA 1-2 inhalation q6 12.900gm J45.90Gene Hutchins 01/05/2016 - 17mcg/Act hours as needed [place], 01/15/2016 Aerosol M.Liset,FACP Prednisone 2 tablets by mouth 10tabs J45.909 Dada Be, 01/05/2016 - 20mg Tablets daily x's 5 days AMMONIA WORKER 01/10/2016 in the morning Ergocalciferol by mouth q1wk 12caps E55.9 Ermias Hutchins 07/29/2015 - [place], 09/11/2016 [id number] Capsules Rick,[facility] M81.0 Ibandronate Sodium take 1 tablet by 3tabs M81.0 Ermias Hutchins 07/23/2015 - mouth once a Rick Desai,[facility] 09/06/2016 150mg Tablets month Medrol (Robbie) take as 1tabs R05 Dada Be NP 03/11/2015 - 4mg prescribed 03/16/2015 Tablets Benzonatate 1-2 capsule three 15caps R05 Dada Be NP 03/02/2015 - 100mg times a day take 01/05/2016 Capsules as needed. Azithromycin 2 tabs by mouth 6tabs 461.1 Dada Be NP 11/17/2014 - 250mg on day 1; 1 tab 11/22/2014 Tablets by mouth every day on days 2-5 Amoxicillin 2 tabs by mouth 40tabs 462 Ermias Hutchins 08/06/2013 - 500mg twice a day for Rick Desai,[facility] 07/16/2014 Tablets 10 days Prednisone 5 tabs qd for 2 30tabs Ermias Hutchins 04/11/2013 - 10mg days, then reduce Rick Desai,[facility] 08/06/2013 Tablets by 1 tab every 2 days until finished Sulfamethoxazole/Tr po bid 10tabs Ermias Hutchins 12/02/2012 - imethoprim DS Rick Desai,[facility] 12/02/2012 800-160mg Tablets Azithromycin 2 qd for 1 day, 6tabs 726.19 Ermias Hutchins 09/12/2012 - 250mg then 1 qd Rick Desai,[facility] 09/17/2012 Tablets Tessalon tid prn po 30caps Ermias Hutchins 03/14/2012 - 200mg Rick Desai,[facility] 06/04/2012 Capsules Percocet 1/2 to 1 po q8h 40tabs [place] Giles M.D. 02/19/2012 - 5-325mg prn pain knee 03/27/2012 Tablets [place] take 1 tab po tid 15tabs [place] Giles M.D. 01/10/2012 - 5-325mg prn pain 03/14/2012 Tablets Calcium 500+D High by mouth twice a 733.02 Ermias Hutchins 12/08/2011 - Potency day Rick Desai,[facility] 04/11/2013 [id number] Tablets Evista 1 po qd 30tabs 733.02 Ermias Hutchins 12/08/2011 - 60mg Tablets Rick Desai,[facility] 04/11/2013 Zostavax 1 dose s/c 1units Ermias Hutchins 09/13/2011 - [facility] 10/11/2011 06094Exx/0.65ML Solution Rec Azithromycin 2 tabs po qd x1 6tabs 461.9 Ermias Hutchins 07/20/2011 - 250mg day, 1 tab po qd Rick Desai,[facility] 10/04/2011 Tablets x 4 days Nasonex 2 sprays in each 17g 461.9 Ermias Hutchins 07/20/2011 - 50mcg/Act nostril once Rick Desai,[facility] 07/20/2011 Suspension daily Nasal Saline 2 sprays in each 1ml 461.9 Ermias Hutchins 07/20/2011 - 0.65% nostril 5 times a Rick Desai,[facility] 07/16/2014 Solution day Fluticasone 2 spray in each 1bottle 461.9 Ermias Hutchins 07/20/2011 - Propionate nostril in am Rick Desai,[facility] 10/04/2011 50mcg/Act Suspension Butrans topical q week 4units 726.19 Ermias Hutchins 07/18/2011 - 5mcg/HR [facility] 10/04/2011 Patches Weekly Ventolin HFA 2 puffs po qid 1units Ermias Hutchins 03/15/2011 - prn [facility] 09/10/2012 108(90Base) mcg/ac Aerosol Verapamil HCL ER 1 po qd 30caps 346.90 Ermias Hutchins 07/26/2010 - Rick Desai,[facility] 12/13/2012 120mg Caps ER 24HR Tylenol/Codeine #4 2 tablets by 240tabs Joshua Samuels NP 06/14/2010 - mouth every four 06/19/2014 300-60mg Tablets hours as needed per pt. request to send early to be filled but hold until due date Fluticasone 1 spray each 1bottle Ermias Hutchins 02/15/2010 - Propionate nostril in am prn Rick Desai,[facility] 07/18/2011 50mcg/Act Suspension Verapamil HCL CR 1 tab po daily 30caps 346.90 Seng 01/14/2010 - Rick Lopez 07/26/2010 100mg Caps ER 24HR Verapamil HCL ER 1 po qd 30caps 346.90 Ermias Hutchins 12/30/2009 - Rick Desai,[facility] 01/14/2010 180mg Caps ER 24HR Fiorinal/Codeine #3 1-2 four times a 75caps G43.009 Korina Meadows MD 2009 - day as needed, 05/29/2018 32-704-78-30mg maximum 3 days Capsules per week Simvastatin 1 tablet po qhs 346.90 Ermias Hutchins 09/28/2009 - 10mg Rick Desai,[facility] 09/28/2009 Tablets Fexofenadine HCL take one tablet 60tabs J45.909 Ermias Hutchins 08/16/2009 - by mouth twice a Rick Desai,[facility] 05/04/2017 60mg Tablets day as needed Zocor 1 tablet po 30tabs 346.90 [place], 08/16/2009 - 10mg Tablets Rick Danielle 09/28/2009 dialy Verapamil HCL CR 1 tab po daily 30caps 346.90 [place], 07/15/2009 - Rick Danielle 12/30/2009 100mg Caps ER 24HR Amoxicillin/Clavula Unknown - [place] Potassium 05/01/2018 875-125mg Tablets Benzonatate take one or two Unknown - 100mg capsules every 8 04/23/2018 Capsules hours as needed for cough. (rx'd by urgent care) Azithromycin two tabs day one, Unknown - 250mg one daily till 03/26/2018 Tablets gone (rx' by urgent care) Prednisone one tab daily for Unknown - 20mg 4 days (rx'd by 03/26/2018 Tablets urgent care) Benzonatate take one or two Unknown - 100mg capsules every 8 03/02/2015 Capsules hours as needed for cough. Doxycycline Hyclate one tablet twice Unknown - daily for 10 03/11/2015 100mg Capsules days. Benzonatate one by mouth 30caps Unknown - 200mg three times daily 07/16/2014 Capsules as needed for cough Prednisone take 3 po qam x 4 20tabs Unknown - 20mg days 04/11/2013 Tablets Doxycycline Hyclate bid po 20caps Unknown - 08/06/2013 100mg Capsules Proair HFA 2 puffs po q4h 1units Unknown - prn 08/26/2014 108(90Base) mcg/Act Aerosol Zolpidem Tartrate 1 tab by mouth 30tabs G47.00 Zsofia Cliff, - every night at [facility] 04/23/2018 10mg Tablets bedtime as needed Yzdkbrzbby-Xqkn-Pnx 2 tablets po qid 240caps Ermias Hutchins - feimonet Desai M.D.,[facility] 11/22/2009 50-325-40mg Capsules Francia-D 12 Hour 1 po bid as 60tabs J45.909 Ermias Hutchins - oliverio Desai M.D.,[facility] 10/24/2016 60-120mg Tablets ER 12HR Proair HFA prn only in the Unknown - winter 03/15/2011 Fexofenadine HCL take one tablet 60tabs Unknown - by mouth twice a 08/16/2009 60mg Tablets day as needed Tpxecbseds-Nwyu-Hdn 2 tablets po qid 120caps [facility], - srinivasan Danielle M.D. 08/16/2009 50-325-40mg Capsules Tylenol With 2 tablets po 40tabs Ermias Hutchins - Codeine #4 every four hours Rick Desai,FACP 06/14/2010 300-60mg as needed mdd=8 Tablets May give emergency supply Lidoderm Patch 1-2 patches qd 1Box Ermias Hutchins - 5% Rick Desai,FACP 08/26/2014 Patches on for 12h off for 12h prn Medications Administered in Office Medication SIG Qnty Indications Ordering Provider Date Toradol Injection 15MG Nurse Visit A 09/19/2018 Injection Toradol Injection 15MG Nurse Visit A 08/07/2018 Injection No Injection Nurse Visit A 07/23/2018 Injection Shingrix pharmacy administered Unknown 04/26/2018 Injection Immunizations CPT Code Status Date Vaccine Lot # [id number] Given 01/14/2018 Zoster (Shingles) Vaccine (HZV), Recombinant, Subunit, Adjuvanted [id number] Given 11/02/2011 Zoster (Zostavax) [id number] Refused 01/26/2011 Flu Mist Vaccine, Live For Intranasal Use Vital Signs Date Vital Result Comment 09/19/2018 2:45pm Height 62.5 inches 5'2.50" Weight [...] H/L Range Note Urine Culture And 04/24/2018 [facility] Urine SEE RESULT 1 , [address] Culture BELOW [place], [place] [id number] [phone] Poc Urinalysis 04/24/2018 [facility] Poc Glucose, Negative Negative [address] Urine [place], [place] [id number] [phone] Poc Bilirubin, Urine Negative Negative Poc Ketone, Urine Negative Negative Poc Specific [place], Urine 1.010 N 1.010-1.030 Poc Blood, Urine Trace-intact Abnormal Negative Poc pH, Urine 6.0 N 5-9 Poc Protein, Urine Negative Negative Poc Urobilinogen, Urine 0.2 Negative Poc Nitrite, Urine Negative Negative Poc Leukocytes, Urine 1+ Abnormal Negative Poc Color, Urine Yellow Poc Clarity, Urine Clear 3 Order 03/11/2018 [facility] Nebulizer <pending> [address] Treatment [place], [place] [id number] [phone] Laboratory test 01/09/2018 [facility] Cytology SEE RESULT [address] BELOW [place], [place] [id number] [phone] Lipid Profile 07/26/2017 [facility] Triglycerides 154 mg/dL 6 (Trig/Chol/HDL) [address] [place] [address] [phone] Cholesterol 197 mg/dL 7 HDL Cholesterol 47.1 mg/dL 8 LDL Cholesterol 119 mg/dL 9 Comp Metabolic Panel 07/26/2017 [facility] Sodium 139 mmol/L N 139-[address] [place] [address] [phone] Potassium 4.3 mmol/L N 3.5-5.0 Chloride 103 [...] Egfr 110.5 >60 10 Laboratory test 07/26/2017 [facility] TSH (Thyroid 1.32 mcIU/mL N 0.34-5.60 [address] Stim Horm) [place] [address] [phone] Vitamin D Total 25(Oh) 17.1 ng/mL Low 20-50 12 Hemoglobin A1c (Glyco HGB) 5.5 % N 4.0-5.6 13 Laboratory test 02/22/2017 [facility] Vitamin D 23.8 ng/mL N 20-[address] Total 25(Oh) [place] [address] [phone] Laboratory test 09/06/2016 [facility] Vitamin D 21.9 ng/mL Low 30-[address] Total 25(Oh) [place] [address] [phone] CBC Auto Diff 09/06/2016 [facility] White Blood 7.3 N 3.5- 10.[address] Count 10^3/[place] [address] [phone] Red Blood Count 4.34 10^6/uL N 4.0-5.4 [...] % 0.1 N Basic Metabolic Panel 07/17/2016 [facility] Sodium 135 mmol/L N 133-[address] [place] [address] [phone] Potassium 4.3 mmol/L N 3.5-5.0 Chloride 102 mmol/L N 101-111 Co2 Carbon Dioxide 27 mmol/L N 22-32 Anion Gap 6 mmol/L N 2-11 Glucose 129 mg/dL High 70-100 Blood Urea Nitrogen 10 mg/dL N 6-24 Creatinine 0.67 mg/dL N 0.51-0.95 BUN/Creatinine Ratio 14.9 N 8-20 Calcium 9.6 mg/dL N 8.6-10.3 Egfr Non- 89.2 N >60 Egfr 114.7 N >60 14 Lipid Profile 07/17/2016 [facility] Triglycerides 104 mg/dL N 15 (Trig/Chol/HDL) [address] [place] [address] [phone] Cholesterol 257 mg/dL N 16 HDL Cholesterol 53.3 mg/dL N 17 LDL Cholesterol 183 mg/dL N 18 Laboratory test 07/11/2016 [facility] Hemoglobin A1c 5.4 % N Less than [address] (Glyco HGB) 6.0 [place] [address] [phone] Laboratory test 07/11/2016 [facility] Vitamin D Total 11.9 Low 30-[address] 25(Oh) ng/[place] [address] [phone] Laboratory test 07/23/2015 [facility] Vitamin D Total < 7.0 Low 30-[address] 25(Oh) ng/[place] [address] [phone] Laboratory test 02/09/2015 [facility] Cholesterol 236 N [address] mg/[place] [address] [phone] LDL Cholesterol Direct 155 mg/dL N 21 Hemoglobin A1c (Glyco HGB) 5.6 % N Less than 6.0 22 Comp Metabolic Panel 08/25/2014 [facility] Sodium 136 mmol/L N 133-[address] [place] [address] [phone] Potassium 4.0 mmol/L N 3.5-5.0 Chloride 103 [...] N >60 23 CBC Auto Diff 08/25/2014 [facility] White Blood 7.3 10^3/uL N 4.8-10.[address] [place] [address] [phone] Red Blood Count 4.41 10^6/uL N 4.0-5.4 [...] Cells % 0 N Laboratory test 08/06/2013 [facility] Throat Culture (SEE NOTE) [address] [place] [address] [phone] CBC Auto Diff 07/25/2013 [facility] White Blood 10.5 N 4.8-[address] Count 10^3/uL .8 [place] [address] [phone] Red Blood Count 4.30 10^6/uL N 4.0-5.4 [...] % 0 N Comp Metabolic Panel 07/25/2013 [facility] Sodium 135 mmol/L N 133-[address] [place] [address] [phone] Potassium 3.8 mmol/L N 3.7-5.6 Chloride 102 [...] 124.4 N >60 26 Rapid Influenza 04/08/2013 [facility] Rapid Influenza (SEE NOTE ) 27 A B Antigen [address] [place] [address] [phone] Comp Metabolic 04/08/2013 [facility] Sodium 132 mmol/L Low 133 -[address] 5 [place] [address] [phone] Potassium 3.8 mmol/L 3.5-5.0 Chloride 102 mmol/L [...] 110.1 >60 28 CBC Auto Diff 04/08/2013 [facility] White Blood 5.7 10^3/uL 4.8-10.[address] [place] [address] [phone] Red Blood Count 4.47 10^6/uL 4.0-5.4 Hemoglobin [...] Cells % 0.1 Urine Culture And 11/30/2012 [facility] Urine Culture (SEE NOTE ) [address] [place] [address] [phone] Vitamin D, 25 12/13/2011 [facility] 25-Hydroxy <4.0 ng/mL () Hydroxy [address] Vitamin D2 [place] [address] [phone] 25-Hydroxy Vitamin D3 25 ng/mL () 25-Hydroxy Vitamin D Total 25 ng/mL () 30 PTH Intact, Inc 12/13/2011 [facility] PTH Intact 4.7 PMOL/L 1.3-9.3 Total Calcium [address] [place] [address] [phone] Calcium For Pthi 9.5 mg/dL 8.1-9.9 31 Lipid Profile 10/02/2011 [facility] Triglyceride 196 mg/dL 40 -200 (Trig/Chol/HDL) [address] [place], [place] [address] [phone] Cholesterol 160 mg/dL Less Than 200 32 High Density Lipoprotein 43 mg/dL 40-60 33 Cholesterol/HDL Ratio 3.72 AVERAGE 1-4.44 Low Density Lipoprotein 78 mg/dL Less Than 100 34 Basic Metabolic Panel 10/02/2011 [facility] Sodium 135 mmol/L 135-[address] [place] [address] [phone] Potassium 4.2 mmol/L 3.5-5.0 Chloride 101 mmol/L 101-111 Co2 (Carbon Dioxide) 28.0 mmol/L 22-32 Anion Gap 6.0 mmol/L 2-11 35 Glucose 120 mg/dL High 70-100 BUN 14 mg/dL 6-24 Creatinine 0.7 mg/dL 0.50-1.40 One Over Creatinine 1.42 BUN/Creatinine Ratio 20.0 8-20 Calcium 9.4 mg/dL 8.1-9.9 eGFR Non- 85.9 > 60 eGFR 110.5 > 60 36 Laboratory 10/02/2011 [facility] Hepatitis C Nonreactive Nonreactive test finding [address] [place] [address] [phone] Urine Culture 02/23/2010 [facility] Urine Culture NG 37 & Sensitivi [address] [place] [address] [phone] Surgical 10/05/2009 [facility] Surgical 38 Pathology [address] [facility] Pathology --- <[place] [address] NOTE> [phone] Lipid Profile 09/27/2009 [facility] Triglyceride 159 mg/dL 40 -200 (Trig/Chol/HD [address] L) [place] [address] [phone] Cholesterol 220 mg/dL High Less Than 200 39 High Density Lipoprotein 45 mg/dL 40-60 40 Cholesterol/HDL Ratio 4.89 AVERAGE High 1-4.44 Low Density Lipoprotein 143 mg/dL High Less Than 100 41 Laboratory test 09/27/2009 [facility] CPK (Creatine 51 U/L 0- 170 finding [address] [facility] Kinase) [place] [address] [phone] Comp Metabolic 09/27/2009 [facility] Sodium 136 135-[address] mmol/[place] [address] [phone] Potassium 3.8 mmol/L 3.5-5.0 Chloride 101 mmol/L [...] 111.3 > 60 46 Urinalysis W/Microscopic 09/22/2009 [facility] Ua Color YELLOW Yellow [address] [place] [address] [phone] Appearance-Urine CLEAR Clear Specific [place]-Ur 1.014 1.010-1.030 Esterase-Urine NEGATIVE Negative Nitrite NEGATIVE Negative Smngwjdwuczo-Wx-WDH NEGATIVE Negative Protein-Urine NEGATIVE Negative PH-Urine 5.5 5-9 Blood-Urine NEGATIVE Negative Ketones-Urine NEGATIVE Negative Bilirubin-Ur NEGATIVE Negative Glucose-Urine NEGATIVE Negative WBC-Urine 0-2 0-5 RBC-Urine 0-2 0-2 Ursc-1 09/12/2009 [facility] Ampicillin 4 S 47 [address] [place] [address] [phone] Amikacin <=2 S Ciprofloxacin <=0.25 S Ceftriaxone <=1 S Cefazolin <=4 S Nitrofurantoin <=16 S Gentamicin <=1 S Imipenem <=1 S Levofloxacin <=0.12 S Trimeth-Sulfa <=20 S Ceftazidime <=1 S Tigecycline <=0.5 S Piperacillin/Tazobactam <=4 S Urine Culture & 09/12/2009 [facility] Urine Culture ESCHERICHIA 48 S[address] [facility] [place] [address] [phone] Urinalysis 09/12/2009 [facility] Ua Color YELLOW Yellow W/Microscopic [address] [place] [address] [phone] Appearance-Urine CLEAR Clear Specific [place]-Ur 1.017 1.010-1.030 Esterase-Urine 2+ Abnormal Negative Nitrite NEGATIVE Negative Qvavlnewemqy-Ka-XPB NEGATIVE Negative Protein-Urine NEGATIVE Negative PH-Urine 5.5 5-9 Blood-Urine 1+ Abnormal Negative Ketones-Urine NEGATIVE Negative Bilirubin-Ur NEGATIVE Negative Glucose-Urine NEGATIVE Negative WBC-Urine TNTC Abnormal 0-5 RBC-Urine 0-2 0-2 Mucus Urine SMALL None Epith Cells-Ur FEW None Bacteria-Urine 1+ None Lipid Profile 07/16/2009 [facility] Triglyceride 107 mg/dL 40 -200 (Trig/Chol/HDL) [address] [place] [address] [phone] Cholesterol 272 mg/dL High Less Than 200 49 High Density Lipoprotein 48 mg/dL 40-60 50 Cholesterol/HDL Ratio 5.67 AVERAGE High 1-4.44 Low Density Lipoprotein 203 mg/dL High Less Than 100 51 Comp Metabolic Panel 07/16/2009 [facility] Sodium 138 mmol/L 135-145 [address] [place] [address] [phone] Potassium 4.1 mmol/L 3.5-5.0 Chloride 105 mmol/L [...] 66.3 > 60 56 CBC With 07/16/2009 [facility] White Blood 3.8 CUMM Low 4.8- 10.8 Electronic Diff [address] [place] [address] [phone] Red Cell Count 4.03 CUMM Low 4.2-5.4 [...] Abs Basophils 0 0-0.2 Urinalysis W/Microscopic 07/16/2009 [facility] Ua Color YELLOW Yellow [address] [place] [address] [phone] Appearance-Urine CLEAR Clear Specific [place]-Ur 1.018 1.010-1.030 Esterase-Urine NEGATIVE Negative Nitrite NEGATIVE Negative Qnwajkhmjkko-Yo-BIL NEGATIVE Negative Protein-Urine NEGATIVE Negative PH-Urine 6.0 5-9 Blood-Urine NEGATIVE Negative Ketones-Urine NEGATIVE Negative Bilirubin-Ur NEGATIVE Negative Glucose-Urine NEGATIVE Negative RBC-Urine 0-2 0-2 Epith Cells-Ur RARE None C Peptide 07/16/2009 [facility] C-Peptide ng/mL 1.8 ng/mL 0.9 -4.[address] [place] [address] [phone] C-Peptide pmol/L 600 pmol/L [phone] 57 1 [id number] 2 SEE RESULT BELOW Name: DUTCH LINTON : [address]: Singh Blackburn MD Acct: [id number] Unit: [id number] AGE: 62 Location: [facility] Re04/24/18 SEX: F Status: DEP ER SPEC: [id number] ALFREDO: 04/24/[address]: Marzena CACERES REQ: [id number] RECD: 04/25/18 STATUS: MURALI MORENO DR: Ermias Blackburn MD _ SOURCE: URINE SPDESC: ORDERED: Urine Culture COMMENTS: [id number] Procedure Result Reported Site Urine Culture Final 04/27/18- 925 ML Organism 1 KLEBSIELLA PNEUMONIAE [place] Count >100,000 (Many) CFU/ML 1. KLEBSIELLA PNEUMONIAE [...] . END OF REPORT DEPARTMENT OF PATHOLOGY, [address] [place] [address] Shiva Calabrese M.D. Director [facility] # [id number] 3 Automatic Vulcanizing Operator: [id number] 4 02 SAT @ 99% after treatment, pt tolerated well 5 SEE RESULT BELOW Name: DUTCH LINTON : [address]: Portillo Coronado NP Acct: [id number] Unit: [id number] AGE: 62 Location: [facility] Re01/09/18 SEX: F Status: REG REF SPEC: [id number] ALFREDO: 01/09/18 [facility] DR: Portillo Coronado NP REQ: [id number] RECD: 01/09/18 STATUS: SOUT _ ORDERED: TP IMAGE ANALYS, HPV/Thin Prep COMMENTS: [id number] Negative for Intraepithelial lesion or Malignancy Date Time Test Result Flag (u) Normal Range 01/09/18 1547 @ HPV RNA Negative Negative @ @ [...] was evaluated with the assistance of the [employer] Test Imaging System. Due to cytologic findings at the web production designer microscope, comprehensive manual rescreening by a Forensic Psychologist may be required. The Pap Smear is [...] years. END OF REPORT DEPARTMENT OF PATHOLOGY, [address] [place] [address] Shiva Calabrese M.D. Director [facility] # [id number] Desirable: <150 Borderline High: 150-199 High: [...] in selective patients <6.0%. Please refer to [employer] diabetic care guidelines for further [...] and in selective patients <6.0%.Please refer to [employer] Diabetic care guidelines for further information. 20 Desirable <200 Borderline high 200-239 High >239 21 Desirable: <100 mg/dL Near Optimal: 100-129 mg/dL Borderline High: 130-159 mg/dL High: 160-189 mg/dL Very High: >189 mg/dL 22 Therapeutic target for the treatment of diabetes Mellitus patients is <7% HBA1C, and in selective patients <6.0%.Please refer to [employer] Diabetic care guidelines for further [...] <15 (or dialysis) 24 RUN DATE: 08/08/13 [facility] LAB LIVE PAGE 1 RUN TIME: 25[address], [place] [address] Specimen Inquiry Name: DUTCH LINTON : [address]: Roshan Desai MD Acct: [id number] Unit: [id number] AGE: 58 Location: [facility] Re08/06/13 SEX: F Status: REG REF SPEC: [id number] ALFREDO: 08/06/13-15[address] [facility] [address]: Ermias Desai MD REQ: [id number] RECD: 08/06/13 STATUS: COMP _ SOURCE: THROAT SPDESC: ORDERED: Throat Culture QUERIES: Medent Number [id number] Procedure Result Verified Site Throat Culture Final 08/08/13- 1148 ML Organism 1 NORMAL LUIGI Quantity 2+ END OF REPORT * ML=Testing performed at Main Lab DEPARTMENT OF PATHOLOGY, [address] [place] [address] Shiva Calabrese M.D. Director [facility] Permit #[id number] [address] De Jesus's office on Backline [phone]~Patient waiting in lab for further in Because [...] <15 (or dialysis) 27 RUN DATE: 04/08/13 [facility] LIVE PAGE 1 RUN TIME: [address] [place] [address] Specimen Inquiry Name: FELICITAS LINTONJUDY Paiz : [address]: Pietro Pritchard DO Acct: [id number] Unit: [id number] AGE: 57 Location: ED Re04/08/13 SEX: F Status: REG ER SPEC: [id number] ALFREDO: 04/08/[address]: Pietro Pritchard DO REQ: [id number] RECD: 04/08/13 STATUS: MURALI MORENO DR: Ermias Desai MD _ SOURCE: SHARMAINE SPDESC: ORDERED: Rapid Flu A B Procedure Result Verified Site Rapid Influenza A B Antigen Final 04/08/13- 2242 ML Organism 1 Negative Influenza A B Antigen testing by enzyme immunoassay. Cell culture testing can be performed to confirm negative test results and to assist in detecting other viruses that can produce similar clinical symptoms. Please notify Microbiology Lab if further testing is desired. END OF REPORT * ML=Testing performed at Main Lab DEPARTMENT OF PATHOLOGY, [address] [place] [address] Shiva Calabrese M.D. Director [facility] Permit #[id number] 28 Because ethnic data is not always [...] <15 (or dialysis) 29 RUN DATE: 12/03/12 [facility] LIVE PAGE 1 RUN TIME: [address] [place] [address] Specimen Inquiry Name: DUTCH LINTON : [address]: Alvaro Tobar MD Acct: [id number] Unit: [id number] AGE: 57 Location: [facility] Re11/30/12 SEX: F Status: DEP ER SPEC: [id number] ALFREDO: 11/30/12-1315 [facility] [address]: Alvaro Tobar MD REQ: [id number] RECD: 12/01/12-1209 STATUS: MURALI MORENO DR: CASTILLO Desai MD _ SOURCE: URINE SPDESC: ORDERED: Urine Culture Procedure Result Verified Site Urine Culture Final 12/03/12- 0847 ML Organism 1 ESCHERICHIA COLI [place] Count >100,000 (Many) CFU/ML 1. ESCHERICHIA COLI [...] performed at Main Lab DEPARTMENT OF PATHOLOGY, [address] [place] [address] Shiva Calabrese M.D. Director [facility] Permit #[id number] 30 -- REFERENCE VALUE -- 25-HYDROXY D TOTAL (D2+D3) Optimum levels in the normal population are 25-80 Test Performed by: [facility] - [address] [address] Manager Spring: Adrien Short III, M.D. 31 Please note [...] (<1,000 CFU/mL) 38 ---- RUN DATE: 10/07/09 [facility] NMI LIVE PAGE 1 RUN TIME: 1313 Specimen Inquiry RUN USER: INTERFACE -- Name: DUTCH LINTON Status: REG REF Re10/05/09 Age/Sex: 54/F Unit#: [id number] Location: [address] [place] [address]. : [birth year] -- Specimen: [id number] SOUT Spec Date: 10/05/[address]: Marty garrett MD Spec Type: SURGICAL P Received: 10/06/09 Copies to: Shashi Burnette SPECIMEN RANDOM COLON BIOPSIES HISTORY PRE-OP DIAGNOSIS: Rule out microscopic colitis POST-OP DIAGNOSIS: To cecum, normal, biopsy taken CLINICAL INFORMATION: Change in bowel habits GROSS DESCRIPTION Specimen received in formalin labelled Dutch IzabelMj [place], Random Colon Biopsies and consists of two, nieves, soft tissue fragments measuring 0.6 x 0.3 x 0.1 cm. Submitted entirely, one cassette. DIAGNOSIS Colon, random biopsies: A) Large intestinal mucosa with no significant pathologic abnormality. B) No evidence of microscopic/lymphocytic colitis, collagenous colitis or other chronic inflammatory bowel process identified. Signed Electronically by: SHIVA CALABRESE MD 10/07/09 0595 -- -- DEPARTMENT OF PATHOLOGY, [address] [place] [address] [facility] Permit #[id number] Rick Ritter M.D. Fisher Line Dir padmini -- 39 CHOLESTEROL INTERPRETATION: Desirable: Less than [...] change was based on recommendations from the [employer]. 44 Please note change in [...] change was based on recommendations from the [employer]. 54 Please note change in [...] <15 (or dialysis) 57 Test Performed by: [facility] Dpt of Lab Med and Pathology [address] [place] [address] Manager Spring: Adrien Short III, M.D. Procedures Date Code Description Status 09/19/2018 98330 Admin Of Inj Completed 09/05/2018 88753161 Mammogram Completed 08/07/2018 52556 Admin Of Inj Completed 07/23/2018 66433 Admin Of Inj Completed 03/11/2018 10408 Inhalation TX For Acute Airway Obstruction Completed W/Nebulizer/Inhaler 09/04/2017 36152315 Mammogram Completed 09/01/2016 38826928 Mammogram Completed 08/30/2015 12223131 Mammogram Completed 07/19/2015 475912533 Bone Mineral Density Test Completed 08/26/2014 57313135 Mammogram Completed 08/25/2013 86254954 Mammogram Completed 09/12/2012 10916838 Mammogram Completed 10/25/2011 30023 Xray Knee 3 Views Completed 10/25/2011 35648 Rad Exam; Knee, Ap&L Completed 10/12/2011 394085084 Bone Mineral Density Test Completed 09/12/2011 68404198 Mammogram Completed 09/08/2010 77259299 Mammogram Completed 10/05/2009 94877960 Colonoscopy Completed 08/26/2009 07017846 Mammogram Completed Encounters Type Date Location Provider Dx Diagnosis Office Visit 05/28/2018 [facility] Korina Meadows, MD I10 Essential ( primary) 4:40p Medicine - Suite hypertension R G44.41 Drug-induced headache, not elsewhere classified, intractable G43.009 Migraine w/o aura, not intractable, w/o status migrainosus Office Visit 04/23/2018 4:00p [facility] Internal Korina Meadows, G43.009 Migraine w/o aura, Medicine - MD not intractable, Suite R w/o status migrainosus G44.41 Drug-induced headache, not elsewhere classified, intractable I10 Essential (primary) hypertension Office Visit 03/26/2018 2:40p [facility] Internal Korina Meadows J30.9 Allergic rhinitis, Medicine - Suite MD unspecified R J45.909 Unspecified asthma, uncomplicated Office Visit 03/11/2018 11:20a [facility] Internal Korina Meadows, J98.01 Acute bronchospasm Medicine - MD Suite R Office Visit 01/09/2018 2:40p [facility] Internal Portillo Coronado, Z00.00 Encntr for general Medicine - SCRIBING MACHINE OPERATOR adult medical exam Suite R w/o abnormal findings Z12.4 Encounter for screening for malignant neoplasm of cervix G43.009 Migraine w/o aura, not intractable, w/o status migrainosus R53.83 Other fatigue E78.5 Hyperlipidemia, unspecified M54.5 Low back pain E55.9 Vitamin D deficiency, unspecified M81.0 Age-related osteoporosis w/o current pathological fracture Office Visit 05/04/2017 3:40p [facility] Internal Portillo Coronado, G43.009 Migraine w/o aura, Medicine - SCRIBING MACHINE OPERATOR not intractable, Suite R w/o status migrainosus G47.00 Insomnia, unspecified E55.9 Vitamin D deficiency, unspecified M81.0 Age-related osteoporosis w/o current pathological fracture E78.5 Hyperlipidemia, unspecified Office Visit 12/08/2016 3:40p [facility] Internal Ermias Hutchins T48.1x5A Adverse effect Isaac Desai M.D.,FACP of skeletal Suite R muscle relaxants, init encntr T40.2x5A Adverse effect of other opioids, initial encounter M54.5 Low back pain Office Visit 11/13/2016 8:20a [facility] Internal Ermias Hutchins T48.1x5A Adverse effect Isaac Desai M.D.,FACP of skeletal Suite R muscle relaxants, init encntr T40.2x5A Adverse effect of other opioids, initial encounter Office Visit 10/25/2016 1:00p [facility] Internal Portillo Coronado, M54.5 Low back pain Medicine - Suite R SCRIBING MACHINE OPERATOR E55.9 Vitamin D deficiency, unspecified G47.00 Insomnia, unspecified G43.009 Migraine w/o aura, not intractable, w/o status migrainosus M81.0 Age-related osteoporosis w/o current pathological fracture Office Visit 10/05/2016 12:10p [facility] Internal Ermias Hutchins M25.511 Pain in right Isaac Desai M.D.,FACP shoulder Suite R Office Visit 09/06/2016 11:00a [facility] Internal Portillo Coronado, Z00.01 Encounter for Medicine - SCRIBING MACHINE OPERATOR general adult Suite R medical exam w abnormal findings G43.009 Migraine w/o aura, not intractable, w/o status migrainosus M81.0 Age-related osteoporosis w/o current pathological fracture E55.9 Vitamin D deficiency, unspecified Z13.1 Encounter for screening for diabetes mellitus Z13.220 Encounter for screening for lipoid disorders Z00.00 Encntr for general adult medical exam w/o abnormal findings Office Visit 01/05/2016 4:00p [facility] Internal Dada Be, J45.909 Unspecified asthma, Medicine - AMMONIA WORKER uncomplicated Suite R J45.901 Unspecified asthma with (acute) exacerbation Office Visit 07/23/2015 3:40p [facility] Internal Ermias Hutchins M80.00xA Age-rel Isaac Desai M.D.,FACP osteopor w Suite [facility] S22.42xD Multiple fx of ribs, left side, subs for fx w routn heal Office Visit 03/11/2015 9:30a [facility] Internal Dada Be, J06.9 Acute upper Medicine - Suite AMMONIA WORKER respiratory R infection, unspecified R05 Cough Office Visit 03/02/2015 1:00p [facility] Internal Dada Be, J01.90 Acute sinusitis, Medicine - AMMONIA WORKER unspecified Suite R R05 Cough R50.9 Fever, unspecified Office Visit 02/01/2015 4:40p [facility] Internal Ermias Hutchins M25.511 Pain in right Medicine - Rick Desai,FACP shoulder Suite R Office Visit 11/17/2014 4:00p [facility] Internal Dada Be, AMMONIA WORKER 461.1 Sinusitis Acute Medicine - Frontal Suite R 346.10 Migraine Common W/O Intractable W/O Status Migrainosus 461.9 Sinusitis Acute Unspec Office Visit 08/26/2014 2:50p [facility] Internal Ermias Hutchins 726.19 Shoulder Medicine Minh Desai M.D.,FACP Disorders Other Suite R Spec 726.19 Shoulder Disorders Other Spec Office Visit 07/16/2014 2:00p [facility] Internal Dada Be, 338.21 Chronic Pain Due Medicine - AMMONIA WORKER To Trauma Suite R Office Visit 07/16/2014 2:00p [facility] Internal Dada Be, 780.52 Insomnia Medicine - AMMONIA WORKER Unspecified Suite R 465.9 URI Upper Respiratory Infections Acute Unspec Sites Office Visit 08/06/2013 2:40p [facility] Nydia Hutchins 462 Pharyngitis Acute Medicine - Marvin Desai M.D.,FACP 707.09 Pressure Ulcer, Other Site Office Visit 04/11/2013 4:00p [facility] Nydia Hutchins 466.0 Bronchitis Acute Isaac Desai M.D.,FACP Ccmob Office Visit 04/11/2013 3:40p [facility] Nydia Hutchins 719.41 Pain Joint Isaac Desai M.D.,FACP Shoulder Region Ccmob Office Visit 12/13/2012 10:00a [facility] Nydia Hutchins 726.19 Shoulder Medicine Minh Desai M.D.,FACP Disorders Other Ccmob Spec Office Visit 09/12/2012 12:37p [facility] Nydia Hutchins 719.41 Pain Joint Isaac Desai M.D.,FACP Shoulder Region Ccmob 723.1 Cervicalgia Office Visit 07/03/2012 2:40p [facility] Internal Ermias Hutchins 346.10 Migraine Common Isaac Desai M.D.,FACP W/O Intractable Ccmob W/O Status Migrainosus 733.09 Osteoporosis Other Office Visit 06/04/2012 [facility] Nydia Hutchins 726.19 Shoulder Disorders 10:30a Medicine - Marvin Desai M.D.,FACP Other Spec Office Visit 03/27/2012 [facility] Internal Ermias Hutchins 726.19 Shoulder Disorders 4:20p [facility] Other Spec Office Visit 02/19/2012 [facility] [place] Giles, 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 Office Visit 01/24/2012 [facility] Internal Ermias Hutchins 719.41 Pain Joint Shoulder 4:00p Medicine Minh Desai M.D.,[facility] Region 723.1 Cervicalgia Office Visit 01/10/2012 4:15p [facility] [place] 717.7 Chondromalacia Of Services Of RACQUEL Toussaint-Hebert Patella C.M.A. 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 Office Visit 10/25/2011 10:30a [facility] [place] Giles, 717.7 Chondromalacia Of Services Of Rick Patella C.M.A. 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 Unspec Ccmob Office Visit 07/18/2011 10:30a [facility] Nydia Hutchins 726.19 Shoulder Isaac Desai M.D.,FACP Disorders Other Ccmob Spec Office Visit 05/19/2011 4:20p [facility] Ermias Hutchins 726.19 Shoulder [facility] Rick Desai,FACP Disorders Other Ccmob Spec Office Visit 03/15/2011 4:40p DO Not Use [facility] Ermias Hutchins 466.0 Bronchitis Acute AT Kevin Desai M.D.,FACP Office Visit 01/26/2011 4:20p DO Not Use [facility] Ermias Hutchins 719.41 Pain Joint AT Kevin Desai M.D.,FACP Shoulder Region 723.1 Cervicalgia Office Visit 01/26/2011 4:00p DO Not Use [facility] Ermias Hutchins 780.52 Insomnia AT Kevin Desai M.D.,FACP Unspecified 346.10 Migraine Common W/O Intractable W/O Status Migrainosus Office Visit 10/26/2010 11:20a DO Not Use [facility] Ermias Hutchins 719.41 Pain Joint AT Kevin Desai M.D.,FACP Shoulder Region Office Visit 07/26/2010 11:20a DO Not Use [facility] Ermias Hutchins 346.10 Migraine Common AT Kevin Desai M.D.,FACP W/O Intractable W/O Status Migrainosus 401.1 Hypertension Benign Office Visit 07/26/2010 11:00a DO Not Use [facility] AT Ermias Desai, 724.2 Lumbago Kevin Cabrera,FACP 724.9 Back Disorders Other Unspec Office Visit 05/24/2010 4:00p DO Not Use [facility] Ermias Hutchins 461.9 Sinusitis Acute AT [facility] Unspec Office Visit 04/06/2010 1:00p DO Not Use [facility] Ermias Hutchins 726.19 Shoulder AT Kevin Desai M.D.,FACP Disorders Other Spec Office Visit 12/30/2009 4:00p DO Not Use [facility] Ermias Hutchins 346.10 Migraine Common AT Kevin Desai M.D.,FACP W/O Intractable W/O Status Migrainosus 726.19 Shoulder Disorders Other Spec 780.52 Insomnia Unspecified 724.9 Back Disorders Other Unspec 401.1 Hypertension Benign Office Visit 12/30/2009 3:40p DO Not Use [facility] Ermias Hutchins 346.10 Migraine Common AT Kevin Desai M.D.,FACP W/O Intractable W/O Status Migrainosus 726.19 Shoulder Disorders Other Spec 780.52 Insomnia Unspecified 724.9 Back Disorders Other Unspec 401.1 Hypertension Benign Office Visit 09/28/2009 3:40p DO Not Use [facility] Ermias Hutchins 847.1 Sprains & AT Kevin Desai M.D.,FACP Strains Thoracic 728.85 Spasm Muscle Office Visit 08/18/2009 3:00p DO Not Use [facility] AT Shashi Marrero, 724.2 Lumbago Kevin Cabrera 724.2 Lumbago 723.1 Cervicalgia 723.1 Cervicalgia 726.19 Shoulder Disorders Other Spec 726.19 Shoulder Disorders Other Spec 724.9 Back Disorders Other Unspec 724.9 Back Disorders Other Unspec Office Visit 08/16/2009 4:00p DO Not Use [facility] [place], 346.90 Migraine Unspec AT Kevin Danielle M.D. W/O Intractable W/O Status Migrainosus 272.0 Hypercholesterolemia Pure Office Visit 07/15/2009 10:00a DO Not Use [facility] [place], 346.90 Migraine Unspec AT Kevin Danielle M.D. W/O Intractable W/O Status Migrainosus 724.5 Backache Unspec 239.3 Neoplasm Unspecified Breast 309.81 Posttraumatic Stress Disorder V11.2 History Personal Neurosis 312.4 Disturbance Of Conduct & Emotions Mixed Plan of Treatment Future Appointment(s):09/23/2018 10:40 am - Korina Meadows MD at [facility]
[2018-10-05 10:47] VITALS: BP 167/59
--- NOTE | 2018-10-05 11:25 | UC ---
Headache HPI - HPI Summary HPI Summary: This patient is a 63-year-old female who presents to the urgent care with a chief complaint of having a migraine headache. The patient reports that she has migraine headaches on and off but usually when he strains. The patient reports that she usually takes Toradol for the pain and usually resolves a migraine headache. Today she has a prescribed Toradol. She denies any fevers, denies any neck pain, denies any other complaint. - History Of Current Complaint Chief Complaint: UCHeadache Stated Complaint: HEADACHE Time Seen by Provider: 10/05/18 11:17 Hx Obtained From: Patient Hx Last Menstrual Period: Hysterectomy Onset/Duration: Sudden Onset Initially Headache Was: Mild Currently Pain Is: Severe Pain Intensity: 10 - Allergies/Home Medications Allergies/Adverse Reactions: Allergies Allergy/AdvReac Type Severity Reaction Status Date / Time Adhesive Tape [Paper Tape] Allergy Unknown Unknown Verified 10/05/18 10:56 Reaction Details adhesive tape Allergy Unknown Verified 10/05/18 10:56 Reaction Details bee venom protein (honey bee) Allergy Unknown Verified 10/05/18 10:56 Reaction Details buprenorphine Allergy Rash Verified 10/05/18 10:56 chlorpheniramine Allergy Unknown Verified 10/05/18 10:56 [From Tussionex] Reaction Details Egg Derived Allergy Rash Verified 10/05/18 10:56 hydrocodone [From Tussionex] Allergy Unknown Verified 10/05/18 10:56 Reaction Details latex Allergy Blisters Verified 10/05/18 10:56 nalbuphine [From Nubain] Allergy Unknown Verified 10/05/18 10:56 Reaction Details nitrofurantoin Allergy GI Upset Verified 10/05/18 10:56 [From Macrobid] Sulfa (Sulfonamide Allergy Unknown Verified 10/05/18 10:56 Antibiotics) Reaction Details Tetanus Vaccines and Toxoid Allergy GI Upset Verified 10/05/18 10:56 Tetracyclines Allergy Unknown Verified 10/05/18 10:56 Reaction Details cefaclor [From Ceclor] AdvReac GI Upset Verified 10/05/18 10:56 cephalexin [From Keflex] AdvReac GI Upset Verified 10/05/18 10:56 ciprofloxacin [From Cipro] AdvReac GI Upset Verified 10/05/18 10:56 ondansetron AdvReac Nausea And Verified 10/05/18 10:56 Vomiting BANDAIDS Allergy Unknown Unknown Uncoded 10/05/18 10:56 Reaction Details BEE STINGS Allergy Unknown Unknown Uncoded 10/05/18 10:56 Reaction Details GANDOCIN Allergy Unknown Unknown Uncoded 10/05/18 10:56 Reaction Details ADHESIVES Allergy Unknown Uncoded 10/05/18 10:56 Reaction Details PMH/Surg Hx/FS Hx/Imm Hx Previously Healthy: Yes Neurological History: Migraine Other History Of: Negative For: HIV, Hepatitis B, Hepatitis C, Anticoagulant Therapy - Surgical History Surgical History: Yes Surgery Procedure, Year, and Place: APPENDECTOMY-EXPLORATORY; [facility] - ; 2004 BREAST-LUMPECTOMY Rt; STAPH INFECTION W/ BREAST;TONSILECTOMY ( CHILD) , PARTIAL hysterectomy - Family History Known Family History: Positive: Cardiac Disease, Hypertension Family History: NON CONTRIBUTORY - Social History Alcohol Use: Rare Substance Use Type: None Smoking Status (MU): Never Smoked Tobacco Have You Smoked in the Last Year: No - Immunization History Most Recent Influenza Vaccination: allergy Review of Systems All Other Systems Reviewed And Are Negative: Yes Constitutional: Positive: Negative Skin: Positive: Negative Eyes: Positive: Negative ENT: Positive: Negative Respiratory: Positive: Negative Cardiovascular: Positive: Negative Gastrointestinal: Positive: Negative Genitourinary: Positive: Negative Motor: Positive: Negative Neurovascular: Positive: Negative Musculoskeletal: Positive: Negative Neurological: Positive: Headache Psychological: Positive: Negative Is Patient Immunocompromised?: No Physical Exam - Summary Physical Exam Summary: VITAL SIGNS: Reviewed. GENERAL: Patient is a well developed and nourished who is lying comfortable in the stretcher. Patient is not in any acute respiratory distress. HEAD AND FACE: No signs of trauma. No ecchymosis, hematomas or skull depressions. No sinus tenderness. EYES: PERRLA, EOMI x 2, No injected conjunctiva, no nystagmus. EARS: Hearing grossly intact. Ear canals and tympanic membranes are within normal limits. MOUTH: Oropharynx within normal limits. NECK: Supple, trachea is midline, no adenopathy, no JVD, no carotid bruit, no c- spine tenderness, neck with full ROM. CHEST: Symmetric, no tenderness at palpation LUNGS: Clear to auscultation bilaterally. No wheezing or crackles. CVS: Regular rate and rhythm, S1 and S2 present, no murmurs or gallops appreciated. ABDOMEN: Soft, non-tender. No signs of distention. No rebound no guarding, and no masses palpated. Bowel sounds are normal. EXTREMITIES: FROM in all major joints, no edema, no cyanosis or clubbing. NEURO: Alert and oriented x 3. No acute neurological deficits. Speech is normal and follows commands. SKIN: Dry and warm Vital Signs: Initial Vital Signs Temp 97.8 F 10/05/18 10:42 Pulse 59 10/05/18 10:42 Resp 18 10/05/18 10:42 BP 167/59 10/05/18 10:42 Pulse Ox 97 10/05/18 10:42 Headache Course/Dx - Course Course Of Treatment: The patient has her own medication (Toradol) and he would be given to her by us. Then the patient will be discharged home with follow-up with PCP. Patient is hemodynamically stable alert and oriented 3. - Differential Dx/Diagnosis Provider Diagnosis: Migraine headache Discharge - Sign-Out/Discharge Documenting (check all that apply): Patient Departure All imaging exams completed and their final reports reviewed: No Studies - Discharge Plan Condition: Stable Disposition: HOME Patient Education Materials: Migraine Headache (ED) Referrals: Korina Meadows MD [Primary Care Provider] - Additional Instructions: Follow-up with primary care physician in the next 2 days. Return to the urgent care or go to the emergency room if they have any the symptoms return sooner worsens. - Billing Disposition and Condition Condition: STABLE Disposition: Home
== END 2018-10-05 11:34 | disposition home or self-care (01) ==
LOC: UCEAST 10:17
DX: G43.909 Migraine, unspecified, not intractable, without status migrainosus (principal); Z88.2 Allergy status to sulfonamides; Z91.040 Latex allergy status
CPT/HCPCS: 96372; 99211; G0463

== ENCOUNTER 2019-04-26 19:11 | Emergency (ER) | payer OTHER, MEDICARE ==
--- OUTSIDE RECORDS SUMMARY | 2019-04-26 19:18 | XMS REPORT | Continuity of Care Document ---
:1955 External Reference #:[id number] Author Name Katerina Rubalcava N.P. (transmitted by agent of provider Beth Westfall) Address [address], [address] [place] [id number] Care Team Providers Name Role Phone Terence Laboy MD - Physical Care Team Information Heel [facility] Montana Giles MD - Orthopaedic Care Team Information Heel Cover Softener Surgery Korina Meadows M.D. - Family Medicine Care Team Information Heel Cover Softener Problems Active Problems Provider Date Thoracic back sprain Ermias Desai M.D.,FACP Onset: 09/28/2009 Spasm Ermias Desai M.D.,FACP Onset: 09/28/2009 Migraine without aura, not refractory Ermias Desai M.D.,FACP Onset: Personal history of primary malignant Ermias Desai M.D.,FACP Onset: neoplasm of breast Osteoporosis Ermias Desai M.D.,FACP Onset: 07/03/2012 Vitamin D deficiency Ermias Desai M.D.,FACP Onset: 07/29/2015 Social History Type Date Description Comments Sex Unknown Tobacco Use Start: Unknown Never Smoked Cigarettes ETOH Use 07/03/2012 Denies alcohol use ETOH Use 08/26/2014 Denies alcohol use She has had some problems with drinking in the past, and had a DUI. She denies any problems with alcohol. Recreational Drug Use Denies Drug Use Tobacco Use Start: Unknown Patient has never smoked Smoking Status Reviewed: 02/28/19 Patient has never smoked Exercise Type/Frequency Exercises rarely Allergies, Adverse Reactions, Alerts Active Allergies Reaction [...] past Buprenorphine rash from [place] 12/13/2012 Patch Spider Bites Severe 12/16/2018 Inactive Allergies Prednisone nausea 07/15/2009 Medications Active Medications SIG Qnty Indications Ordering Date Provider Fluticasone 2 sprays each 16gm J01.90 Katerina Rubalcava, 02/28/2019 Propionate nostril daily as N.P. 50mcg/Act needed Suspension Reglan One po every 8 hours 30tabs R11.2 Katerina Rubalcava, 02/28/2019 5mg Tablets prn nausea N.P. Florastor 1 by mouth twice a 60caps R11.2 Katerina Rubalcava, 02/28/2019 250mg day N.P. Capsules Vitamin D3 Ultra one by mouth once 12tabs Korinatara Meadows, 01/07/2019 Potency weekly 16463Cmps Tablets Ibuprofen 1 by mouth three 90tabs Other Ordering 12/02/2018 800mg times a day Provider Tablets Lactobacillus 1 by mouth every day 90tabs Other Ordering 12/02/2018 Provider Tablets Lisinopril 1 by mouth every day 90tabs Korina Meadows, 12/02/2018 10mg MD Tablets Butalbital/Aspirin/C 1-2 every 8 hours as 75caps G43.009 Lisa Hannon, affeine/Codeine needed for severe MD migraine. must last 59-787-12-30mg 28 days Capsules Ketorolac 2ml intramuscular x 4ml G43.009 Korina Meadows, 04/23/2018 Tromethamine 1, as needed 60mg/2ML migraine Solution Cetirizine HCL 1 by mouth every day 30tabs J30.9 Korinatara Meadows, 03/26/2018 10mg MD Tablets Azelastine HCL 2 sprays in each 30ml J30.9 Korinatara Meadows, 03/26/2018 (Nasal) nostril 2x/day as 137mcg/[place] needed Solution Ambien 1 tab by mouth at 30tabs G47.00 Korina Meadows, 05/04/2017 10mg Tablets bedtime as needed Baclofen take 1/2 tab by 45tabs Ermias Hutchins 12/08/2016 10mg Tablets mouth three times [place], daily M.D.,FACP Lidoderm apply topically 30units Ermias Hutchins 09/18/2016 5% Patches every day for 12 [place], hours to RT M.D.,FACP shoulder, work-related injury Latanoprost 1 drop in each eye Other Ordering 07/14/2015 0.005% at bedtime Provider Solution Freestyle Lite Blood check fingerstick 1units Ermias Hutchins 07/28/2013 Glucose Monitoring daily hypoglycemic [place], System M.D.,FACP Device Proair HFA 2 puffs by mouth 8.5units J45.909 Korina Meadows, 09/10/2012 four times a day as 108(90Base) mcg/Act needed Aerosol Freestyle Lite Test test BS up to three 100units Ermias Hutchins 11/24/2011 Strips times daily, last [place], Strips visit: 05/04/17 MButch,FACP Freestyle Lancets test BS up to three 100units Ermias Hutchins 11/24/2011 times daily, last [place], Misc visit: 05/04/17 M.D.,FACP Carisoprodol 1 tablets by mouth 120tabs M62.40 Zsofia Cliff, 350mg four times a day as [employer] Tablets needed Acetaminophen-Codein 2 tab every 4 hours Unknown e #4 as needed pain 300-60mg Tablets (work-related) Excedrin Migraine 1 tab twice a day as G43.009 Unknown needed for migraine [phone] Tablets Timolol Maleate instill one drop Unknown 0.5% into both eyes twice Solution daily (Timoptic) Imitrex every 2 hours as 18tabs G43.909 Korina Meadows, 50mg Tablets needed mdd4 mdd 4 G43.009 Ventolin HFA 2 puffs by mouth four 18gm Korina Meadows MD 108(90Base) mcg/Act times a day as needed Aerosol (rx'd by urgent care) Zioptan one drop in each eye Unknown 0.0015% Solution once daily in evening Rhopressa 1 gtt in both eyes once Unknown 0.02% Solution a day History Medications Vitamin D2 take 50,000 units 12tabs Korina Meadows MD 01/06/2019 - 2000Unit once a week 01/07/2019 Tablets Vancomycin HCL 1 cap 4 times a 40caps [facility], 12/26/2018 - 125mg day for 10 days M.D. 12/16/2018 Capsules Vancocin HCL 1 by mouth four 16caps Other Ordering 12/02/2018 - 125mg times a day Provider 12/16/2018 Capsules Potassium Chloride mix one packet 30units Other Ordering 12/02/2018 - daily in beverage Provider 12/08/2018 20Meq Packet of choice and drink No Injection Katerina Rubalcava NP Injection Medications Administered in Office Medication SIG Qnty Indications Ordering Provider Date Toradol Injection 15MG Katerina Rubalcava, N.P. 02/28/2019 Injection No Injection Nurse Visit A 02/07/2019 Injection No Injection Nurse Visit A 02/06/2019 Injection No Injection Nurse Visit A 12/19/2018 Injection No Injection Nurse Visit A 11/12/2018 Injection No Injection Nurse Visit A 11/08/2018 Injection No Injection Nurse Visit A 11/07/2018 Injection No Injection Nurse Visit A 10/17/2018 Injection Toradol Injection 15MG Nurse Visit A 10/15/2018 Injection Toradol Injection 15MG Nurse Visit A 08/07/2018 Injection No Injection Nurse Visit A 07/23/2018 Injection Shingrix pharmacy administered Unknown 04/26/2018 Injection Immunizations CPT Code Status Date Vaccine Lot # [id number] Given 01/14/2018 Zoster (Shingles) Vaccine (HZV), Recombinant, Subunit, Adjuvanted [id number] Given 11/02/2011 Zoster (Zostavax) [id number] Refused 01/26/2011 Flu Mist Vaccine, Live For Intranasal Use Vital Signs Date Vital Result Comment 02/28/2019 10:51am Height 62.5 inches 5'2.50" Weight 117.38 lb Heart Rate 73 /min BP Systolic Sitting 150 mmHg BP Diastolic Sitting 76 mmHg Body Temperature 99.2 F O2 % BldC Oximetry 98 % BMI (Body Mass Index) 21.1 kg/m2 01/06/2019 1:59pm Height 62.5 inches 5'2.50" Weight 130.00 lb Heart Rate 69 /min BP Systolic Sitting 154 mmHg Rue reg cuff BP Diastolic Sitting 73 mmHg Rue reg cuff O2 % BldC Oximetry 99 % BMI (Body Mass Index) 23.4 kg/m2 Results Test Acquired Date Facility Test Result H/L Range Note Laboratory test 01/25/2019 [facility] C Difficile SEE RESULT 1, [address] [place] [address] [phone] 1,25 Dihydroxy 01/24/2019 [facility] Calcitriol 67 pg/mL 18- 78 [address] [place] [address] [phone] Laboratory test 01/24/2019 [facility] Hemoglobin A1c 5.6 % Normal 4.0-5.[address] (Glyco HGB) [place] [address] [phone] Laboratory test 01/24/2019 [facility] Calcium 10.0 mg/dL Normal 8.6-10.[address] [place], [place] [id number] [phone] Pthi 01/24/2019 [facility] Calcium (PTH 9.9 mg/dL Normal 8.6- 10.[address] DRIVE Intact) [place] [address] [phone] PTH Intact 63.4 pg/mL Normal 12-88 Lipid Profile 01/24/2019 [facility] Triglycerides 134 mg/dL 5 (Trig/Chol/HDL) [address] [place] [address] [phone] Cholesterol 294 mg/dL 6 HDL Cholesterol 50.7 mg/dL 7 LDL Cholesterol 217 mg/dL 8 Laboratory test 01/06/2019 [facility] Hemoglobin A1c <pending> finding [address] (Glyco HGB) [place] [address] [phone] Laboratory test 01/06/2019 [facility] Calcium <pending> finding [address] [place] [address] [phone] Basic Metabolic 12/19/2018 [facility] Sodium 137 mmol/L Normal 135-[address] [place] [address] [phone] Potassium 4.0 mmol/L Normal 3.5-5.0 Chloride 105 mmol/L Normal 101-111 Co2 Carbon Dioxide 23 mmol/L Normal 22-32 Anion Gap 9 mmol/L Normal 2-11 Glucose 132 mg/dL High 70-100 Blood Urea Nitrogen 12 mg/dL Normal 6-24 Creatinine 0.68 mg/dL Normal 0.51-0.95 BUN/Creatinine Ratio 17.6 Normal 8-20 Calcium 10.4 mg/dL High 8.6-10.3 Egfr Non- 86.8 >60 Egfr 105.1 >60 9 CBC Auto 11/28/2018 [facility] White Blood 8.9 10^3/uL Normal 3.5-10.[address] [place] [address] [phone] Red Blood Count 3.82 10^6/uL Normal 3.70-4.87 Hemoglobin 12.4 g/dL Normal 12.0-16.0 Hematocrit 34 % Low 35-47 Mean Corpuscular Volume 90 fL Normal 80-97 Mean Corpuscular Hemoglobin 33 pg High 27-31 Mean Corpuscular HGB Conc 36 g/dL Normal 31-36 Red Cell Distribution Width 13 % Normal 10-15 Platelet Count 222 10^3/uL Normal 150-450 Mean Platelet Volume 8.2 fL Normal 7.4-10.4 Abs Neutrophils 6.9 10^3/uL Normal 1.5-7.7 Abs Lymphocytes 1.2 10^3/uL Normal 1.0-4.8 Abs Monocytes 0.7 10^3/uL Normal 0-0.8 Abs Eosinophils 0.0 10^3/uL Normal 0-0.6 Abs Basophils 0.0 10^3/uL Normal 0-0.2 Abs Nucleated RBC 0.0 10^3/uL Granulocyte % 77.7 % Lymphocyte % 13.6 % Monocyte % 8.4 % Eosinophil % 0.1 % Basophil % 0.2 % Nucleated Red Blood Cells % 0.0 Comp Metabolic 11/28/2018 [facility] Sodium 135 mmol/L Normal 135-[address] [place] [address] [phone] Potassium 2.8 mmol/L Low 3.5-5.0 Chloride 105 mmol/L Normal 101-111 Co2 Carbon Dioxide 21 mmol/L Low 22-32 Anion Gap 9 mmol/L Normal 2-11 Glucose 131 mg/dL High 70-100 Blood Urea Nitrogen 8 mg/dL Normal 6-24 Creatinine 0.50 mg/dL Low 0.51-0.95 BUN/Creatinine Ratio 16.0 Normal 8-20 Calcium 8.8 mg/dL Normal 8.6-10.3 Total Protein 6.0 g/dL Low 6.4-8.9 Albumin 3.9 g/dL Normal 3.2-5.2 Globulin 2.1 g/dL Normal 2-4 Albumin/Globulin Ratio 1.9 Normal 1-3 Total Bilirubin 0.90 mg/dL Normal 0.2-1.0 Alkaline Phosphatase 85 U/L Normal 34-104 Alt 56 U/L High 7-52 Ast 34 U/L Normal 13-39 Egfr Non- 123.8 >60 Egfr 149.8 >60 10 Laboratory test 11/28/2018 [facility] Magnesium 2.4 mg/dL Normal 1.9-2.[address] [place] [address] [phone] Laboratory test 11/27/2018 [facility] Lactic Acid 1.0 Normal 0.5-2.0 [address] mmol/[place] [address] [phone] CBC Auto Diff 11/27/2018 [facility] White Blood 11.9 High 3.5- 10.[address] Count 10^3/[place] [address] [phone] Red Blood Count 4.49 10^6/uL Normal 3.70-4.87 Hemoglobin 14.1 g/dL Normal 12.0-16.0 Hematocrit 40 % Normal 35-47 Mean Corpuscular Volume 90 fL Normal 80-97 Mean Corpuscular Hemoglobin 32 pg High 27-31 Mean Corpuscular HGB Conc 35 g/dL Normal 31-36 Red Cell Distribution Width 13 % Normal 10-15 Platelet Count 301 10^3/uL Normal 150-450 Mean Platelet Volume 7.5 fL Normal 7.4-10.4 Abs Neutrophils 9.3 10^3/uL High 1.5-7.7 Abs Lymphocytes 1.7 10^3/uL Normal 1.0-4.8 Abs Monocytes 0.9 10^3/uL High 0-0.8 Abs Eosinophils 0.0 10^3/uL Normal 0-0.6 Abs Basophils 0.1 10^3/uL Normal 0-0.2 Abs Nucleated RBC 0.0 10^3/uL Granulocyte % 77.6 % Lymphocyte % 14.0 % Monocyte % 7.6 % Eosinophil % 0.0 % Basophil % 0.8 % Nucleated Red Blood Cells % 0.1 Comp Metabolic Panel 11/27/2018 [facility] Sodium 131 mmol/L Low 135-[address] [place] [address] [phone] Chloride 97 mmol/L Low 101-111 Co2 Carbon Dioxide 23 mmol/L Normal 22-32 Glucose 132 mg/dL High 70-100 Blood Urea Nitrogen 12 mg/dL Normal 6-24 Creatinine 0.57 mg/dL Normal 0.51-0.95 BUN/Creatinine Ratio 21.1 High 8-20 Calcium 10.8 mg/dL High 8.6-10.3 Total Protein 7.4 g/dL Normal 6.4-8.9 Albumin 4.7 g/dL Normal 3.2-5.2 Globulin 2.7 g/dL Normal 2-4 Albumin/Globulin Ratio 1.7 Normal 1-3 Total Bilirubin 1.30 mg/dL High 0.2-1.0 Alkaline Phosphatase 91 U/L Normal 34-104 Alt 64 U/L High 7-52 Ast 37 U/L Normal 13-39 Egfr Non- 106.4 >60 Egfr 128.8 >60 12 Potassium 2.5 mmol/L Critical low 3.5-5.0 13 Anion Gap 11 mmol/L Normal 2-11 Laboratory test 11/27/2018 [facility] Lipase 91 U/L High 11.0- 82.[address] [place] [address] [phone] C Reactive Protein < 1.00 mg/L Normal <8.01 Magnesium 1.8 mg/dL Low 1.9-2.7 Amylase 76 U/L Normal 29-103 Troponin-I (TnI) 0.02 ng/mL <0.04 14 Urinalysis Profile 11/27/2018 [facility] Urine Color Straw [address] [place] [address] [phone] Urine Appearance Clear Urine Specific [place] 1.026 Normal 1.010-1.030 Urine pH 6.0 Normal 5-9 Urine Urobilinogen Negative Negative Urine Ketones 1+ Abnormal Negative Urine Protein Negative Negative Urine Leukocytes Negative Negative Urine Blood Negative Negative Urine Nitrite Negative Negative Urine Bilirubin Negative Negative Urine Glucose Negative Negative Laboratory test 11/27/2018 [facility] C Difficile SEE RESULT [address] [place] [address] [phone] Comp Metabolic 09/23/2018 [facility] Sodium 139 mmol/L Normal 135-[address] [place] [address] [phone] Potassium 4.4 mmol/L Normal 3.5-5.0 Chloride 107 mmol/L Normal 101-111 Co2 Carbon Dioxide 22 mmol/L Normal 22-32 Anion Gap 10 mmol/L Normal 2-11 Glucose 61 mg/dL Low 70-100 Blood Urea Nitrogen 31 mg/dL High 6-24 Creatinine 0.82 mg/dL Normal 0.51-0.95 BUN/Creatinine Ratio 37.8 High 8-20 Calcium 10.5 mg/dL High 8.6-10.3 Total Protein 7.3 g/dL Normal 6.4-8.9 Albumin 4.6 g/dL Normal 3.2-5.2 Globulin 2.7 g/dL Normal 2-4 Albumin/Globulin Ratio 1.7 Normal 1-3 Total Bilirubin 0.20 mg/dL Normal 0.2-1.0 Alkaline Phosphatase 103 U/L Normal 34-104 Alt 10 U/L Normal 7-52 Ast 11 U/L Low 13-39 Egfr Non- 70.0 >60 Egfr 84.7 >60 16 1 MICRO RECIEVED A VERBAL ORDER PER DOC 01/26/19 2 SEE RESULT BELOW Name: DUTCH LINTON : [address]: Avila Burciaga MD Acct: [id number] Unit: [id number] AGE: 63 Location: [facility] Re01/25/19 SEX: F Status: REG REF SPEC: [id number] ALFREDO: 01/25/19 [facility] DR: Avila Burciaga MD REQ: [id number] RECD: 01/25/19 STATUS: RES OTHR DR: Korina Meadows MD _ SOURCE: STOOL SPDESC: ORDERED: Joe DACOSTA COMMENTS: KAIT RECIEVED A VERBAL ORDER PER DOC 01/26/19 Procedure Result Reported Site Stool Specimen Description Final 01/26/19- 1134 ML Stool Color Brown Stool Form Nonformed Stool Consistency Mucoid Liquid C. difficile PCR PENDING * ML - Main Lab . END OF REPORT DEPARTMENT OF PATHOLOGY, [address] [place] [address] Shiva Calabrese M.D. Director [facility] # [id number] 3 ADDITIONAL INFORMATION This test was developed and its performance characteristics determined by [facility] in a manner consistent with CLIA requirements. This test has not been cleared or approved by the U.S. Food and Drug Administration. Test Performed by: [facility] [address] [place] [id number] Objective C Developer: Kiko Barrera M.D. Ph.D.; CLIA# [id number] 4 Therapeutic target for the treatment of diabetes mellitus patients is <7% HBA1C, and in selective patients <6.0%. Please refer to [employer] diabetic care guidelines for further information. 5 Desirable: <150 Borderline High: 150-199 High: 200-499 Very High: >500 6 Desirable: <200 Borderline High: 200-239 High: >239 7 Low: <40 Desirable: 40-60 High: >60 8 Desirable: <100 Near Optimal: 100-129 Borderline High: 130-159 High: 160-189 Very High: >189 9 Because ethnic data is not always readily [...] 15-29 5 Kidney failure <15 (or dialysis) 10 Because ethnic data is not always [...] 5 Kidney failure <15 (or dialysis) [address] [facility] Severe Sepsis and Septic Shock Management Bundle Measure requires all lactic acids initially measuring >2.0 mmol/L be repeated. 12 Because ethnic data is not always readily [...] 15-29 5 Kidney failure <15 (or dialysis) 13 Critical Result K:2.5 Called to [id number] at: 22:23:43 by:[email or web address] Read back by:[id number] 14 Troponin-I testing on Plasma Separator Tubes (PST) has a known false positive rate of 0.20-0.40%. All positive troponins reflex immediately to secondary confirmatory testing. Using the [employer] DxI 800 Access Immunoassay systems, the 99th percentile upper reference limit was demonstrated to be < 0.03 ng/mL. 15 SEE RESULT BELOW Name: FELICITAS LINTONIA : [address]: Batool Oden MD Acct: [id number] Unit: [id number] AGE: 63 Location: [place] [address] Re11/28/18 SEX: F Status: ADM IN SPEC: [id number] ALFREDO: 11/27/18-0010 [facility] DR: Trinh CACERES REQ: [id number] RECD: 11/28/18 STATUS: MURALI MORENO DR: Prudencio Meadows MD _ SOURCE: STOOL SPDESC: ORDERED: C. diff PCR, Stool Culture COMMENTS: Verbal to [id number] by [email or web address] at 0143 on 11/28/18. Results read back accurately. Procedure Result Reported Site Stool Culture Final 11/30/18- 1307 ML Result No enteric pathogens isolated Testing for Salmonella, Shigella, Aeromonas, Plesiomonas, Yersinia and Campylobacter are included in a Stool Culture. Vibrio spp not routinely tested for in a stool culture. If testing is desired, please request specifically when placing test order. Sensitivities not routinely performed on stool isolates, as antibiotics may prolong the carriage rate of bacteria. Please contact the microbiology lab if sensitivities are required. Stool Specimen Description Final 11/28/18- 0103 ML Stool Color Brown Stool Form Nonformed Stool Consistency Mucoid Shiga Toxin 1 2 Final 11/28/18- 1040 ML Organism 1 Negative Shiga Toxin 1 2 Immunochromatographic Assay CONTINUED ON NEXT PAGE DEPARTMENT OF PATHOLOGY, [address] [place] [address] Shiva Calabrese M.D. Director [facility] # [id number] Patient: DUTCH LINTON [id number] (Continued) Specimen: [id number] Collected: 11/27/18-9 Received: 11/28/18-36 (Continued) Procedure Result Reported Site Shiga Toxin 1 2 Final (continued) 11/28/18- 1040 C. difficile PCR Final 11/28/18- 014 ML Organism 1 027 Presumptive NEGATIVE Organism 2 Toxigenic C.diff POSITIVE * ML - Main Lab . END OF REPORT DEPARTMENT OF PATHOLOGY, [address] [place] [address] Shiva Calabrese M.D. Director [facility] # [id number] 16 Because ethnic data is not always readily [...] 15-29 5 Kidney failure <15 (or dialysis) Procedures Date Code Description Status 02/07/2019 01108 Admin Of Inj Completed 02/06/2019 17697 Admin Of Inj Completed 12/19/2018 22640 Admin Of Inj Completed 11/12/2018 49244 Admin Of Inj Completed 11/08/2018 98104 Admin Of Inj Completed 11/07/2018 34901 Admin Of Inj Completed 10/17/2018 76226 Admin Of Inj Completed 10/15/2018 87287 Admin Of Inj Completed 09/19/2018 53476 Admin Of Inj Completed 09/05/2018 10248874 Mammogram Completed 09/04/2017 37763519 Mammogram Completed 09/01/2016 [id number] Mammogram Completed 08/30/2015 72214000 Mammogram Completed 07/19/2015 [id number] Bone Mineral Density Test Completed 08/26/2014 91464672 Mammogram Completed 08/25/2013 [id number] Mammogram Completed 09/12/2012 10848545 Mammogram Completed 10/12/2011 [id number] Bone Mineral Density Test Completed 09/12/2011 [id number] Mammogram Completed 09/08/2010 19406034 Mammogram Completed 10/05/2009 [id number] Colonoscopy Completed 08/26/2009 79312500 Mammogram Completed Medical Devices Description No Information Available Encounters Type Date Location Provider Dx Diagnosis Office Visit 01/06/2019 [facility] Korina Meadows MD A04.72 Enterocolitis d/t 1:40p Medicine - [facility] Clostridium difficile, not spcf as recur N64.52 Nipple discharge N63.20 Unspecified lump in the left breast, unspecified quadrant Office Visit 12/16/2018 4:20p [facility] Internal Korina Meadows, A04.72 Enterocolitis d/t Medicine - MD Clostridium [facility] difficile, not spcf as recur E87.6 Hypokalemia Office Visit 11/30/2018 1:37p [facility] Sonu Cárdenas, A04.72 Enterocolitis d/t Assoc,tonia NUNEZ Clostridium Hospitalists difficile, not spcf as recur G43.009 Migraine w/o aura, not intractable, w/o status migrainosus Office Visit 11/29/2018 1:37p [facility] Sonu Cárdenas, A04.72 Enterocolitis d/t Assoc,tonia NUNEZ Clostridium Hospitalists difficile, not spcf as recur E87.6 Hypokalemia G43.009 Migraine w/o aura, not intractable, w/o status migrainosus I10 Essential (primary) hypertension Office Visit 11/28/2018 [facility] Nelsy Briggs, A41.9 Sepsis, 1:36p Assoc,tonia M.DMj unspecified Hospitalists organism A04.72 Enterocolitis d/t Clostridium difficile, not spcf as recur E87.6 Hypokalemia I10 Essential (primary) hypertension Office Visit 09/23/2018 10:40a [facility] Internal Korina Meadows MD I10 Essential (primary) Medicine - [facility] hypertension G43.009 Migraine w/o aura, not intractable, w/o status migrainosus M54.5 Low back pain Assessments Date Code Description Provider 02/28/2019 R11.2 Nausea with vomiting, unspecified Katerina Rubalcava, N.P. 02/28/2019 J01.90 Acute sinusitis, unspecified Katerina Rubalcava, N.P. 02/28/2019 G43.909 Migraine, unspecified, not intractable, Katerina Rubalcava, N.P. without status migrainosus 02/07/2019 G43.009 Migraine without aura, not intractable, Nurse Visit A without status migrainosus 02/06/2019 G43.009 Migraine without aura, not intractable, Nurse Visit A without status migrainosus 01/06/2019 A04.72 Enterocolitis due to Clostridium difficile, Korina Meadows MD not specified as recurrent 01/06/2019 N64.52 Nipple discharge Korina Meadows MD 01/06/2019 N63.20 Unspecified lump in the left breast, Korina Meadows MD unspecified quadrant 12/19/2018 G43.009 Migraine without aura, not intractable, Nurse Visit A without status migrainosus 12/16/2018 A04.72 Enterocolitis due to Clostridium difficile, Korina Meadows MD not specified as recurrent 12/16/2018 E87.6 Hypokalemia Korina Meadows MD 11/30/2018 A04.72 Enterocolitis due to Clostridium difficile, Sonu Cárdenas MD not specified as recurrent 11/30/2018 G43.009 Migraine without aura, not intractable, Sonu Cárdenas MD without status migrainosus 11/29/2018 A04.72 Enterocolitis due to Clostridium difficile, Sonu Cárdenas MD not specified as recurrent 11/29/2018 E87.6 Hypokalemia Sonu Cárdenas MD 11/29/2018 G43.009 Migraine without aura, not intractable, Sonu Cárdenas MD without status migrainosus 11/29/2018 I10 Essential (primary) hypertension Sonu Cárdenas MD 11/28/2018 A41.9 Sepsis, unspecified organism Nelsy Briggs M.D. 11/28/2018 A04.72 Enterocolitis due to Clostridium difficile, Nelsy Briggs M.D. not specified as recurrent 11/28/2018 E87.6 Hypokalemia Nelsy Briggs M.D. 11/28/2018 I10 Essential (primary) hypertension Nelsy Briggs M.D. 11/12/2018 G43.009 Migraine without aura, not intractable, Nurse Visit A without status migrainosus 11/08/2018 G43.009 Migraine without aura, not intractable, Nurse Visit A without status migrainosus 11/07/2018 G43.009 Migraine without aura, not intractable, Nurse Visit A without status migra 10/17/2018 G43.009 Migraine without aura, not intractable, Nurse Visit A without status migrainosus 10/15/2018 G43.009 Migraine without aura, not intractable, Nurse Visit A without status migra 09/23/2018 I10 Essential (primary) hypertension Korina Meadows MD 09/23/2018 G43.009 Migraine without aura, not intractable, Korina Meadows MD without status migra 09/23/2018 M54.5 Low back pain Korina Meadows MD 09/19/2018 G43.009 Migraine without aura, not intractable, Nurse Visit A without status migra Plan of Treatment Future Appointment(s):05/07/2019 10:20 am - JONES Barcenas at [facility] Internal Medicine - [facility]05/09/2019 3:00 pm - Travon Rojas M.D. at [facility]02/28/2019 - Katerina Rubalcava N.P.R11.2 Nausea with vomiting, unspecifiedNew Medication:Reglan 5 mg - One po every 8 hours prn nauseaFlorastor 250 mg - 1 by mouth twice a dayComments:For your nausea I have prescribed Reglan 5 mg. Take 1 tablet every 8 hours as needed. If this is nothelpful, please contact the office. For your diarrhea I have prescribed da probiotic Florastor, take1 twice daily.J01.90 Acute sinusitis, unspecifiedNew Medication:Fluticasone Propionate 50 mcg/Act - 2 sprays each nostril daily as neededComments:For your sinus infection: I sent a prescription for a steroid based nasal spray. Use 2 inhalations in each nostril once daily until your infection has cleared. You may find using saline nasal spray helpful.G43.909 Migraine, unspecified, not intractable, without status migrainosusComments:For your migraine you have received an injection of Toradol. This should help your headache. Functional Status Description No Information Available Mental Status Description No Information Available Referrals Refer to Reason for Referral Status Appt Date [facility] pt with chronic migraines and tension headaches, Sent likely medication overuse now, as she was previously on high doses of butalbital/acetaminophen/caffeine/codeine for many years (96 tablets a month, down to 60, over 6 months). Recently started on propranolol without ay improvement. She has had many adverse reactions to medications which she classifies as allergies, has a lot of anxiety and life stressors. no depending on toradol injections 2-3x/month Called referral office and it was denied, office thought pt would benefit more from [address] [place] [address] [phone]
[2019-04-26 19:25] VITALS: BP 162/79
[2019-04-26] MEDS ORDERED: Ketorolac *IM* INJ* 60 MG/2 ML VIAL IM ONE (19:42)
--- NOTE | 2019-04-26 19:47 | UC ---
Headache HPI - HPI Summary HPI Summary: 63-year-old female with history of migraine presents requesting administration of her ketorolac which is prescribed to her for her migraines. States she started with the migraine headache yesterday and was seen at her PCPs office and given an injection with improvement however this morning the headache returned and has been progressively worsening throughout the day. She states that the headache is her typical migraine and is associated with some photophobia and phonophobia. Denies visual disturbances, dizziness, vertigo, slurred or difficulty speaking, facial droop, numbness, tingling, or weakness of her extremities, nausea, or vomiting. - History Of Current Complaint Chief Complaint: UCHeadache Stated Complaint: MIGRAINE Time Seen by Provider: 04/26/19 19:37 Hx Obtained From: Patient Hx Last Menstrual Period: Hysterectomy Pain Intensity: 10 - Allergies/Home Medications Allergies/Adverse Reactions: Allergies Allergy/AdvReac Type Severity Reaction Status Date / Time Adhesive Tape [Paper Tape] Allergy Unknown Unknown Verified 04/26/19 19:26 Reaction Details adhesive Allergy Unknown Verified 04/26/19 19:26 Reaction Details adhesive tape Allergy Unknown Verified 04/26/19 19:26 Reaction Details bee venom protein (honey bee) Allergy Unknown Verified 04/26/19 19:26 Reaction Details buprenorphine Allergy Rash Verified 04/26/19 19:26 chlorpheniramine Allergy Unknown Verified 11/27/18 20:06 [From Tussionex] Reaction Details Egg Derived Allergy Rash Verified 04/26/19 19:26 hydrocodone [From Tussionex] Allergy Unknown Verified 04/26/19 19:26 Reaction Details latex Allergy Blisters Verified 04/26/19 19:26 nalbuphine [From Nubain] Allergy Unknown Verified 04/26/19 19:26 Reaction Details nitrofurantoin Allergy GI Upset Verified 04/26/19 19:26 [From Macrobid] Sulfa (Sulfonamide Allergy Unknown Verified 04/26/19 19:26 Antibiotics) Reaction Details Tetanus Vaccines and Toxoid Allergy GI Upset Verified 04/26/19 19:26 Tetracyclines Allergy Unknown Verified 04/26/19 19:26 Reaction Details cefaclor [From Ceclor] AdvReac GI Upset Verified 04/26/19 19:26 cephalexin [From Keflex] AdvReac GI Upset Verified 04/26/19 19:26 ciprofloxacin [From Cipro] AdvReac GI Upset Verified 04/26/19 19:26 ondansetron AdvReac Nausea And Verified 04/26/19 19:26 Vomiting GANDOCIN Allergy Unknown Unknown Uncoded 04/26/19 19:26 Reaction Details Home Medications: Home Medications Oseltamivir CAP* [Tamiflu CAP*] 75 mg PO BID 04/26/19 [History Confirmed ] PMH/Surg Hx/FS Hx/Imm Hx - Additional Past Medical History Additional PMH: Glaucoma Cardiovascular History: Hypertension Neurological History: Migraine Psychological History: Anxiety, Depression Other History Of: Negative For: HIV, Hepatitis B, Hepatitis C, Anticoagulant Therapy - Surgical History Surgical History: Yes Surgery Procedure, Year, and Place: APPENDECTOMY-EXPLORATORY; [facility]ST - ; 2004 BREAST-LUMPECTOMY Rt; STAPH INFECTION W/ BREAST;TONSILECTOMY ( CHILD) , PARTIAL hysterectomy - Family History Known Family History: Positive: Cardiac Disease, Hypertension Family History: NON CONTRIBUTORY - Social History Occupation: Retired Lives: With Family Alcohol Use: Rare Substance Use Type: None Smoking Status (MU): Never Smoked Tobacco Have You Smoked in the Last Year: No - Immunization History Most Recent Influenza Vaccination: allergy Most Recent Pneumonia Vaccination: never Review of Systems All Other Systems Reviewed And Are Negative: Yes Constitutional: Negative: Fever, Chills Skin: Negative: Rash Eyes: Positive: Photophobia. Negative: Blurred Vision, Diplopia ENT: Positive: Negative Respiratory: Positive: Negative Cardiovascular: Positive: Negative Gastrointestinal: Negative: Vomiting, Nausea Genitourinary: Positive: Negative Musculoskeletal: Positive: Negative Neurological: Positive: Headache. Negative: Weakness, Paresthesia, Numbness Is Patient Immunocompromised?: No Physical Exam - Summary Physical Exam Summary: GENERAL APPEARANCE: Alert and cooperative older adult female who appears to be in no acute distress. HEAD: Atraumatic. Normocephalic. EYES: Conjunctiva clear. No drainage. PERRL, EOM intact. Vision is grossly intact. EARS: External auditory canals and tympanic membranes clear, hearing grossly intact. NOSE: No nasal discharge. THROAT: Pharynx normal No tonsilar inflammation, swelling, exudate, or lesions. Uvula midline. NECK: Neck supple, non-tender without lymphadenopathy. CARDIAC: Normal S1 and S2. No S3, S4 or murmurs. Rhythm is regular. There is no peripheral edema, cyanosis or pallor. Extremities are warm and well perfused. Capillary refill is less than 2 seconds. Peripheral pulses intact. LUNGS: Clear to auscultation without rales, rhonchi, wheezing or diminished breath sounds. ABDOMEN: Positive bowel sounds. Soft, nondistended, nontender. No guarding or rebound. No masses or hepatosplenomegally. MUSKULOSKELETAL: ROM intact to all extremities. No joint erythema or tenderness. Normal muscular development. Normal gait. NEUROLOGICAL: CN II-XII intact. Strength and sensation symmetric and intact throughout. SKIN: Skin normal color, texture and turgor with no lesions or eruptions. Triage Information Reviewed: Yes Vital Signs: Initial Vital Signs Temp 99.2 F 04/26/19 19:18 Pulse 69 04/26/19 19:18 Resp 18 04/26/19 19:18 BP 162/79 04/26/19 19:18 Pulse Ox 100 04/26/19 19:18 Vital Signs Reviewed: Yes Headache Course/Dx - Course Course Of Treatment: 63-year-old female with history of migraine presents requesting administration of her ketorolac which is prescribed to her for her migraines. States she started with the migraine headache yesterday and was seen at her PCPs office and given an injection with improvement however this morning the headache returned and has been progressively worsening throughout the day. She states that the headache is her typical migraine and is associated with some photophobia and phonophobia. Denies visual disturbances, dizziness, vertigo, slurred or difficulty speaking, facial droop, numbness, tingling, or weakness of her extremities, nausea, or vomiting. Afebrile. Hypertensive otherwise vital signs stable. She was neurologically intact with an overall unremarkable physical exam. Patient was given a dose of ketorolac 60 mg IM. She is to follow-up with her primary care provider in 2 days. Anticipatory guidance and warning symptoms were reviewed with the patient. Verbalizes understanding and agrees with plan of care. - Differential Dx/Diagnosis Differential Diagnosis/HQI/PQRI: Migraine, Sinus Headache, Subarachnoid Hemorrhage, Tension Headache Provider Diagnosis: Migraine Discharge ED - Sign-Out/Discharge Documenting (check all that apply): Patient Departure All imaging exams completed and their final reports reviewed: No Studies - Discharge Plan Condition: Stable Disposition: HOME Patient Education Materials: Migraine Headache (ED) Referrals: Korina Meadows MD [Primary Care Provider] - 2 Days Additional Instructions: Follow-up with primary care physician in 2 days if symptoms persist. Seek immediate medical attention in the emergency room if you have a worsening headache, visual disturbances, facial droop, slurred or difficulty speaking, weakness, numbness, or tingling in the arms or legs, confusion, persistent vomiting, or any worsening of symptoms. - Billing Disposition and Condition Condition: STABLE Disposition: Home
== END 2019-04-26 19:55 | disposition home or self-care (01) ==
LOC: UCEAST 19:11
DX: G43.909 Migraine, unspecified, not intractable, without status migrainosus (principal); I10 Essential (primary) hypertension; H40.9 Unspecified glaucoma; Z91.030 Bee allergy status; Z88.1 Allergy status to other antibiotic agents; Z91.012 Allergy to eggs; Z91.040 Latex allergy status; Z88.5 Allergy status to narcotic agent; Z88.2 Allergy status to sulfonamides; Z91.09 Other allergy status, other than to drugs and biological substances; Z88.8 Allergy status to other drugs, medicaments and biological substances; Z88.7 Allergy status to serum and vaccine
CPT/HCPCS: 96372; 99212; G0463; J1885

== ENCOUNTER 2019-06-01 14:18 | Emergency (ER) | payer OTHER, MEDICARE ==
--- OUTSIDE RECORDS SUMMARY | 2019-06-01 14:42 | XMS REPORT | Continuity of Care Document ---
:1955 External Reference #:[id number] Author Name Terence Diggs, OD Address [address] [place] [address] Care Team Providers Name Role Phone Korina Meadows M.D. Care Team Information [employer] Worker [phone] Problems Active Problems Provider Date Vitreous degeneration Will Henley M.D. Onset: 11/24/2016 Bilateral primary open angle glaucoma Will Henley M.D. Onset: 11/24/2016 Primary open-angle glaucoma, indeterminate Terence Echevarria O.D. Onset: 2015 stage Presbyopia Terence Echevarria O.D. Onset: 02/10/2015 Regular astigmatism Terence Echevarria O.D. Onset: 02/10/2015 Myopia Terence Echevarria O.D. Onset: 02/10/2015 Open angle with borderline findings Terence Echevarria O.D. Onset: 02/10/2015 Migraine variants, not intractable Terence Echevarria O.D. Onset: 02/10/2015 Social History Type Date Description Comments Sex Unknown ETOH Use Never used alcohol Tobacco Use Start: Unknown Patient has never smoked Smoking Status Reviewed: 05/19/19 Patient has never smoked Allergies, Adverse Reactions, Alerts Active Allergies Reaction Severity Comments Date Ondansetron 02/10/2015 Prednisone 02/10/2015 Tetanus Toxoids 02/10/2015 Keflex 02/10/2015 Cipro 02/10/2015 Ceclor 02/10/2015 Nitrofurantoin 02/10/2015 Eggs or Egg-derived Products 02/10/2015 Latex 02/10/2015 Sulfa Antibiotics 02/10/2015 Tussionex Pennkinetic Extended Release 02/10/2015 Nubain 02/10/2015 Tetracycline 02/10/2015 Bee Stings 02/10/2015 Bandaids 02/10/2015 Tape paper 02/10/2015 Nubain 02/10/2015 Buprenorphine 02/10/2015 Medications Active Medications SIG Qnty Indications Ordering Provider Date Rhopressa one drop once 2.500ml Terence Diggs, OD 10/31/2018 0.02% daily both eyes Solution Zioptan 1 drops both 90units Terence Diggs, OD 04/16/2018 0.0015% eyes every day Solution Cetirizine HCL Unknown 10mg Chewtabs Lisinopril Unknown 10mg Tablets Lidoderm Unknown 5% Patches Ibuprofen Unknown 800mg Tablets Baclofen Unknown 10mg Tablets Propranolol HCL TK 1 T PO bid Unknown 20mg Tablets Ketorolac Unknown Tromethamine 60mg/2ML Solution Ibandronate Sodium Unknown 150mg Tablets Vitamin D Unknown (Ergocalciferol) 00463Ukle Capsules Francia Allergy Unknown Tablets Butalbital/Acetaminop Unknown hen/Caffeine/Codeine 63-333-26-30mg Capsules Imitrex Unknown 50mg Tablets Carisoprodol take 2 tablets Unknown 350mg four times a day Tablets if needed Zolpidem Tartrate Unknown 10mg Tablets Proair HFA inhale 2 puffs Unknown 108(90Base) by mouth four mcg/Act Aerosol times a day if needed Acetaminophen-Codeine Unknown #4 300-60mg Tablets Immunizations Description No Information Available Vital Signs Date Vital Result Comment 05/19/2019 2:43pm Intraocular Pressure Right Eye 14 mmHg Intraocular Pressure Left Eye 14 mmHg 01/22/2019 7:48am Intraocular Pressure Right Eye 15 mmHg Intraocular Pressure Left Eye 15 mmHg Results Description No Information Available Procedures Date Code Description Status 05/19/2019 42597 Oct, Optic Nerve Completed 05/19/2019 27475 Eye Exam Est Intermediate Completed 01/22/2019 98924 Eye Exam Est Intermediate Completed Medical Devices Description No Information Available Encounters Description No Information Available Assessments Date Code Description Provider 05/19/2019 H40.1131 Primary open-angle glaucoma, bilateral, mild Terence Diggs, OD stage 05/19/2019 G43.B0 Ophthalmoplegic migraine, not intractable Terence Diggs, OD 01/22/2019 H40.1131 Primary open-angle glaucoma, bilateral, mild Terence Diggs, OD stage Plan of Treatment Future Appointment(s):08/18/2019 2:45 pm - Terence Diggs, OD at [facility]/2020 - Terence Diggs ODH40.1131 Primary open-angle glaucoma, bilateral, mild ibkvbC72.B0 Ophthalmoplegic migraine, not intractableFollow up:3 mos full, sooner PRN Functional Status Description No Information Available Mental Status Description No Information Available Referrals Description No Information Available
--- OUTSIDE RECORDS SUMMARY | 2019-06-01 14:42 | XMS REPORT | Continuity of Care Document ---
:1955 External Reference #:[id number] Author Name Adan Montero NP (transmitted by agent of provider Laurie Schwarz) Address [address], [place] [address] Care Team Providers Name Role Phone Terence Laboy MD - Physical Care Team Information [facility] S[facility] Medicine & Rehabilitation Montana Giles MD - Orthopaedic Care Team Information Hide Sorter [phone] Surgery Korina Meadows M.D. - Family Medicine Care Team Information Hide Sorter Problems Active Problems Provider Date Thoracic back [...] Patient has never smoked Smoking Status Reviewed: 05/21/19 Patient has never smoked Exercise Type/Frequency Exercises [...] Medications SIG Qnty Indications Ordering Date Provider Prochlorperazine 1 suppository per 12units R11.2 Katerina Rublacava, 25mg rectum twice a day N.P. 0 Suppository as needed nausea Fluticasone Propionate 2 sprays each 16gm J01.90 Katerina Rubalcava, nostril daily as N.P. 9 50mcg/Act Suspension needed Florastor 1 by mouth twice a 60caps R11.2 Katerina Rubalcava, 250mg Capsules day N.P. 9 Vitamin D3 Ultra one by mouth once 12tabs Korina Meadows, Potency weekly [place] [id number] Tablets Ibuprofen 1 by mouth three 90tabs Other Ordering 800mg Tablets times a day Provider 9 Lactobacillus 1 by mouth every 90tabs Other Ordering Tablets day Provider 9 Lisinopril 1 by mouth every 90tabs Korina Meadows, 10mg Tablets day [place] Butalbital/Aspirin/Caf 1-2 every 8 hours 75caps G43.009 Katerina Rubalcava, feine/Codeine as needed for N.P. 9 severe migraine. 83-267-66-30mg must last 28 days Capsules Ketorolac Tromethamine 2ml intramuscular x 4ml G43.009 Ladi 1, as needed Rick Rodriguez 9 60mg/2ML Solution migraine Cetirizine HCL 1 by mouth every 30tabs J30.9 Korina Meadows, 10mg day MD Vazquez Tablets Azelastine HCL (Nasal) 2 sprays in each 30ml J30.9 Korina Meadows, nostril 2x/day as MD Vazquez 137mcg/[place] Solution needed Ambien 1 tab by mouth at 30tabs G47.00 Katerina Rubalcava, 10mg Tablets bedtime as needed N.P. 8 Baclofen take 1/2 tab by 45tabs Ermias Hutchins 10mg Tablets mouth three times [place], 7 daily M.D.,FACP Lidoderm apply topically 30units Ermias Hutchins 5% Patches every day for 12 [place], 7 hours to RT M.D.,FACP shoulder, work-related injury Latanoprost 1 drop in each eye Other Ordering 0.005% at bedtime Provider 6 Solution Freestyle Lite Blood check fingerstick 1units Ermias Hutchins Glucose Monitoring daily hypoglycemic [place], 4 System M.D.,FACP Device Proair HFA 2 puffs by mouth 8.5units J45.909 Korina Meadows, 108(90Base) four times a day as 3 mcg/Act Aerosol needed Freestyle Lite Test test BS up to three 100units Ermias Hutchins Strips times daily, last [place], 2 Strips visit: 05/04/17 M.DMj,FACP Freestyle Lancets test BS up to three 100units Ermias Hutchins Misc times daily, last [place], 2 visit: 05/04/17 M.DMj,FACP Rhopressa 1 gtt in both eyes Unknown 0.02% Solution once a day 0 Zioptan one drop in each Unknown 0.0015% Solution eye once daily in 0 evening Ventolin HFA 2 puffs by mouth 18gm Korina Meadows, 108(90Base) four times a day as 0 mcg/Act Aerosol needed (rx'd by urgent care) Imitrex every 2 hours as 18tabs G43.909 Ladi 50mg Tablets needed mdd4 mdd 4 Rick Rodriguez 0 G43.009 Excedrin Migraine 1 tab twice a day G43.009 Unknown as needed for [id number] Tablets migraine Acetaminophen-Codeine 2 tab every 4 Unknown #4 hours as needed 300-60mg Tablets pain (work-related) Carisoprodol 1 tablets by mouth 120tabs M62.40 Zsofia Cliff, 350mg Tablets four times a day HOUSEHOLD APPLIANCES SERVICE TECHNICIAN as needed History Medications Nasonex use 2 sprays in 17gm J06.9 Katerina Rubalcava, 04/30/2019 - 50mcg/Act each nostril once N.P. 05/14/2019 Suspension daily Tamiflu 1 by mouth daily 10caps Katerina Rubalcava, 04/22/2019 - 75mg for 10 days N.P. 04/29/2019 Capsules Reglan One po every 8 30tabs R11.2 Katerina Rubalcava, 02/28/2019 - 5mg Tablets hours prn nausea N.P. 03/14/2019 Vitamin D2 take 50,000 units 12tabs Korina Meadows MD 01/06/2019 - 2000Unit once a week 01/07/2019 Tablets Vancomycin HCL 1 cap 4 times a 40caps Brittany Caldwell, 12/26/2018 - day for 10 days M.D. 12/16/2018 125mg Capsules Vancocin HCL 1 by mouth four 16caps Other Ordering 12/02/2018 - 125mg times a day Provider 12/16/2018 Capsules Potassium Chloride mix one packet 30units Other Ordering 12/02/2018 - daily in beverage Provider 12/08/2018 20Meq Packet of choice and drink No Injection Katerina Rubalcava, CAREER TECHNICAL SUPERVISOR Injection Medications Administered in Office Medication SIG Qnty Indications Ordering Provider Date No Injection Nurse Visit A 04/25/2019 Injection No Injection Nurse Visit A 04/08/2019 Injection No Injection Nurse Visit A 02/07/2019 [...] CPT Code Status Date Vaccine Lot # [id number] Given 01/14/2018 Zoster (Shingles) Vaccine (HZV), Recombinant, Subunit, Adjuvanted 88884 Given 11/02/2011 Zoster (Zostavax) [id number] Refused 01/26/2011 Flu Mist Vaccine, Live For Intranasal Use Vital Signs Date Vital Result Comment 05/21/2019 9:05am Height 62.5 inches 5'2.50" Weight 118.25 lb Heart Rate 74 /min BP Systolic Sitting 140 mmHg BP Diastolic Sitting 90 mmHg Respiratory Rate 18 /min BMI (Body Mass Index) 21.3 kg/m2 04/30/2019 4:03pm Height 62.5 inches 5'2.50" Weight 119.00 lb Heart Rate 64 /min BP Systolic Sitting 120 mmHg BP Diastolic Sitting 80 mmHg Body Temperature 98.9 F O2 % BldC Oximetry 98 % BMI (Body Mass Index) 21.4 kg/m2 Results Test Acquired Date Facility Test Result H/L Range Note Basic Metabolic 04/30/2019 [facility] Sodium 133 mmol/L Low 135-145 Panel [address] [place] [address] [phone] Potassium 3.7 mmol/L Normal 3.5-5.0 Chloride 99 mmol/L Low 101-111 Co2 Carbon Dioxide 23 mmol/L Normal 22-32 Anion Gap 11 mmol/L Normal 2-11 Glucose 110 mg/dL High 70-100 Blood Urea Nitrogen 13 mg/dL Normal 6-24 Creatinine 0.53 mg/dL Normal 0.51-0.95 BUN/Creatinine Ratio 24.5 High 8-20 Calcium 10.7 mg/dL High 8.6-10.3 Egfr Non- 115.8 >60 Egfr 140.1 >60 1 Laboratory 01/25/2019 [facility] C Difficile PCR SEE RESULT 2, [address] [place] [address] [phone] Laboratory 01/24/2019 [facility] Calcium 10.0 mg/dL Normal 8.6 - test finding [address] [place], [place] [id number] [phone] Lipid Profile 01/24/2019 [facility] Triglycerides 134 mg/dL 4 (Trig/Chol/HDL DRIVE ) [place] [address] [phone] Cholesterol 294 mg/dL 5 HDL Cholesterol 50.7 mg/dL 6 LDL Cholesterol 217 mg/dL 7 Pthi 01/24/2019 [facility] Calcium (PTH 9.9 mg/dL Normal 8.6- 10.3 DRIVE Intact) [place] [address] [phone] PTH Intact 63.4 pg/mL Normal 12-88 Laboratory test 01/24/2019 [facility] Hemoglobin A1c 5.6 % Normal 4.0-5.[address] (Glyco HGB) [place] [address] [phone] 1,25 Dihydroxy 01/24/2019 [facility] Calcitriol 67 pg/mL 18- 78 [address] [place] [address] [phone] Basic Metabolic 12/19/2018 [facility] Sodium 137 Normal 135- 145 Panel mmol/[place] [address] [phone] Potassium 4.0 mmol/L Normal 3.5-5.0 Chloride 105 mmol/L Normal 101-111 Co2 Carbon Dioxide 23 mmol/L Normal 22-32 Anion Gap 9 mmol/L Normal 2-11 Glucose 132 mg/dL High 70-100 Blood Urea Nitrogen 12 mg/dL Normal 6-24 Creatinine 0.68 mg/dL Normal 0.51-0.95 BUN/Creatinine Ratio 17.6 Normal 8-20 Calcium 10.4 mg/dL High 8.6-10.3 Egfr Non- 86.8 >60 Egfr 105.1 >60 10 CBC Auto 11/28/2018 [facility] White Blood 8.9 10^3/uL Normal 3.5-10.[address] [place] [address] [phone] Red Blood Count 3.82 10^6/uL Normal 3.70-4.87 [...] Blood Cells % 0.0 Comp Metabolic 11/28/2018 [facility] Sodium 135 mmol/L Normal 135-[address] [place] [address] [phone] Potassium 2.8 mmol/L Low 3.5-5.0 Chloride 105 [...] Egfr Non- 123.8 >60 Egfr 149.8 >60 11 Laboratory test 11/28/2018 [facility] Magnesium 2.4 mg/dL Normal 1.9-2.[address] [place] [address] [phone] Laboratory test 11/27/2018 [facility] Lactic Acid 1.0 Normal 0.5-2.0 [address] mmol/[place] [address] [phone] CBC Auto Diff 11/27/2018 [facility] White Blood 11.9 High 3.5- 10.[address] Count 10^3/[place] [address] [phone] Red Blood Count 4.49 10^6/uL Normal 3.70-4.87 [...] Cells % 0.1 Comp Metabolic Panel 11/27/2018 [facility] Sodium 131 mmol/L Low 135-[address] [place] [address] [phone] Chloride 97 mmol/L Low 101-111 Co2 Carbon [...] Egfr Non- 106.4 >60 Egfr 128.8 >60 13 Potassium 2.5 mmol/L Critical low 3.5-5.0 14 Anion Gap 11 mmol/L Normal 2-11 Laboratory test 11/27/2018 [facility] Lipase 91 U/L High 11.0- 82.[address] [place] [address] [phone] C Reactive Protein < 1.00 mg/L Normal <8.01 Magnesium 1.8 mg/dL Low 1.9-2.7 Amylase 76 U/L Normal 29-103 Troponin-I (TnI) 0.02 ng/mL <0.04 15 Urinalysis Profile 11/27/2018 [facility] Urine Color Straw [address] [place] [address] [phone] Urine Appearance Clear Urine Specific [place] 1.026 Normal 1.010-1.030 Urine pH 6.0 Normal 5-9 Urine Urobilinogen Negative Negative Urine Ketones 1+ Abnormal Negative Urine Protein Negative Negative Urine Leukocytes Negative Negative Urine Blood Negative Negative Urine Nitrite Negative Negative Urine Bilirubin Negative Negative Urine Glucose Negative Negative Laboratory test 11/27/2018 [facility] C Difficile PCR SEE RESULT [address] [place] [address] [phone] 1 Because ethnic data is not always readily [...] 15-29 5 Kidney failure <15 (or dialysis) 2 MICRO RECIEVED A VERBAL ORDER PER DOC 01/26/19 3 SEE RESULT BELOW Name: SHAILADUTCH : [address]: Avila Burciaga MD Acct: [id number] Unit: [id number] AGE: 63 Location: [facility] Re01/25/19 SEX: F Status: REG REF SPEC: [id number] ALFREDO: 01/25/[address] [facility] [address]: Avila Burciaga MD REQ: [id number] RECD: 01/25/19 STATUS: RES OTHR DR: Korina Meadows MD _ SOURCE: STOOL SPDESC: ORDERED: C. diff PCR COMMENTS: MICRO RECIEVED A VERBAL ORDER PER DOC 01/26/19 Procedure Result Reported Site Stool Specimen Description Final 01/26/19- 1134 ML Stool Color Brown Stool Form Nonformed Stool Consistency Mucoid Liquid C. difficile PCR PENDING * ML - Main Lab . END OF REPORT DEPARTMENT OF PATHOLOGY, [address] [place] [address] Shiva Calabrese M.D. Director [facility] # [id number] 4 Desirable: <150 Borderline High: 150-199 High: 200-499 Very High: >500 5 Desirable: <200 Borderline High: 200-239 High: >239 6 Low: <40 Desirable: 40-60 High: >60 7 Desirable: <100 Near Optimal: 100-129 Borderline High: 130-159 High: 160-189 Very High: >189 8 Therapeutic target for the treatment of diabetes mellitus patients is <7% HBA1C, and in selective patients <6.0%. Please refer to [place] [employer] diabetic care guidelines for further information. 9 ADDITIONAL INFORMATION This test was developed and its performance characteristics determined by [facility] in a manner consistent with CLIA requirements. This test has not been cleared or approved by the U.S. Food and Drug Administration. Test Performed by: [facility] [address], [place] [address] Licensed Esthetician: Kiko Barrera M.D. Ph.D.; CLIA# [id number] 10 Because ethnic data is not always [...] 5 Kidney failure <15 (or dialysis) 11 Because ethnic data is not always readily [...] 15-29 5 Kidney failure <15 (or dialysis) 12 [facility] Severe Sepsis and Septic Shock Management Bundle Measure requires all lactic acids initially measuring >2.0 mmol/L be repeated. 13 Because ethnic data is not always readily [...] 15-29 5 Kidney failure <15 (or dialysis) 14 Critical Result K:2.5 Called to [id number] at: 22:23:43 by:[id number] Read back by:[id number] 15 Troponin-I testing on Plasma Separator Tubes (PST) has a known false positive rate of 0.20-0.40%. All positive troponins reflex immediately to secondary confirmatory testing. Using the [employer] DxI 800 Access Immunoassay systems, the 99th percentile upper reference limit was demonstrated to be < 0.03 ng/mL. 16 SEE RESULT BELOW Name: DUTCH LINTON : [address]: Batool Oden MD Acct: [id number] Unit: [id number] AGE: 63 Location: [place] [address] Re11/28/18 SEX: F Status: ADM IN SPEC: [id number] ALFREDO: 11/27/[address] [facility] [address]: Trinh CACERES REQ: [id number] RECD: 11/28/18 STATUS: MURALI MORENO DR: Prudencio Meadows MD _ SOURCE: STOOL SPDESC: ORDERED: C. diff PCR, Stool Culture COMMENTS: Verbal to [id number] by [email or web address] at 0143 on 11/28/18. Results read back [...] CONTINUED ON NEXT PAGE DEPARTMENT OF PATHOLOGY, [address] [place] [address] Shiva Calabrese M.D. Director [facility] # [id number] Patient: FELICITAS LINTONIA [id number] (Continued) Specimen: [id number] Collected: 11/27/18-9 Received: 11/28/18-36 (Continued) Procedure Result Reported Site Shiga Toxin 1 2 Final (continued) 11/28/18- 1040 C. difficile PCR Final 11/28/18- 0144 ML Organism 1 027 Presumptive NEGATIVE Organism 2 Toxigenic C.diff POSITIVE * ML - Main Lab . END OF REPORT DEPARTMENT OF PATHOLOGY, [address] [place] [address] Shiva Calabrese M.D. Director [facility] # [id number] Procedures Date Code Description Status 04/25/2019 36393 Admin Of Inj Completed 04/08/2019 81661 Admin Of Inj Completed 02/28/2019 39118 Admin Of Inj Completed 02/07/2019 03997 Admin Of Inj Completed 02/06/2019 09123 Admin Of Inj Completed 01/30/2019 [id number] Mammogram Completed 12/19/2018 92897 Admin Of Inj Completed 09/05/2018 [id number] Mammogram Completed 09/04/2017 [id number] Mammogram Completed 09/01/2016 [id number] Mammogram Completed 08/30/2015 [id number] Mammogram Completed 07/19/2015 [id number] Bone Mineral Density Test Completed 08/26/2014 [id number] Mammogram Completed 08/25/2013 [id number] Mammogram Completed 09/12/2012 [id number] Mammogram Completed 10/12/2011 [id number] Bone Mineral Density Test Completed 09/12/2011 [id number] Mammogram Completed 09/08/2010 [id number] Mammogram Completed 10/05/2009 [id number] Colonoscopy Completed 08/26/2009 [id number] Mammogram Completed Medical Devices Description No Information Available Encounters Type Date Location Provider Dx Diagnosis Office Visit 04/30/2019 [facility] Katerina Rubalcava, R11.2 Nausea with 3:40p Medicine - [facility] N.P. vomiting, unspecified J06.9 Acute upper respiratory infection, unspecified Office Visit 02/28/2019 10:20a [facility] Katerina Rubalcava, R11.2 Nausea with Medicine - N.P. vomiting, [facility] unspecified J01.90 Acute sinusitis, unspecified G43.909 Migraine, unsp, not intractable, without status migrainosus Office Visit 01/06/2019 1:40p [facility] Internal Korina Meadows, A04.72 Enterocolitis d/t Isaac - Clostridium [facility] difficile, not spcf as recur N64.52 Nipple discharge N63.20 Unspecified lump in the left breast, unspecified quadrant Office Visit 12/16/2018 4:20p [facility] Internal Korina Meadows, A04.72 Enterocolitis d/t Isaac - Clostridium [facility] difficile, not spcf as recur E87.6 Hypokalemia Office Visit 11/30/2018 1:37p [facility] Sonu Cárdenas, A04.72 Enterocolitis d/t Assyoly,tonia NUNEZ Clostridium Hospitalists difficile, not spcf as recur G43.009 Migraine w/o aura, not intractable, w/o status migrainosus Office Visit 11/29/2018 1:37p [facility] Sonu Cárdenas, A04.72 Enterocolitis d/t Assyoly,tonia NUNEZ Clostridium Hospitalists difficile, not spcf as recur E87.6 Hypokalemia G43.009 Migraine w/o aura, not intractable, w/o status migrainosus I10 Essential (primary) hypertension Office Visit 11/28/2018 [facility] Nelsy Briggs, A41.9 Sepsis, 1:36p Assoc,tonia M.DMj unspecified Hospitalists organism A04.72 Enterocolitis d/t Clostridium difficile, not spcf as recur E87.6 Hypokalemia I10 Essential (primary) hypertension Assessments Date Code Description Provider 05/21/2019 G43.909 Migraine, unspecified, not intractable, Adan Montero, GIANNI without status migrainosus 04/30/2019 R11.2 Nausea with vomiting, unspecified Katerina Rubalcava, N.P. 04/30/2019 J06.9 Acute upper respiratory infection, Katerina Rubalcava, N.P. unspecified 04/25/2019 G43.909 Migraine, unspecified, not intractable, Nurse Visit A without status migrainosus 04/08/2019 G43.909 Migraine, unspecified, not intractable, Nurse Visit A without status migrainosus 02/28/2019 R11.2 Nausea with vomiting, unspecified Katerina Jimenezn, N.P. 02/28/2019 J01.90 Acute sinusitis, unspecified Katerina Varn, N.P. 02/28/2019 G43.909 Migraine, unspecified, not intractable, Katerina Varn, N.P. without status migrainosus 02/07/2019 G43.009 Migraine [...] I10 Essential (primary) hypertension Nelsy Briggs M.D. Plan of Treatment Future Appointment(s):06/18/2019 10:00 am - Adan Montero NP at [facility]06/20/2019 2:20 pm - Katerina Rubalcava N.P. at [facility] Internal Medicine - [facility]05/21/2019 - Adan Montero NPG43.909 Migraine, unspecified, not intractable, without status migrainosusFollow up:Dr. Bertrand One MONTH Functional Status Description No Information Available Mental Status Description No Information Available Referrals Description No Information Available
--- OUTSIDE RECORDS SUMMARY | 2019-06-01 14:42 | XMS REPORT | Continuity of Care Document ---
:1955 External Reference #:[id number] Author Name Katerina Rubalcava N.P. (transmitted by agent of provider Vicky Lee) Address [address] [facility], [address] [place] [id number] Care Team Providers Name Role Phone Terence Laboy MD - Physical Care Team Information [facility] [place] Giles MD - Orthopaedic Care Team Information [facility] Korina Meadows M.D. - Family Medicine Care Team Information [facility] Problems Active Problems Provider Date Thoracic back [...] Patient has never smoked Smoking Status Reviewed: 04/30/19 Patient has never smoked Exercise Type/Frequency Exercises [...] Prochlorperazine 1 suppository per 12units R11.2 Katerina Rubalcava, 25mg rectum twice a day N.P. 0 Suppository as needed nausea Nasonex use 2 sprays in 17gm J06.9 Katerina Khadar, 50mcg/Act each nostril once N.P. 0 Suspension daily Fluticasone Propionate 2 sprays each 16gm J01.90 Katerina Rubalcava, nostril daily as N.P. 9 50mcg/Act Suspension needed Florastor 1 by mouth twice a 60caps R11.2 Katerina Rubalcava, 250mg Capsules day N.P. 9 Vitamin D3 Ultra one by mouth once 12tabs Korina Abdiel, Potency weekly 9 [id number] Tablets Ibuprofen 1 by mouth three 90tabs Other Ordering 800mg Tablets times a day Provider 9 Lactobacillus 1 by mouth every 90tabs Other Ordering Tablets day Provider 9 Lisinopril 1 by mouth every 90tabs Korina Meadows, 10mg Tablets day MD [place] Butalbital/Aspirin/Caf 1-2 every 8 hours 75caps G43.009 Aiden Sánchez NP feine/Codeine as needed for 9 severe migraine. [phone] must last 28 days Capsules Ketorolac Tromethamine 2ml intramuscular x 4ml G43.009 Ladi 1, as needed Rick Rodriguez 9 60mg/2ML Solution migraine Cetirizine HCL 1 by mouth every 30tabs J30.9 Korina Meadows, 10mg day 8 Tablets Azelastine HCL (Nasal) 2 sprays in each 30ml J30.9 Korina Meadows, nostril 2x/day as 8 137mcg/[place] Solution needed Ambien 1 tab by mouth at 30tabs G47.00 Katerina Rubalcava, 10mg Tablets bedtime as needed N.P. 8 Baclofen take 1/2 tab by 45tabs Ermias Hutchins 10mg Tablets mouth three times [place], 7 daily M.D.,FACP Lidoderm apply topically 30units Ermias Hutchins 5% Patches every day for 12 [place], 7 hours to RT M.D.,FACP shoulder, work-related injury Latanoprost 1 drop in each eye Other Ordering 0.005% at bedtime Provider 6 Solution Freestyle Lite Blood check fingerstick 1units Ermias Hutchins Glucose Monitoring daily hypoglycemic [place], 4 System M.D.,FACP Device Proair HFA 2 puffs by mouth 8.5units J45.909 Korina Meadows, 108(90Base) four times a day as 3 mcg/Act Aerosol needed Freestyle Lite Test test BS up to three 100units Ermias Hutchins Strips times daily, last [place], 2 Strips visit: 05/04/17 M.DMj,FACP Freestyle Lancets test BS up to three 100units Ermias Hutchins Misc times daily, last [place], 2 visit: 05/04/17 MMjDMj,FACP Rhopressa 1 gtt in both eyes Unknown 0.02% Solution once a day 0 Zioptan one drop in each Unknown 0.0015% Solution eye once daily in 0 evening Ventolin HFA 2 puffs by mouth 18gm Korina Meadows, 108(90Base) four times a day as MD 0 mcg/Act Aerosol needed (rx'd by urgent care) Imitrex every 2 hours as 18tabs G43.909 Ladi 50mg Tablets needed mdd4 mdd 4 Rick Rodriguez 0 G43.009 Excedrin Migraine 1 tab twice a day G43.009 Unknown as needed for [phone] Tablets migraine Acetaminophen-Codeine 2 tab every 4 Unknown #4 hours as needed 300-60mg Tablets pain (work-related) Carisoprodol 1 tablets by mouth 120tabs M62.40 Zsofia Cliff, 350mg Tablets four times a day PREP PERSON as needed History Medications Tamiflu 1 by mouth daily 10caps Katerina [...] choice and drink No Injection Katerina Rubalcava, SAUSAGE WR[employer]PER Injection Medications Administered in Office Medication SIG [...] CPT Code Status Date Vaccine Lot # [id number] Given 01/14/2018 Zoster (Shingles) Vaccine (HZV), Recombinant, Subunit, Adjuvanted 23550 Given 11/02/2011 Zoster (Zostavax) 06191 Refused 01/26/2011 Flu Mist Vaccine, Live For Intranasal Use Vital Signs Date Vital Result Comment 04/30/2019 4:03pm Height 62.5 inches 5'2.50" Weight 119.00 lb Heart Rate 64 /min BP Systolic Sitting 120 mmHg BP Diastolic Sitting 80 mmHg Body Temperature 98.9 F O2 % BldC Oximetry 98 % BMI (Body Mass Index) 21.4 kg/m2 02/28/2019 10:51am Height 62.5 inches 5'2.50" Weight 117.38 lb Heart Rate 73 /min BP Systolic Sitting 150 mmHg BP Diastolic Sitting 76 mmHg Body Temperature 99.2 F O2 % BldC Oximetry 98 % BMI (Body Mass Index) 21.1 kg/m2 Results Test Acquired Date Facility Test Result H/L Range Note Laboratory test 01/25/2019 [facility] C Difficile SEE RESULT 1, [address] [place] [address] [phone] 1,25 Dihydroxy 01/24/2019 [facility] Calcitriol 67 pg/mL 18- 78 [address] [place] [address] [phone] Laboratory test 01/24/2019 [facility] Hemoglobin A1c 5.6 % Normal 4.0-5.[address] (Glyco HGB) [place] [address] [phone] Laboratory test 01/24/2019 [facility] Calcium 10.0 mg/dL Normal 8.6-10.[address] [place] [address] [phone] Pthi 01/24/2019 [facility] Calcium (PTH 9.9 mg/dL Normal 8.6- 10.[address] Intact) [place] [address] [phone] PTH Intact 63.4 pg/mL Normal 12-88 Lipid Profile 01/24/2019 [facility] Triglycerides 134 mg/dL 5 (Trig/Chol/HDL) [address] [place] [address] [phone] Cholesterol 294 mg/dL 6 HDL Cholesterol 50.7 mg/dL 7 LDL Cholesterol 217 mg/dL 8 Laboratory test 01/06/2019 [facility] Calcium <pending> finding [address] [place] [address] [phone] Laboratory test 01/06/2019 [facility] Hemoglobin A1c <pending> finding 101 (Glyco HGB) [place] [address] [phone] Basic Metabolic 12/19/2018 [facility] Sodium 137 mmol/L Normal 135-1 Panel [address] [place] [address] [phone] Potassium 4.0 mmol/L Normal 3.5-5.0 Chloride 105 mmol/L Normal 101-111 Co2 Carbon Dioxide 23 mmol/L Normal 22-32 Anion Gap 9 mmol/L Normal 2-11 Glucose 132 mg/dL High 70-100 Blood Urea Nitrogen 12 mg/dL Normal 6-24 Creatinine 0.68 mg/dL Normal 0.51-0.95 BUN/Creatinine Ratio 17.6 Normal 8-20 Calcium 10.4 mg/dL High 8.6-10.3 Egfr Non- 86.8 >60 Egfr 105.1 >60 9 CBC Auto 11/28/2018 [facility] White Blood 8.9 10^3/uL Normal 3.5-10.8 Diff [address] [place] [address] [phone] Red Blood Count 3.82 10^6/uL Normal 3.70-4.87 [...] Blood Cells % 0.0 Comp Metabolic 11/28/2018 [facility] Sodium 135 mmol/L Normal 135-145 Panel [address] [place] [address] [phone] Potassium 2.8 mmol/L Low 3.5-5.0 Chloride 105 [...] Egfr 149.8 >60 10 Laboratory test 11/28/2018 [facility] Magnesium 2.4 mg/dL Normal 1.9-2.7 finding [address] [place] [address] [phone] Laboratory test 11/27/2018 [facility] Lactic Acid 1.0 Normal 0.5-2.0 [address] mmol/[place] [address] [phone] CBC Auto Diff 11/27/2018 [facility] White Blood 11.9 High 3.5- 10.[address] Count 10^3/[place] [address] [phone] Red Blood Count 4.49 10^6/uL Normal 3.70-4.87 [...] Cells % 0.1 Comp Metabolic Panel 11/27/2018 [facility] Sodium 131 mmol/L Low 135-[address] [place] [address] [phone] Chloride 97 mmol/L Low 101-111 Co2 Carbon [...] 11 mmol/L Normal 2-11 Laboratory test 11/27/2018 [facility] Lipase 91 U/L High 11.0- 82.0 finding [address] [place] [address] [phone] C Reactive Protein < 1.00 mg/L Normal <8.01 Magnesium 1.8 mg/dL Low 1.9-2.7 Amylase 76 U/L Normal 29-103 Troponin-I (TnI) 0.02 ng/mL <0.04 14 Urinalysis Profile 11/27/2018 [facility] Urine Color Straw [address] [place] [address] [phone] Urine Appearance Clear Urine Specific [place] 1.026 Normal 1.010-1.030 Urine pH 6.0 Normal 5-9 Urine Urobilinogen Negative Negative Urine Ketones 1+ Abnormal Negative Urine Protein Negative Negative Urine Leukocytes Negative Negative Urine Blood Negative Negative Urine Nitrite Negative Negative Urine Bilirubin Negative Negative Urine Glucose Negative Negative Laboratory test 11/27/2018 [facility] C Difficile PCR SEE RESULT [address] [place] [address] [phone] 1 MICRO RECIEVED A VERBAL ORDER PER DOC 01/26/19 2 SEE RESULT BELOW Name: DUTCH LINTON : [address]: Avila Burciaga MD Acct: [id number] Unit: [id number] AGE: 63 Location: [facility] Re01/25/19 SEX: F Status: REG REF SPEC: [id number] ALFREDO: 01/25/19 [facility] DR: Avila Burciaga MD REQ: [id number] RECD: 01/25/19 STATUS: RES OTHR DR: Korina Meadows MD _ SOURCE: STOOL SPDESC: ORDERED: Joe merritt PCR COMMENTS: MICRO RECIEVED A VERBAL ORDER PER DOC 01/26/19 Procedure Result Reported Site Stool Specimen Description Final 01/26/19- 1134 ML Stool Color Brown Stool Form Nonformed Stool Consistency Mucoid Liquid C. difficile PCR PENDING * ML - Main Lab . END OF REPORT DEPARTMENT OF PATHOLOGY, [address] [place] [address] Shiva Calabrese M.D. Director [facility] # [id number] 3 ADDITIONAL INFORMATION This test was developed and its performance characteristics determined by [facility] in a manner consistent with CLIA requirements. This test has not been cleared or approved by the U.S. Food and Drug Administration. Test Performed by: [facility] [address] [place] [id number] [employer]: Kiko Barrera M.D. Ph.D.; IA# [id number] 4 Therapeutic target for the treatment of diabetes mellitus patients is <7% HBA1C, and in selective patients <6.0%. Please refer to [place] Diabetes Association diabetic care guidelines for further [...] 5 Kidney failure <15 (or dialysis) 11 [facility] Severe Sepsis and Septic Shock Management [...] dialysis) 13 Critical Result K:2.5 Called to [id number] at: 22:23:43 by:[id number] Read back by:[id number] 14 Troponin-I testing on Plasma Separator Tubes (PST) has a known false positive rate of 0.20-0.40%. All positive troponins reflex immediately to secondary confirmatory testing. Using the [employer] DxI 800 Access Immunoassay systems, the 99th percentile upper reference limit was demonstrated to be < 0.03 ng/mL. 15 SEE RESULT BELOW Name: DUTCH LINTON : [address]: Batool Oden MD Acct: [id number] Unit: [id number] AGE: 63 Location: [place] [address] Re11/28/18 SEX: F Status: ADM IN SPEC: [id number] ALFREDO: 11/27/18-9 [facility] DR: Trinh CACERES REQ: [id number] RECD: 11/28/18 STATUS: MURALI MORENO DR: Prudencio Meadows MD _ SOURCE: STOOL SPDESC: ORDERED: C. diff PCR, Stool Culture COMMENTS: Verbal to [id number] by [id number] at 0143 on 11/28/18. Results read back [...] CONTINUED ON NEXT PAGE DEPARTMENT OF PATHOLOGY, [address] [place] [address] Shiva Calabrese M.D. Director [facility] # [id number] Patient: DUTCH LINTON [id number] (Continued) Specimen: [id number] Collected: 11/27/18 Received: 11/28/18003 (Continued) Procedure Result Reported Site Shiga Toxin 1 2 Final (continued) 11/28/18- 1040 C. difficile PCR Final 11/28/18- 0144 ML Organism 1 027 Presumptive NEGATIVE Organism 2 Toxigenic C.diff POSITIVE * ML - Main Lab . END OF REPORT DEPARTMENT OF PATHOLOGY, [address] [place] [address] Shiva Calabrese M.D. Director [facility] # [id number] Procedures Date Code Description Status 04/25/2019 81462 Admin Of Inj Completed 04/08/2019 48164 Admin Of Inj Completed 02/28/2019 39695 Admin Of Inj Completed 02/07/2019 37201 Admin Of Inj Completed 02/06/2019 48158 Admin Of Inj Completed 01/30/2019 [id number] Mammogram Completed 12/19/2018 71953 Admin Of Inj Completed 11/12/2018 43404 Admin Of Inj Completed 11/08/2018 00440 Admin Of Inj Completed 11/07/2018 81034 Admin Of Inj Completed 09/05/2018 [id number] Mammogram Completed 09/04/2017 [id number] Mammogram Completed 09/01/2016 [id number] Mammogram Completed 08/30/2015 01892522 Mammogram Completed 07/19/2015 [id number] Bone Mineral Density Test Completed 08/26/2014 [id number] Mammogram Completed 08/25/2013 24730046 Mammogram Completed 09/12/2012 45287440 Mammogram Completed 10/12/2011 [id number] Bone Mineral Density Test Completed 09/12/2011 [id number] Mammogram Completed 09/08/2010 [id number] Mammogram Completed 10/05/2009 [id number] Colonoscopy Completed 08/26/2009 15403841 Mammogram Completed Medical Devices Description No Information Available Encounters Type Date Location Provider Dx Diagnosis Office Visit 02/28/2019 [facility] Katerina Rubalcava, R11.2 Nausea with 10:20a Medicine - Noraob N.P. vomiting, unspecified J01.90 Acute sinusitis, unspecified G43.909 Migraine, unsp, not intractable, without status migrainosus Office Visit 01/06/2019 1:40p [facility] Nydia Meadows, A04.72 Enterocolitis d/t Isaac Wilkinson MD Clostridium Ccmob difficile, not spcf as recur N64.52 Nipple discharge N63.20 Unspecified lump in the left breast, unspecified quadrant Office Visit 12/16/2018 4:20p [facility] Nydia Meadows, A04.72 Enterocolitis d/t Isaac Wilkinson MD Clostridium Ccmob difficile, not spcf as recur E87.6 Hypokalemia Office Visit 11/30/2018 1:37p [facility] Soun Cárdenas, A04.72 Enterocolitis d/t tonia Penaloza MD Clostridium Hospitalists difficile, not spcf as recur G43.009 Migraine w/o aura, not intractable, w/o status migrainosus Office Visit 11/29/2018 1:37p [facility] Sonu Cárdenas, A04.72 Enterocolitis d/t tonia Penaloza MD Clostridium Hospitalists difficile, not spcf as recur E87.6 Hypokalemia G43.009 Migraine w/o aura, not intractable, w/o status migrainosus I10 Essential (primary) hypertension [facility] [place] A[facility].9 Sepsis, 1:36p Assoc,tonia Mcdaniel. unspecified Hospitalists organism A04.72 Enterocolitis d/t Clostridium difficile, not spcf as recur E87.6 Hypokalemia I10 Essential (primary) hypertension Assessments Date Code Description Provider 04/30/2019 R11.2 Nausea with vomiting, unspecified Katerina Varn, N.P. 04/30/2019 J06.9 Acute upper respiratory infection, Katerina Varn, N.P. unspecified 04/25/2019 G43.909 Migraine, unspecified, not intractable, Nurse Visit A without status migrainosus 04/08/2019 G43.909 Migraine, unspecified, not intractable, Nurse Visit A without status migrainosus 02/28/2019 R11.2 Nausea with vomiting, unspecified Katerina Varn, N.P. 02/28/2019 J01.90 Acute sinusitis, unspecified Katerina [...] without status migra Plan of Treatment Future Appointment(s):05/21/2019 9:00 am - Adan Montero NP at [facility]05/07/2019 10:20 am - JON[facility] Barcenas at [facility] - Katerina Rubalcava, N.P.R11.2 Nausea with vomiting, unspecifiedNew Medication:Prochlorperazine 25 mg - 1 suppository per rectum twice a day as needed nauseaComments:For your nausea I have prescribed Prochlorperazine 25 mg rectal suppositories. You may use this every 12 hours as needed. I have ordered blood work to check your electrolytes. Please be sure to get fluids down.If your nausea does not improve, please contact the office.J06.9 Acute upper respiratory infection, unspecifiedNew Medication: Nasonex 50 mcg/Act - use 2 sprays in each nostril once dailyComments:For sinus congestion I have prescribed Nasonex nasal spray. Use 2 inhalations in each nostril once daily until you are better.For sinus congestion you may use saline nasal spray. If your symptoms do not improve, please give the office a call. Functional Status Description No Information Available Mental Status Description No Information Available Referrals Description No Information Available
--- NOTE | 2019-06-01 14:48 | UC ---
Headache HPI - HPI Summary HPI Summary: 63 yo female presents with headache. She has a long history of migraine headaches for which she sees Neurology. She is prescribed kotorlac for her migraines and is requesting administration of this by our clinic today. She started the migraine headache yesterday and states it feels the same as her usual migraine headaches. She has some photophobia and phonophobia. She notes that she has been vomiting since last night and last night her temp was 101F -- this is not usual with her headaches. She did have right shoulder pain injections from her pain doctor 1 week ago and areas are still very tender with some bruising. She denies neck pain, SOB, chest pain, abdominal pain, dysuria, dizziness, visual changes, weakness. - History Of Current Complaint Stated Complaint: HEADACHE Time Seen by Provider: 06/01/19 14:47 Hx Last Menstrual Period: Hysterectomy Onset/Duration: Sudden Onset - Allergies/Home Medications Allergies/Adverse Reactions: Allergies Allergy/AdvReac Type Severity Reaction Status Date / Time Adhesive Tape [Paper Tape] Allergy Unknown Unknown Verified 06/01/19 14:54 Reaction Details adhesive Allergy Unknown Verified 06/01/19 14:54 Reaction Details adhesive tape Allergy Unknown Verified 06/01/19 14:54 Reaction Details bee venom protein (honey bee) Allergy Unknown Verified 06/01/19 14:54 Reaction Details buprenorphine Allergy Rash Verified 06/01/19 14:54 chlorpheniramine Allergy Unknown Verified 06/01/19 14:54 [From Tussionex] Reaction Details Egg Derived Allergy Rash Verified 06/01/19 14:54 hydrocodone [From Tussionex] Allergy Unknown Verified 06/01/19 14:54 Reaction Details latex Allergy Blisters Verified 06/01/19 14:54 nalbuphine [From Nubain] Allergy Unknown Verified 06/01/19 14:54 Reaction Details nitrofurantoin Allergy GI Upset Verified 06/01/19 14:54 [From Macrobid] Sulfa (Sulfonamide Allergy Unknown Verified 06/01/19 14:54 Antibiotics) Reaction Details Tetanus Vaccines and Toxoid Allergy GI Upset Verified 06/01/19 14:54 Tetracyclines Allergy Unknown Verified 06/01/19 14:54 Reaction Details cefaclor [From Ceclor] AdvReac GI Upset Verified 06/01/19 14:54 cephalexin [From Keflex] AdvReac GI Upset Verified 06/01/19 14:54 ciprofloxacin [From Cipro] AdvReac GI Upset Verified 06/01/19 14:54 ondansetron AdvReac Nausea And Verified 06/01/19 14:54 Vomiting GANDOCIN Allergy Unknown Unknown Uncoded 06/01/19 14:54 Reaction Details Home Medications: Home Medications Carisoprodol TAB* [Soma TAB*] 350 mg PO Q6H PRN 04/08/13 [History Confirmed ] SUMAtriptan TAB* [Imitrex TAB*] 50 mg PO Q2H PRN 04/08/13 [History Confirmed ] Zolpidem TAB* [Ambien*] 10 mg PO BEDTIME PRN 04/08/13 [History Confirmed ] Acetaminophen with Codeine [Tylenol with Codeine #3 Tablet] 2 tab PO Q4H PRN [History Confirmed 06/01/19] Albuterol HFA INHALER* [Ventolin HFA Inhaler*] 1 - 2 puff INH Q4H PRN #1 mdi [Rx Confirmed 06/01/19] Aspirin/Acetaminophen/Caffeine [Excedrin Migraine Caplet] 2 each PO BID PRN 11/25 [History Confirmed 06/01/19] Ketorolac *IM* INJ* [Toradol Inj*] 60 mg IM DAILY PRN 05/17/18 [History Confirmed 06/01/19] Baclofen TAB* [Lioresal TAB*] 5 mg PO TID PRN 06/01/18 [History Confirmed ] Ibuprofen TAB* [Motrin TAB* 800 MG] 800 mg PO Q8H PRN 06/01/18 [History Confirmed 04/26/19] Lidocaine PATCH 5%* [Lidoderm 5% Patch*] 1 patch TRANSDERM DAILY 06/01/18 [ History Confirmed 06/01/19] Calcium Carbonate/Vitamin D3 [Calcium 500 mg-Vit D3 600 Unit] 1 each PO DAILY [History Confirmed 06/01/19] Tafluprost/Pf [Zioptan 0.0015% Eye Drops] 1 each BOTH EYES BEDTIME 07/01/18 [ History Confirmed 06/01/19] Lactobacillus Acidophilus [Probiotic Acidophilus] 1 each PO DAILY #30 tablet [Rx Confirmed 06/01/19] Lisinopril TAB* [Prinivil TAB 10 MG*] 10 mg PO DAILY #30 tab 11/30/18 [Rx Confirmed 06/01/19] PMH/Surg Hx/FS Hx/Imm Hx Cardiovascular History: Hypertension Neurological History: Migraine Other History Of: Negative For: HIV, Hepatitis B, Hepatitis C, Anticoagulant Therapy - Surgical History Surgical History: Yes Surgery Procedure, Year, and Place: APPENDECTOMY-EXPLORATORY; OVARY-CYST - ; 2004 BREAST-LUMPECTOMY Rt; STAPH INFECTION W/ BREAST;TONSILECTOMY ( CHILD) , PARTIAL hysterectomy - Family History Known Family History: Positive: Cardiac Disease, Hypertension - Social History Alcohol Use: Rare Substance Use Type: None Smoking Status (MU): Never Smoked Tobacco Have You Smoked in the Last Year: No - Immunization History Most Recent Influenza Vaccination: allergy Most Recent Pneumonia Vaccination: never Review of Systems All Other Systems Reviewed And Are Negative: No Constitutional: Positive: Negative Skin: Positive: Negative Eyes: Positive: Negative ENT: Positive: Negative Respiratory: Positive: Negative Cardiovascular: Positive: Negative Gastrointestinal: Positive: Negative Neurovascular: Positive: Negative Musculoskeletal: Positive: Negative Neurological/Mental Status: Positive: Headache Psychological: Positive: Negative Physical Exam - Summary Physical Exam Summary: GENERAL: NAD. WDWN. No pain distress. SKIN: No rashes, sores, ulcers, masses, lesions. HEENT: Head: AT/NC. Eyes: PERRLA. EOM intact. Conjunctiva clear without inflammation or discharge. Ears: Hearing grossly normal. TMs intact, no bulging, erythema, or edema. Nose: Nasal mucosa pink and moist. NTTP maxillary and frontal sinus. Throat: Posterior oropharynx without exudates, erythema, or tonsillar enlargement. Uvula midline. NECK: Supple. Nontender. FROM. No meningismus. CHEST: CTAB. No r/r/w. No accessory muscle use. Breathing comfortably and in no distress. CV: RRR. Pulses intact. Brisk cap refill. ABDOMEN: Soft. NTTP. Bowel sounds present MSK: FROM in B/L UEs and LEs with symmetric strength. RIGHT SHOULDER: Posterior aspect with diffuse tenderness with mild ecchymosis. No erythema or induration. NEURO: A&Ox3. Normal speech. No facial drooping. PSYCH: Age appropriate behavior. Triage Information Reviewed: Yes Vital Signs: Vital Signs: Temp Pulse Resp BP Pulse Ox 100.8 F 71 18 150/95 99 06/01/19 14:59 06/01/19 14:59 06/01/19 14:59 06/01/19 14:59 06/01/19 14:59 Vital Signs Reviewed: Yes Headache Course/Dx - Course Course Of Treatment: Pt febrile here with vomiting since last night. Her headache does appear to be her usual migraine type, but given her hx of sepsis, unusual migraine symptoms for her (vomiting) and recent injections to right shoulder - recommend going to ED for further evaluation. Pt was agreeable to this and will drive her. - Differential Dx/Diagnosis Provider Diagnosis: Headache, Vomiting, Fever Discharge ED - Sign-Out/Discharge Documenting (check all that apply): Patient Departure All imaging exams completed and their final reports reviewed: No Studies - Discharge Plan Condition: Stable Disposition: HOME-RECOMMEND TO ED Patient Education Materials: General Headache (ED) Referrals: Korina Meadows MD [Primary Care Provider] - Additional Instructions: I recommend that you go to the ER for further evaluation of your fever, headache , and vomiting. - Billing Disposition and Condition Condition: STABLE Disposition: Home-Recommend to ED
[2019-06-01 15:03] VITALS: BP 150/95
[2019-06-01] MEDS ORDERED: Ketorolac *IM* INJ* 60 MG/2 ML VIAL IM ONE (15:03)
== END 2019-06-01 15:15 | disposition home health service (06) ==
LOC: UCEAST 14:18
DX: R51 Headache (principal); R11.10 Vomiting, unspecified; R50.9 Fever, unspecified; G43.909 Migraine, unspecified, not intractable, without status migrainosus; I10 Essential (primary) hypertension; Z79.82 Long term (current) use of aspirin; Z79.899 Other long term (current) drug therapy; Z91.030 Bee allergy status; Z88.5 Allergy status to narcotic agent; Z88.8 Allergy status to other drugs, medicaments and biological substances; Z91.018 Allergy to other foods; Z91.040 Latex allergy status; Z88.1 Allergy status to other antibiotic agents; Z88.2 Allergy status to sulfonamides; Z91.09 Other allergy status, other than to drugs and biological substances
CPT/HCPCS: 96372; 99211; G0463; J1885

== ENCOUNTER 2019-06-01 15:31 | Emergency (ER) | payer OTHER, MEDICARE ==
[2019-06-01] MEDS ORDERED: Metoclopramide TAB* 10 MG PO ONE (15:54)
--- NOTE | 2019-06-01 16:02 | ED ---
Influenza-Like Illness - HPI Summary HPI Summary: Patient is a 63 y/o F presenting to the ED for a chief complaint of fever. Patient is present with her . Patient states that on 05/31/19, she began to have a fever of 101 F, nausea, vomiting, diarrhea, nasal congestion, and a headache. She also notes a sore throat that she attributes to vomiting. Patient denies abdominal pain, neck stiffness, weakness, numbness, or paresthesia. She was seen at [facility] on 06/01/19 for her symptoms and was sent to [facility] for further assessment. At that time, she was given Toradol for a migraine, after which her headache resolved. One week ago, she received an injection in the right shoulder and she is concerned for an infection. PMHx is significant for migraines, HTN, hypoglycemia, and seasonal allergies. She denies tobacco, alcohol, or drug use. Medications reviewed. Allergies noted. - History of Current Complaint Chief Complaint: EDFever Time Seen by Provider: 06/01/19 15:41 Hx Obtained From: Patient Onset/Duration: Sudden Onset, Lasting Hours, Still Present Severity: Moderate Associated Signs & Symptoms: Fever - In vitals, 99.7 F, Sore Throat, Nasal Congestion, Headache - Resolved, Vomiting, Diarrhea - Allergy/Home Medications Allergies/Adverse Reactions: Allergies Allergy/AdvReac Type Severity Reaction Status Date / Time Adhesive Tape [Paper Tape] Allergy Unknown Unknown Verified 06/01/19 15:37 Reaction Details adhesive Allergy Unknown Verified 06/01/19 15:37 Reaction Details adhesive tape Allergy Unknown Verified 06/01/19 15:37 Reaction Details bee venom protein (honey bee) Allergy Unknown Verified 06/01/19 15:37 Reaction Details buprenorphine Allergy Rash Verified 06/01/19 15:37 chlorpheniramine Allergy Unknown Verified 06/01/19 15:37 [From Tussionex] Reaction Details Egg Derived Allergy Rash Verified 06/01/19 15:37 hydrocodone [From Tussionex] Allergy Unknown Verified 06/01/19 15:37 Reaction Details latex Allergy Blisters Verified 06/01/19 15:37 nalbuphine [From Nubain] Allergy Unknown Verified 06/01/19 15:37 Reaction Details nitrofurantoin Allergy GI Upset Verified 06/01/19 15:37 [From Macrobid] Sulfa (Sulfonamide Allergy Unknown Verified 06/01/19 15:37 Antibiotics) Reaction Details Tetanus Vaccines and Toxoid Allergy GI Upset Verified 06/01/19 15:37 Tetracyclines Allergy Unknown Verified 06/01/19 15:37 Reaction Details cefaclor [From Ceclor] AdvReac GI Upset Verified 06/01/19 15:37 cephalexin [From Keflex] AdvReac GI Upset Verified 06/01/19 15:37 ciprofloxacin [From Cipro] AdvReac GI Upset Verified 06/01/19 15:37 ondansetron AdvReac Nausea And Verified 06/01/19 15:37 Vomiting GANDOCIN Allergy Unknown Unknown Uncoded 06/01/19 15:37 Reaction Details Home Medications: Home Medications Carisoprodol TAB* [Soma TAB*] 350 mg PO Q6H PRN 04/08/13 [History Confirmed ] SUMAtriptan TAB* [Imitrex TAB*] 50 mg PO Q2H PRN MDD 4 04/08/13 [History Confirmed 06/01/19] Zolpidem TAB* [Ambien*] 10 mg PO BEDTIME PRN 04/08/13 [History Confirmed ] Acetaminophen with Codeine [Tylenol with Codeine #3 Tablet] 2 tab PO Q6H PRN [History Confirmed 06/01/19] Albuterol HFA INHALER* [Ventolin HFA Inhaler*] 1 - 2 puff INH Q4H PRN #1 mdi [Rx Confirmed 06/01/19] Aspirin/Acetaminophen/Caffeine [Excedrin Migraine Caplet] 2 each PO BID PRN 11/25 [History Confirmed 06/01/19] Ketorolac *IM* INJ* [Toradol Inj*] 60 mg IM DAILY PRN 05/17/18 [History Confirmed 06/01/19] Baclofen TAB* [Lioresal TAB*] 5 mg PO TID PRN 06/01/18 [History Confirmed ] Ibuprofen TAB* [Motrin TAB* 800 MG] 800 mg PO Q8H PRN 06/01/18 [History Confirmed 06/01/19] Lidocaine PATCH 5%* [Lidoderm 5% Patch*] 1 patch TRANSDERM DAILY 06/01/18 [ History Confirmed 06/01/19] Calcium Carbonate/Vitamin D3 [Calcium 500 mg-Vit D3 600 Unit] 1 each PO DAILY [History Confirmed 06/01/19] Tafluprost/Pf [Zioptan 0.0015% Eye Drops] 1 each BOTH EYES BEDTIME 07/01/18 [ History Confirmed 06/01/19] Lactobacillus Acidophilus [Probiotic Acidophilus] 1 each PO DAILY #30 tablet [Rx Confirmed 06/01/19] Lisinopril TAB* [Prinivil TAB 10 MG*] 10 mg PO DAILY #30 tab 11/30/18 [Rx Confirmed 06/01/19] Butalbit/Acetamin/Caff/Codeine [Lisrty-Vrni-Lefiywojhhq-Codein] 1 - 2 tab PO Q8H PRN MDD 6 06/01/19 [History Confirmed 06/01/19] Cetirizine* [ZyrTEC 10 MG TAB*] 10 mg PO DAILY PRN 06/01/19 [History Confirmed 06/01/19] Metoclopramide TAB* [Reglan TAB*] 10 mg PO Q6H PRN #12 tab 06/01/19 [Rx] Mv-Min/Iron/Folic/Calcium/Vitk [Multivitamin Women] 1 tab PO DAILY 06/01/19 [ History Confirmed 06/01/19] Netarsudil Mesylate [Rhopressa] 1 drop BOTH EYES DAILY 06/01/19 [History Confirmed 06/01/19] PMH/Surg Hx/FS Hx/Imm Hx Previously Healthy: Yes Endocrine/Hematology History: Denies: Hx Anticoagulant Therapy, Hx Diabetes, Hx Thyroid Disease Cardiovascular History: Reports: Hx Hypertension Denies: Hx Congestive Heart Failure, Hx Deep Vein Thrombosis, Hx Myocardial Infarction, Hx Pacemaker/ICD Respiratory History: Denies: Hx Asthma, Hx Chronic Obstructive Pulmonary Disease (COPD), Hx Lung Cancer, Hx Pneumonia, Hx Pulmonary Embolism GI History: Denies: Hx Gall Bladder Disease, Hx Gastrointestinal Bleed, Hx Ulcer, Hx Urosepsis History: Denies: Hx Kidney Stones, Hx Renal Disease Musculoskeletal History: Reports: Other Musculoskeletal History - CHRONIC LOW BACK PAIN; INCREASED PAIN Rt KNEE Sensory History: Reports: Hx Contacts or Glasses Denies: Hx Legally Blind, Hx Deafness, Hx Hearing Aid Opthamlomology History: Reports: Hx Contacts or Glasses Denies: Hx Legally Blind EENT History: Denies: Hx Deafness Neurological History: Reports: Hx Migraine, Other Neuro Impairments/Disorders - HEADACHES Denies: Hx Dementia, Hx Seizures, Hx Transient Ischemic Attacks (TIA) Psychiatric History: Denies: Hx Anxiety, Hx Depression, Hx Panic Disorder, Hx Schizophrenia, Hx Bipolar Disorder - Cancer History Cancer Type, Location and Year: breast Ca Hx Chemotherapy: No Hx Radiation Therapy: Yes - BREAST - Surgical History Surgical History: Yes Surgery Procedure, Year, and Place: APPENDECTOMY-EXPLORATORY; OVARY-CYST - ; 2004 BREAST-LUMPECTOMY Rt; STAPH INFECTION W/ BREAST;TONSILECTOMY ( CHILD) , PARTIAL hysterectomy Infectious Disease History: No Infectious Disease History: Denies: Hx Clostridium Difficile, Hx Hepatitis, Hx Human Immunodeficiency Virus (HIV), Hx of Known/Suspected MRSA, Hx Shingles, Hx Tuberculosis, Hx Known/ Suspected VRE, Hx Known/Suspected VRSA, History Other Infectious Disease, Traveled Outside the [place] in Last 30 Days - Family History Known Family History: Positive: Cardiac Disease, Hypertension - Social History Occupation: Retired Lives: With Family Alcohol Use: Rare Hx Substance Use: No Substance Use Type: Reports: None Hx Tobacco Use: No Smoking Status (MU): Never Smoked Tobacco Have You Smoked in the Last Year: No Review of Systems Positive: Fever - In vitals, 99.7 F Positive: Sore Throat, Other - Positive nasal congestion Positive: Vomiting, Diarrhea, Nausea. Negative: Abdominal Pain Negative: Myalgia - Neck stiffness Positive: Headache - Resolved. Negative: Weakness, Paresthesia, Numbness All Other Systems Reviewed And Are Negative: Yes Physical Exam - Summary Physical Exam Summary: Constitutional: Well-developed, Well-nourished, Alert. (-) Distressed Skin: Warm, Dry HENT: Normocephalic; Atraumatic Eyes: Conjunctiva normal Neck: Musculoskeletal ROM normal neck. (-) JVD, (-) Stridor, (-) Tracheal deviation Cardio: Rhythm regular, rate normal, Heart sounds normal; Intact distal pulses; Radial pulses are 2+ and symmetric. (-) Murmur Pulmonary/Chest wall: Effort normal. (-) Respiratory distress, (-) Wheezes, (-) Rales Abd: Soft, (-) tenderness, (-) Distension, (-) Guarding, (-) Rebound Musculoskeletal: (-) Edema. Negative Bradzinski's sign, negative Kernigs sign, able to touch chin to chest, right shoulder with full ROM, no cellulitis at injection site. Lymph: (-) Cervical adenopathy Neuro: Alert, Oriented x3. NIH Stroke Scale: 0. Psych: Mood and affect Normal Triage Information Reviewed: Yes Vital Signs On Initial Exam: Initial Vitals Temp Pulse Resp BP Pulse Ox 99.7 F 59 17 153/99 98 06/01/19 15:32 06/01/19 15:32 06/01/19 15:32 06/01/19 15:32 06/01/19 15:32 Vital Signs Reviewed: Yes Procedures - Sedation Patient Received Moderate/Deep Sedation with Procedure: No Diagnostics - Vital Signs Vital Signs Temp Pulse Resp BP Pulse Ox 06/01/19 15:32 99.7 F 59 17 153/99 98 - Laboratory Lab Statement: Any lab studies that have been ordered have been reviewed, and results considered in the medical decision making process. - Radiology Chest X-ray Radiology Interpretation Completed By: Radiologist Summary of Radiographic Findings: Chest X-ray IMPRESSION: NO ACTIVE CARDIOPULMONARY DISEASE. Reviewed by Dr. Martinez. Re-Evaluation - Re-Evaluation First Eval Re-Evaluation Time: 16:49 Change: Unchanged Comment: At 16:49, patient is vomiting. I will order Tigan. Patient does not want to stay. Flu Symptom Course/Dx - Course Course Of Treatment: Patient's history of fever, nasal congestion, cough, vomiting. Patient had a migraine yesterday which she typically has received Toradol at [facility] with resolution of her headache. Patient has no meningismus on exam. Patient had chest x-ray which was negative and a negative influenza swab. Patient was given Reglan and subsequently vomited. Patient is then given Tigan IM. Patient did not want to stay for any further workup or symptomatically management is discharged with a prescription for Reglan. - Diagnoses Provider Diagnoses: Fever, Cough, Vomiting, Nasal congestion Discharge ED - Sign-Out/Discharge Documenting (check all that apply): Patient Departure - Discharge - Discharge Plan Condition: Stable Disposition: HOME Prescriptions: Metoclopramide TAB* [Reglan TAB*] 10 mg PO Q6H PRN #12 tab PRN Reason: vomiting Patient Education Materials: Acute Cough (ED) Referrals: Korina Meadows MD [Primary Care Provider] - Additional Instructions: PLEASE RETURN TO EMERGENCY DEPARTMENT FOR ABDOMINAL PAIN, YOU CANNOT MOVE YOUR NECK, YOU CANNOT DRINK FLUIDS FOR MORE THAN 12 HOURS, OR ANY NEW OR WORSENING SYMPTOMS. Please follow up with your primary care physician. Please make all follow-ups in 1-3 days unless I advise you otherwise. - Billing Disposition and Condition Condition: STABLE Disposition: Home - Attestation Statements Document Initiated by Rickibe: Yes Documenting Scribe: Charley Watts Provider For Whom Rickibe is Documenting (Include Credential): Osmin Martinez MD Scribe Attestation: I, Charley Watts, scribed for Osmin Martinez MD on 06/01/19 at 1753. Scribe Documentation Reviewed: Yes Provider Attestation: The documentation as recorded by the rickibCharley noland accurately reflects the service I personally performed and the decisions made by me, Osmin Martinez MD Status of Scribe Document: Viewed NIH Scale - NIH Scale Level of Consciousness: Alert/Keenly Responsive Ask Patient the Month and His/Her Age: Both Correct Ask Pt to Open/Close Eyes and Bowling Pin Refinisher/Release Non-Paretic Hand: Both Correctly Best Gaze (Only Horizontal Eye Movement): Normal Visual Field Testing: No Visual Loss Facial Paresis-Pt to Smile & Close Eyes or Grimace Symmetry: Normal/Symmetrical Motor Function - Right Arm: No Drift-Holds 10 Seconds Motor Function - Left Arm: No Drift-Holds 10 Seconds Motor Function - Right Leg: No Drift-Holds 10 Seconds Motor Function - Left Leg: No Drift-Holds 10 Seconds Limb Ataxia-Must be out of Proportion to Weakness Present: Absent Sensory (Use Pinprick to Test Arms/Legs/Trunk/Face): Normal Best Language (Describe Picture, Name Items): No Aphasia Dysarthria (Read Several Words): Normal Extinction and Inattention: No Abnormality Total Score: 0
[2019-06-01 16:23] LABS: Influenza A Molecular Negative (Negative); Influenza B Molecular Negative (Negative)
[2019-06-01] MEDS ORDERED: Trimethobenzamide IM* 100 MG/ML 2 ml VIAL IM ONE (16:49)
[2019-06-01 17:13] VITALS: BP 186/86
== END 2019-06-01 17:30 | disposition home or self-care (01) ==
LOC: ED 15:31
DX: R50.9 Fever, unspecified (principal); R05 Cough; R11.10 Vomiting, unspecified; R09.81 Nasal congestion; I10 Essential (primary) hypertension; Z79.899 Other long term (current) drug therapy; Z88.1 Allergy status to other antibiotic agents; Z91.030 Bee allergy status; Z91.012 Allergy to eggs; Z91.040 Latex allergy status; Z88.5 Allergy status to narcotic agent; Z88.2 Allergy status to sulfonamides; Z88.7 Allergy status to serum and vaccine; Z91.048 Other nonmedicinal substance allergy status
CPT/HCPCS: 71046; 99283; A9270-GY; J3250

== ENCOUNTER 2019-06-05 10:04 | Emergency (ER) | payer OTHER, MEDICARE ==
--- NOTE | 2019-06-05 10:16 | ED ---
Altered Mental Status - History Of Current Complaint Chief Complaint: EDAltMentalStatus Stated Complaint: GENERAL ILLNESS Hx Last Menstrual Period: Hysterectomy - Allergies/Home Medications Allergies/Adverse Reactions: Allergies Allergy/AdvReac Type Severity Reaction Status Date / Time Adhesive Tape [Paper Tape] Allergy Unknown Unknown Verified 06/01/19 15:37 Reaction Details adhesive Allergy Unknown Verified 06/01/19 15:37 Reaction Details adhesive tape Allergy Unknown Verified 06/01/19 15:37 Reaction Details bee venom protein (honey bee) Allergy Unknown Verified 06/01/19 15:37 Reaction Details buprenorphine Allergy Rash Verified 06/01/19 15:37 chlorpheniramine Allergy Unknown Verified 06/01/19 15:37 [From Tussionex] Reaction Details Egg Derived Allergy Rash Verified 06/01/19 15:37 hydrocodone [From Tussionex] Allergy Unknown Verified 06/01/19 15:37 Reaction Details latex Allergy Blisters Verified 06/01/19 15:37 nalbuphine [From Nubain] Allergy Unknown Verified 06/01/19 15:37 Reaction Details nitrofurantoin Allergy GI Upset Verified 06/01/19 15:37 [From Macrobid] Sulfa (Sulfonamide Allergy Unknown Verified 06/01/19 15:37 Antibiotics) Reaction Details Tetanus Vaccines and Toxoid Allergy GI Upset Verified 06/01/19 15:37 Tetracyclines Allergy Unknown Verified 06/01/19 15:37 Reaction Details cefaclor [From Ceclor] AdvReac GI Upset Verified 06/01/19 15:37 cephalexin [From Keflex] AdvReac GI Upset Verified 06/01/19 15:37 ciprofloxacin [From Cipro] AdvReac GI Upset Verified 06/01/19 15:37 ondansetron AdvReac Nausea And Verified 06/01/19 15:37 Vomiting GANDOCIN Allergy Unknown Unknown Uncoded 06/01/19 15:37 Reaction Details Home Medications: Home Medications Carisoprodol TAB* [Soma TAB*] 350 mg PO Q6H PRN 04/08/13 [History Confirmed ] SUMAtriptan TAB* [Imitrex TAB*] 50 mg PO Q2H PRN MDD 4 04/08/13 [History Confirmed 06/01/19] Zolpidem TAB* [Ambien*] 10 mg PO BEDTIME PRN 04/08/13 [History Confirmed ] Acetaminophen with Codeine [Tylenol with Codeine #3 Tablet] 2 tab PO Q6H PRN [History Confirmed 06/01/19] Albuterol HFA INHALER* [Ventolin HFA Inhaler*] 1 - 2 puff INH Q4H PRN #1 mdi [Rx Confirmed 06/01/19] Aspirin/Acetaminophen/Caffeine [Excedrin Migraine Caplet] 2 each PO BID PRN 11/25 [History Confirmed 06/01/19] Ketorolac *IM* INJ* [Toradol Inj*] 60 mg IM DAILY PRN 05/17/18 [History Confirmed 06/01/19] Baclofen TAB* [Lioresal TAB*] 5 mg PO TID PRN 06/01/18 [History Confirmed ] Ibuprofen TAB* [Motrin TAB* 800 MG] 800 mg PO Q8H PRN 06/01/18 [History Confirmed 06/01/19] Lidocaine PATCH 5%* [Lidoderm 5% Patch*] 1 patch TRANSDERM DAILY 06/01/18 [ History Confirmed 06/01/19] Calcium Carbonate/Vitamin D3 [Calcium 500 mg-Vit D3 600 Unit] 1 each PO DAILY [History Confirmed 06/01/19] Tafluprost/Pf [Zioptan 0.0015% Eye Drops] 1 each BOTH EYES BEDTIME 07/01/18 [ History Confirmed 06/01/19] Lactobacillus Acidophilus [Probiotic Acidophilus] 1 each PO DAILY #30 tablet [Rx Confirmed 06/01/19] Lisinopril TAB* [Prinivil TAB 10 MG*] 10 mg PO DAILY #30 tab 11/30/18 [Rx Confirmed 06/01/19] Butalbit/Acetamin/Caff/Codeine [Mrtxyy-Bjwr-Jzihqnjqdnr-Codein] 1 - 2 tab PO Q8H PRN MDD 6 06/01/19 [History Confirmed 06/01/19] Cetirizine* [ZyrTEC 10 MG TAB*] 10 mg PO DAILY PRN 06/01/19 [History Confirmed 06/01/19] Metoclopramide TAB* [Reglan TAB*] 10 mg PO Q6H PRN #12 tab 06/01/19 [Rx] Mv-Min/Iron/Folic/Calcium/Vitk [Multivitamin Women] 1 tab PO DAILY 06/01/19 [ History Confirmed 06/01/19] Netarsudil Mesylate [Rhopressa] 1 drop BOTH EYES DAILY 06/01/19 [History Confirmed 06/01/19] PMH/Surg Hx/FS Hx/Imm Hx Endocrine/Hematology History: Denies: Hx Anticoagulant Therapy, Hx Diabetes, Hx Thyroid Disease Cardiovascular History: Reports: Hx Hypertension Denies: Hx Congestive Heart Failure, Hx Deep Vein Thrombosis, Hx Myocardial Infarction, Hx Pacemaker/ICD Respiratory History: Reports: Other Respiratory Problems/Disorders - hx of pneumonia Denies: Hx Asthma, Hx Chronic Obstructive Pulmonary Disease (COPD), Hx Lung Cancer, Hx Pneumonia, Hx Pulmonary Embolism GI History: Denies: Hx Gall Bladder Disease, Hx Gastrointestinal Bleed, Hx Ulcer, Hx Urosepsis History: Denies: Hx Kidney Stones, Hx Renal Disease Musculoskeletal History: Reports: Other Musculoskeletal History - CHRONIC LOW BACK PAIN; INCREASED PAIN Rt KNEE Sensory History: Reports: Hx Contacts or Glasses Denies: Hx Legally Blind, Hx Deafness, Hx Hearing Aid Opthamlomology History: Reports: Hx Contacts or Glasses Denies: Hx Legally Blind Neurological History: Reports: Hx Migraine, Other Neuro Impairments/Disorders - HEADACHES Denies: Hx Dementia, Hx Seizures, Hx Transient Ischemic Attacks (TIA) Psychiatric History: Denies: Hx Anxiety, Hx Depression, Hx Panic Disorder, Hx Schizophrenia, Hx Bipolar Disorder - Cancer History Cancer Type, Location and Year: breast Ca Hx Chemotherapy: No Hx Radiation Therapy: Yes - BREAST - Surgical History Surgery Procedure, Year, and Place: APPENDECTOMY-EXPLORATORY; OVARY-CYST - ; 2004 BREAST-LUMPECTOMY Rt; STAPH INFECTION W/ BREAST;TONSILECTOMY ( CHILD) , PARTIAL hysterectomy Infectious Disease History: No Infectious Disease History: Denies: Hx Clostridium Difficile, Hx Hepatitis, Hx Human Immunodeficiency Virus (HIV), Hx of Known/Suspected MRSA, Hx Shingles, Hx Tuberculosis, Hx Known/ Suspected VRE, Hx Known/Suspected VRSA, History Other Infectious Disease, Traveled Outside the [place] in Last 30 Days - Family History Known Family History: Positive: Cardiac Disease, Hypertension - Social History Alcohol Use: Rare Hx Substance Use: No Substance Use Type: Reports: None Hx Tobacco Use: No Smoking Status (MU): Never Smoked Tobacco Have You Smoked in the Last Year: No Physical Exam Vital Signs On Initial Exam: Initial Vitals Temp Pulse Resp BP Pulse Ox 97.7 F 88 20 147/111 97 06/05/19 10:06 06/05/19 10:06 06/05/19 10:06 06/05/19 10:06 06/05/19 10:06 Diagnostics - Vital Signs Vital Signs Temp Pulse Resp BP Pulse Ox 06/05/19 10:06 97.7 F 88 20 147/111 97 - Laboratory Lab Statement: Any lab studies that have been ordered have been reviewed, and results considered in the medical decision making process. Discharge ED - Discharge Plan Referrals: Korina Meadows MD [Primary Care Provider] - - Attestation Statements Document Initiated by Jennifer: Yes
--- NOTE | 2019-06-05 10:19 | ED ---
Headache - HPI Summary HPI Summary: 63 year old F arriving via private car to [facility] accompanied by complains of migraine headache starting yesterday 06/04/2019 PM. states patient fell asleep in her chair last night which patient states she has done before. Per , patient woke up with severe back pain this morning which patient states she has had before. Patient states she still has headache and intermittent nausea currently. She states the headache is diffuse and constant. The patient rates the pain 8/10 in severity. Symptoms aggravated by nothing. Symptoms alleviated by nothing. Medications reviewed. Allergies noted. Home Medications Medication Instructions Recorded Confirmed Type Carisoprodol TAB* [Soma TAB*] 350 mg PO TID 04/08/13 06/05/19 History SUMAtriptan TAB* [Imitrex TAB*] 50 mg PO Q2H PRN MDD 4 04/08/13 06/05/19 History Zolpidem TAB* [Ambien*] 10 mg PO BEDTIME PRN 04/08/13 06/05/19 History Acetaminophen with Codeine 2 tab PO Q6H PRN 07/23/13 06/05/19 History [Tylenol with Codeine #3 Tablet] Aspirin/Acetaminophen/Caffeine 1 each PO DAILY PRN 05/17/18 06/05/19 History [Excedrin Migraine Caplet] Ketorolac *IM* INJ* [Toradol Inj*] 60 mg IM DAILY PRN 05/17/18 06/05/19 History Baclofen TAB* [Lioresal TAB*] 5 mg PO TID PRN 06/01/18 06/05/19 History Ibuprofen TAB* [Motrin TAB* 800 MG] 800 mg PO TID 06/01/18 06/05/19 History Lidocaine PATCH 5%* [Lidoderm 5% 1 patch TRANSDERM Q12H 06/01/18 06/05/19 History Patch*] Tafluprost/Pf [Zioptan 0.0015% Eye 1 each BOTH EYES DAILY 07/01/18 06/05/19 History Drops] Lactobacillus Acidophilus 1 each PO DAILY #30 tablet 11/30/18 06/05/19 Rx [Probiotic Acidophilus] Lisinopril TAB* [Prinivil TAB 10 10 mg PO DAILY #30 tab 11/30/18 06/05/19 Rx MG*] Butalbit/Acetamin/Caff/Codeine 1 - 2 tab PO Q8H PRN MDD 6 06/01/19 06/05/19 History [Qpakcr-Uznl-Cvlgznkrlqm-Codein] Cetirizine* [ZyrTEC 10 MG TAB*] 10 mg PO DAILY PRN 06/01/19 06/05/19 History Mv-Min/Iron/Folic/Calcium/Vitk 1 tab PO DAILY 06/01/19 06/05/19 History [Multivitamin Women] Netarsudil Mesylate [Rhopressa] 1 drop BOTH EYES DAILY 06/01/19 06/05/19 History Albuterol HFA INHALER* [Ventolin 2 puff INH QID PRN 06/05/19 06/05/19 History HFA Inhaler*] - History Of Current Complaint Chief Complaint: EDAltMentalStatus Stated Complaint: GENERAL ILLNESS Hx Obtained From: Patient, Family/Hot Dip Plater - Hx Last Menstrual Period: Hysterectomy Onset/Duration: Started hours ago - yesterday 06/04/2019 PM, Still Present Currently Pain Is: Current Pain Scale(0-10)= - 8, Severe Timing: Constant Location of Headache: Diffuse Aggravating Factor: Nothing Allevating Factors: Nothing Associated Signs And Symptoms: Nausea - Allergies/Home Medications Allergies/Adverse Reactions: Allergies Allergy/AdvReac Type Severity Reaction Status Date / Time Adhesive Tape [Paper Tape] Allergy Unknown Unknown Verified 06/05/19 10:46 Reaction Details adhesive Allergy Unknown Verified 06/05/19 10:46 Reaction Details adhesive tape Allergy Unknown Verified 06/05/19 10:46 Reaction Details bee venom protein (honey bee) Allergy Unknown Verified 06/05/19 10:46 Reaction Details buprenorphine Allergy Rash Verified 06/05/19 10:46 chlorpheniramine Allergy Unknown Verified 06/05/19 10:46 [From Tussionex] Reaction Details Egg Derived Allergy Rash Verified 06/05/19 10:46 hydrocodone [From Tussionex] Allergy Unknown Verified 06/05/19 10:46 Reaction Details latex Allergy Blisters Verified 06/05/19 10:46 nalbuphine [From Nubain] Allergy Unknown Verified 06/05/19 10:46 Reaction Details nitrofurantoin Allergy GI Upset Verified 06/05/19 10:46 [From Macrobid] Sulfa (Sulfonamide Allergy Unknown Verified 06/05/19 10:46 Antibiotics) Reaction Details Tetanus Vaccines and Toxoid Allergy GI Upset Verified 06/05/19 10:46 Tetracyclines Allergy Unknown Verified 06/05/19 10:46 Reaction Details cefaclor [From Ceclor] AdvReac GI Upset Verified 06/05/19 10:46 cephalexin [From Keflex] AdvReac GI Upset Verified 06/05/19 10:46 ciprofloxacin [From Cipro] AdvReac GI Upset Verified 06/05/19 10:46 ondansetron AdvReac Nausea And Verified 06/05/19 10:46 Vomiting GANDOCIN Allergy Unknown Unknown Uncoded 06/01/19 15:37 Reaction Details Home Medications: Home Medications Carisoprodol TAB* [Soma TAB*] 350 mg PO TID 04/08/13 [History Confirmed ] SUMAtriptan TAB* [Imitrex TAB*] 50 mg PO Q2H PRN MDD 4 04/08/13 [History Confirmed 06/05/19] Zolpidem TAB* [Ambien*] 10 mg PO BEDTIME PRN 04/08/13 [History Confirmed ] Acetaminophen with Codeine [Tylenol with Codeine #3 Tablet] 2 tab PO Q6H PRN [History Confirmed 06/05/19] Aspirin/Acetaminophen/Caffeine [Excedrin Migraine Caplet] 1 each PO DAILY PRN [History Confirmed 06/05/19] Ketorolac *IM* INJ* [Toradol Inj*] 60 mg IM DAILY PRN 05/17/18 [History Confirmed 06/05/19] Baclofen TAB* [Lioresal TAB*] 5 mg PO TID PRN 06/01/18 [History Confirmed ] Ibuprofen TAB* [Motrin TAB* 800 MG] 800 mg PO TID 06/01/18 [History Confirmed ] Lidocaine PATCH 5%* [Lidoderm 5% Patch*] 1 patch TRANSDERM Q12H 06/01/18 [ History Confirmed 06/05/19] Tafluprost/Pf [Zioptan 0.0015% Eye Drops] 1 each BOTH EYES DAILY 07/01/18 [ History Confirmed 06/05/19] Lactobacillus Acidophilus [Probiotic Acidophilus] 1 each PO DAILY #30 tablet [Rx Confirmed 06/05/19] Lisinopril TAB* [Prinivil TAB 10 MG*] 10 mg PO DAILY #30 tab 11/30/18 [Rx Confirmed 06/05/19] Butalbit/Acetamin/Caff/Codeine [Lwahtx-Vcat-Hrlczqcrkua-Codein] 1 - 2 tab PO Q8H PRN MDD 6 06/01/19 [History Confirmed 06/05/19] Cetirizine* [ZyrTEC 10 MG TAB*] 10 mg PO DAILY PRN 06/01/19 [History Confirmed 06/05/19] Mv-Min/Iron/Folic/Calcium/Vitk [Multivitamin Women] 1 tab PO DAILY 06/01/19 [ History Confirmed 06/05/19] Netarsudil Mesylate [Rhopressa] 1 drop BOTH EYES DAILY 06/01/19 [History Confirmed 06/05/19] Albuterol HFA INHALER* [Ventolin HFA Inhaler*] 2 puff INH QID PRN 06/05/19 [ History Confirmed 06/05/19] PMH/Surg Hx/FS Hx/Imm Hx Endocrine/Hematology History: Denies: Hx Anticoagulant Therapy, Hx Diabetes, Hx Thyroid Disease Cardiovascular History: Reports: Hx Hypertension Denies: Hx Congestive Heart Failure, Hx Deep Vein Thrombosis, Hx Myocardial Infarction, Hx Pacemaker/ICD Respiratory History: Reports: Other Respiratory Problems/Disorders - hx of pneumonia Denies: Hx Asthma, Hx Chronic Obstructive Pulmonary Disease (COPD), Hx Lung Cancer, Hx Pneumonia, Hx Pulmonary Embolism GI History: Denies: Hx Gall Bladder Disease, Hx Gastrointestinal Bleed, Hx Ulcer, Hx Urosepsis History: Denies: Hx Kidney Stones, Hx Renal Disease Musculoskeletal History: Reports: Other Musculoskeletal History - CHRONIC LOW BACK PAIN; INCREASED PAIN Rt KNEE Sensory History: Reports: Hx Contacts or Glasses Denies: Hx Legally Blind, Hx Deafness, Hx Hearing Aid Opthamlomology History: Reports: Hx Contacts or Glasses Denies: Hx Legally Blind Neurological History: Reports: Hx Headaches, Hx Migraine, Other Neuro Impairments/Disorders - HEADACHES Denies: Hx Dementia, Hx Seizures, Hx Transient Ischemic Attacks (TIA) Psychiatric History: Denies: Hx Anxiety, Hx Depression, Hx Panic Disorder, Hx Schizophrenia, Hx Bipolar Disorder - Cancer History Cancer Type, Location and Year: breast Ca Hx Chemotherapy: No Hx Radiation Therapy: Yes - BREAST - Surgical History Surgery Procedure, Year, and Place: APPENDECTOMY-EXPLORATORY; [facility] - ; 2004 BREAST-LUMPECTOMY Rt; STAPH INFECTION W/ BREAST;TONSILECTOMY ( CHILD) , PARTIAL hysterectomy Infectious Disease History: No Infectious Disease History: Denies: Hx Clostridium Difficile, Hx Hepatitis, Hx Human Immunodeficiency Virus (HIV), Hx of Known/Suspected MRSA, Hx Shingles, Hx Tuberculosis, Hx Known/ Suspected VRE, Hx Known/Suspected VRSA, History Other Infectious Disease, Traveled Outside the [place] in Last 30 Days - Family History Known Family History: Positive: Cardiac Disease, Hypertension - Social History Alcohol Use: Rare Hx Substance Use: No Substance Use Type: Reports: None Hx Tobacco Use: No Smoking Status (MU): Never Smoked Tobacco Have You Smoked in the Last Year: No Review of Systems Positive: Nausea Positive: Other - severe back pain Positive: Headache All Other Systems Reviewed And Are Negative: Yes Physical Exam - Summary Physical Exam Summary: Appearance: The patient is well-nourished in no acute distress and in no acute pain. Skin: The skin is warm and dry, and skin color reflects adequate perfusion. HEENT: The head is normocephalic and atraumatic. The pupils are equal and reactive. The conjunctivae are clear and without drainage. Nares are patent and without drainage. Mouth reveals moist mucous membranes, and the throat is without erythema and exudate. The external ears are intact. The ear canals are patent and without drainage. The tympanic membranes are intact. Neck: The neck is supple with full range of motion and non-tender. There are no carotid bruits. There is no neck vein distension. Respiratory: Chest is non-tender. Lungs are clear to auscultation and breath sounds are symmetrical and equal. Cardiovascular: Heart is regular rate and rhythm. There is no murmur or rub auscultated. There is no peripheral edema and pulses are symmetrical and equal. Abdomen: The abdomen is soft and non-tender. There are normal bowel sounds heard in all four quadrants and there is no organomegaly palpated. Musculoskeletal: There is no back tenderness noted. Extremities are non-tender with full range of motion. There is good capillary refill. There is no peripheral edema or calf tenderness elicited. Neurological: Patient is alert and oriented to person, place and time. The patient has symmetrical motor strength in all four extremities. Cranial nerves are grossly intact. Deep tendon reflexes are symmetrical and equal in all four extremities. There are no meningeal signs. Psychiatric: The patient has an appropriate affect and does not exhibit any anxiety or depression. GCS: 15 Triage Information Reviewed: Yes Vital Signs On Initial Exam: Initial Vitals Temp Pulse Resp BP Pulse Ox 97.7 F 88 20 147/111 97 06/05/19 10:06 06/05/19 10:06 06/05/19 10:06 06/05/19 10:06 06/05/19 10:06 Vital Signs Reviewed: Yes Procedures - Sedation Patient Received Moderate/Deep Sedation with Procedure: No Diagnostics - Vital Signs Vital Signs Temp Pulse Resp BP Pulse Ox 06/05/19 10:06 97.7 F 88 20 147/111 97 - Laboratory Result Diagrams: 06/05/19 10:52 06/05/19 10:52 Lab Statement: Any lab studies that have been ordered have been reviewed, and results considered in the medical decision making process. - CT BRAIN CT Interpretation Completed By: Radiologist - IMPRESSION: NO EVIDENCE FOR ACUTE INTRACRANIAL ABNORMALITY. ED physician has reviewed this imaging report. - EKG 1040 Cardiac Rate: NL - 81 BPM EKG Rhythm: Sinus Rhythm ST Segment: Normal Ectopy: None Summary of EKG Findings: ED physician has reviewed and interpreted this EKG Re-Evaluation - Re-Evaluation First Eval Re-Evaluation Time: 11:50 Change: Improved Second Eval Re-Evaluation Time: 13:16 Change: Improved - patient agrees to discharge Headache Course/Dx - Course Course Of Treatment: Ms. Morelos presented complaining of a migraine headache for the last couple of days. She was seen here about 4 days ago for a febrile illness and a headache. Her headache went completely away for a couple of days but then returned yesterday. She states that she has nearly daily headaches. She calls them migraine headaches. This is no different from any of her other headaches except normally she can control them somewhat ibuprofen and she is not able to today. She was nontoxic in appearance with stable vitals and afebrile. She had no meningeal signs. She was given a migraine cocktail of IV normal saline, ketorolac and metoclopramide with complete relief of her headache. Her laboratory work revealed a very slight leukocytosis of 11.2 and was otherwise very similar to previous labs. There is no evidence this is an acute infectious process and she guarantees me that this was a migraine that she is very familiar with and I will discharge her to follow-up with her PCP. - Diagnoses Provider Diagnoses: Migraine headache, Dehydration Discharge ED - Sign-Out/Discharge Documenting (check all that apply): Patient Departure - Discharge Plan Condition: Stable Disposition: HOME Patient Education Materials: Dehydration (ED), Migraine Headache (ED) Referrals: Korina Meadows MD [Primary Care Provider] - 2 Days Additional Instructions: Follow up with your primary care provider in 2-3 days. Return to the Emergency Department for new or worsening symptoms. - Billing Disposition and Condition Condition: STABLE Disposition: Home - Attestation Statements Document Initiated by Jennifer: Yes Documenting Scribe: Bonnie Blanchard Provider For Whom Jennifer is Documenting (Include Credential): Tio Rhodes MD Scribe Attestation: IBonnie, scribed for Tio Rhodes MD on 06/05/19 at 2016. Scribe Documentation Reviewed: Yes Provider Attestation: The documentation as recorded by the Bonnie soriano accurately reflects the service I personally performed and the decisions made by me, Tio Rhodes MD Status of Scribe Document: Viewed
[2019-06-05] MEDS ORDERED: NS 0.9% 1000 ML** 1,000 ML IV ONE (10:28)
[2019-06-05] MEDS ORDERED: Metoclopramide IV* 5 MG/ML 2 ML VIAL IV ONE (10:29)
[2019-06-05] MEDS ORDERED: Ketorolac INJ* 30 MG/ML 1 ML VIAL IV PUSH ONE (10:29)
[2019-06-05 11:07] LABS: ABS Eosinophils 0.1 10^3/ul (0-0.6); ABS Lymphocytes 0.9 10^3/ul (1.0-4.8); ABS Monocytes 0.7 10^3/ul (0-0.8); ABS Neutrophils 9.4 10^3/ul (1.5-7.7); Eosinophil % 0.5 %; Hematocrit 33 % (35-47); Hemoglobin 11.6 g/dL (12.0-16.0); Lymphocyte % 8.5 %; Mean Corpuscular HGB Conc 35 g/dL (31-36); Mean Corpuscular Hemoglobin 32 pg (27-31); Mean Corpuscular Volume 91 fL (80-97); Mean Platelet Volume 7.2 fL (7.4-10.4); Platelet Count 265 10^3/uL (150-450); Red Blood Count 3.64 10^6 /uL (3.70-4.87); Red Cell Distribution Width 13 % (10-15); White Blood Count 11.2 10^3/uL (3.5-10.8)
[2019-06-05 11:19] LABS: Albumin 4.5 g/dL (3.2-5.2); Albumin/Globulin Ratio 1.9 (1-3); BUN/Creatinine Ratio 26.6 (8-20); Calcium 9.6 mg/dL (8.6-10.3); EGFR Non-African American 50.4 (>60); Globulin 2.4 g/dL (2-4); Potassium 3.2 mmol/L (3.5-5.0); Total Bilirubin 0.2 mg/dL (0.2-1.0); Total Protein 6.9 g/dL (6.4-8.9)
[2019-06-05 11:22] LABS: INR 0.98 (0.82-1.09)
[2019-06-05 13:53] VITALS: BP 157/82
== END 2019-06-05 13:55 | disposition home or self-care (01) ==
LOC: ED 10:04
DX: G43.909 Migraine, unspecified, not intractable, without status migrainosus (principal); E86.0 Dehydration; R11.0 Nausea; I44.7 Left bundle-branch block, unspecified; I10 Essential (primary) hypertension; Z79.899 Other long term (current) drug therapy; Z79.51 Long term (current) use of inhaled steroids; Z88.1 Allergy status to other antibiotic agents; Z91.030 Bee allergy status; Z91.012 Allergy to eggs; Z88.5 Allergy status to narcotic agent; Z88.2 Allergy status to sulfonamides; Z88.7 Allergy status to serum and vaccine; Z88.8 Allergy status to other drugs, medicaments and biological substances; Z91.048 Other nonmedicinal substance allergy status
CPT/HCPCS: 36415; 70450; 80053; 84484; 85025; 85610; 93005; 96361; 96374; 96375; 99283; J1885; J2765

== ENCOUNTER 2019-06-22 15:19 | Emergency (ER) | payer OTHER, MEDICARE ==
--- OUTSIDE RECORDS SUMMARY | 2019-06-22 18:07 | XMS REPORT | Continuity of Care Document ---
:1955 External Reference #:[id number] Author Name Katerina Rubalcava N.P. (transmitted by agent of provider Charley Mercado) Address [address] [facility], [address] [place] [id number] Care Team Providers Name Role Phone Terence Laboy MD - Physical Care Team Information Tank [facility] [place] Giles MD - Orthopaedic Care Team Information Tank Ref[facility] Surgery Korina Meadows M.D. - Family Medicine Care Team Information Tank Refinisher Problems Active Problems Provider Date Thoracic back [...] Patient has never smoked Smoking Status Reviewed: 06/20/19 Patient has never smoked Exercise Type/Frequency Exercises [...] Butrans 12/13/2012 Patch Spider Bites Severe 12/16/2018 Pineapple Extract 06/18/2019 Inactive Allergies Prednisone nausea 07/15/2009 Medications Active [...] 12tabs Korina Meadows, Potency weekly [place] [id number] Tablets Ibuprofen 1 by mouth three 90tabs Other Ordering 800mg Tablets times a day Provider 9 Lactobacillus 1 by mouth every 90tabs Other Ordering Tablets day Provider 9 Lisinopril 1 by mouth every 90tabs Korina Meadows, 10mg Tablets day [place] Butalbital/Aspirin/Caf 1-2 every 8 hours 75caps G43.009 Katerina Rubalcava, feine/Codeine as needed for N.P. 9 severe migraine. 45-763-25-30mg must last 28 days Capsules Ketorolac Tromethamine 2ml intramuscular x 4ml G43.009 Alvaro Jurado 1, as needed Rick Poole 9 60mg/2ML Solution migraine Cetirizine HCL 1 by mouth every 30tabs J30.9 Korinatara [place], 10mg day MD Vazquez Tablets Azelastine HCL (Nasal) 2 sprays in each 30ml J30.9 Korinatara Meadows, nostril 2x/day as MD Vazquez 137mcg/[place] Solution needed Ambien 1 tab by mouth at 30tabs G47.00 Katerina Jimenezavinash, 10mg Tablets bedtime as needed N.P. 8 Baclofen take 1/2 tab by 45tabs Ermias Hutchins 10mg Tablets mouth three times Gaines, 7 daily M.D.,FACP Lidoderm apply topically 30units Ermias uHtchins 5% Patches every day for 12 Gaines, 7 hours to RT M.D.,FACP shoulder, work-related injury Latanoprost 1 drop in each eye Other Ordering 0.005% at bedtime Provider 6 Solution Freestyle Lite Blood check fingerstick 1units Ermias Hutchins Glucose Monitoring daily hypoglycemic Gaines, 4 System M.D.,FACP Device Freestyle Lancets test BS up to three 100units Ermias Hutchins Misc times daily, last Gaines, 2 visit: 05/04/17 M.DMj,FACP Freestyle Lite Test test BS up to three 100units Ermias Hutchins Strips times daily, last Gaines, 2 Strips visit: 05/04/17 M.DMj,FACP Carisoprodol 1 tablets by mouth 120tabs M62.40 Zsofia Cliff, 350mg four times a day as LEAD CASHIER 0 Tablets needed Acetaminophen-Codeine 2 tab every 4 hours Unknown #4 as needed pain 0 300-60mg Tablets (work-related) Excedrin Migraine 1 tab twice a day G43.009 Unknown 00/00/000 as needed for 0 334-307-24mn Tablets migraine Imitrex every 2 hours as 18tabs G43.909 Criselda 50mg Tablets needed mdd4 mdd 4 MD Luis Miguel 0 G43.009 Ventolin HFA 2 puffs by mouth four 18gm Korina Meadows MD 108(90Base) mcg/Act times a day as needed Aerosol (rx'd by urgent care) Zioptan one drop in each eye Unknown 0.0015% Solution once daily in evening Rhopressa 1 gtt in both eyes once Unknown 0.02% Solution a day One-A-Day Womens Formula 2 tablets daily Unknown Tablets History Medications Aimovig inject sq once 1ml Alvaro Poole, 06/18/2019 - 70mg/ml a month M.D. 06/18/2019 Solution Auto-Inject Aimovig inject sq once 1ml G43.909 Alvaro Poole, 06/18/2019 - 70mg/ml a month M.D. 06/18/2019 Solution Auto-Inject Nasonex use 2 sprays in 17gm J06.9 Katerina Rubalcava, 04/30/2019 - 50mcg/Act each nostril N.P. 05/14/2019 Suspension once daily Tamiflu 1 by mouth 10caps Katerina Rubalcava, 04/22/2019 - 75mg Capsules daily for 10 N.P. 04/29/2019 days Reglan One po every 8 30tabs R11.2 Katerina Rubalcava, 02/28/2019 - 5mg Tablets hours prn N.P. 03/14/2019 nausea Vitamin D2 take 50,000 12tabs Korina Meadows MD 01/06/2019 - 2000Unit units once a 01/07/2019 Tablets week Vancomycin HCL 1 cap 4 times a 40caps Brittany Caldwell, 12/26/2018 - 125mg day for 10 days M.D. 12/16/2018 Capsules No Injection Katerina Rubalcava, ROAD SUPERVISOR Injection Medications Administered in Office Medication SIG Qnty Indications Ordering Provider Date Toradol Injection 15MG Katerina Rubalcava, N.P. 06/20/2019 Injection Toradol Injection 15MG Nurse Visit A 06/18/2019 Injection No Injection Nurse Visit A 05/26/2019 Injection Toradol Injection 15MG Nurse Visit A 05/26/2019 Injection Toradol Injection 15MG Nurse Visit A 05/22/2019 Injection No Injection Nurse Visit A 04/25/2019 Injection [...] CPT Code Status Date Vaccine Lot # [id number] Given 01/14/2018 Zoster (Shingles) Vaccine (HZV), Recombinant, Subunit, Adjuvanted 12844 Given 11/02/2011 Zoster (Zostavax) 38830 Refused 01/26/2011 Flu Mist Vaccine, Live For Intranasal Use Vital Signs Date Vital Result Comment 06/20/2019 2:40pm Height 62.5 inches 5'2.50" Weight 122.25 lb Heart Rate 78 /min BP Systolic Sitting 108 mmHg BP Diastolic Sitting 66 mmHg Body Temperature 98.8 F O2 % BldC Oximetry 97 % BMI (Body Mass Index) 22.0 kg/m2 06/18/2019 10:03am Height 62.5 inches 5'2.50" Weight 121.00 lb Heart Rate 78 /min BP Systolic 142 mmHg BP Diastolic 84 mmHg BMI (Body Mass Index) 21.8 kg/m2 Results Test Acquired Date Facility Test Result H/L Range Note Lipid Profile 06/12/2019 [facility] Triglycerides 136 mg/dL 1 (Trig/Chol/HDL) [address] [place], [place] [id number] [phone] Cholesterol 281 mg/dL 2 HDL Cholesterol 50.4 mg/dL 3 LDL Cholesterol 203 mg/dL 4 Comp Metabolic 06/12/2019 [facility] Sodium 138 mmol/L Normal 135-145 Panel [address] [place] [address] [phone] Potassium 4.3 mmol/L Normal 3.5-5.0 Chloride 100 mmol/L Low 101-111 Co2 Carbon Dioxide 30 mmol/L Normal 22-32 Anion Gap 8 mmol/L Normal 2-11 Glucose 107 mg/dL High 70-100 Blood Urea Nitrogen 10 mg/dL Normal 6-24 Creatinine 0.61 mg/dL Normal 0.51-0.95 BUN/Creatinine Ratio 16.4 Normal 8-20 Calcium 10.7 mg/dL High 8.6-10.3 Total Protein 6.6 g/dL Normal 6.4-8.9 Albumin 4.1 g/dL Normal 3.2-5.2 Globulin 2.5 g/dL Normal 2-4 Albumin/Globulin Ratio 1.6 Normal 1-3 Total Bilirubin 0.30 mg/dL Normal 0.2-1.0 Alkaline Phosphatase 97 U/L Normal 34-104 Alt 14 U/L Normal 7-52 Ast 11 U/L Low 13-39 Egfr Non- 98.4 >60 Egfr 119.1 >60 5 CBC Auto 06/05/2019 [facility] White Blood 11.2 10^3/uL High 3.5-10.[address] [place] [address] [phone] Red Blood Count 3.64 10^6/uL Low 3.70-4.87 Hemoglobin 11.6 g/dL Low 12.0-16.0 Hematocrit 33 % Low 35-47 Mean Corpuscular Volume 91 fL Normal 80-97 Mean Corpuscular Hemoglobin 32 pg High 27-31 Mean Corpuscular HGB Conc 35 g/dL Normal 31-36 Red Cell Distribution Width 13 % Normal 10-15 Platelet Count 265 10^3/uL Normal 150-450 Mean Platelet Volume 7.2 fL Low 7.4-10.4 Abs Neutrophils 9.4 10^3/uL High 1.5-7.7 Abs Lymphocytes 0.9 10^3/uL Low 1.0-4.8 Abs Monocytes 0.7 10^3/uL Normal 0-0.8 Abs Eosinophils 0.1 10^3/uL Normal 0-0.6 Abs Basophils 0.0 10^3/uL Normal 0-0.2 Abs Nucleated RBC 0.0 10^3/uL Granulocyte % 84.2 % Lymphocyte % 8.5 % Monocyte % 6.5 % Eosinophil % 0.5 % Basophil % 0.3 % Nucleated Red Blood Cells % 0.0 Inr/Protime 06/05/2019 [facility] Inr 0.98 Normal 0.82-1.[address] [place] [address] [phone] Comp Metabolic 06/05/2019 [facility] Sodium 131 mmol/L Low 135 -145 Panel [address] [place] [address] [phone] Potassium 3.2 mmol/L Low 3.5-5.0 Chloride 104 mmol/L Normal 101-111 Co2 Carbon Dioxide 17 mmol/L Low 22-32 Anion Gap 10 mmol/L Normal 2-11 Glucose 169 mg/dL High 70-100 Blood Urea Nitrogen 29 mg/dL High 6-24 Creatinine 1.09 mg/dL High 0.51-0.95 BUN/Creatinine Ratio 26.6 High 8-20 Calcium 9.6 mg/dL Normal 8.6-10.3 Total Protein 6.9 g/dL Normal 6.4-8.9 Albumin 4.5 g/dL Normal 3.2-5.2 Globulin 2.4 g/dL Normal 2-4 Albumin/Globulin Ratio 1.9 Normal 1-3 Total Bilirubin 0.20 mg/dL Normal 0.2-1.0 Alkaline Phosphatase 94 U/L Normal 34-104 Alt 19 U/L Normal 7-52 Ast 18 U/L Normal 13-39 Egfr Non- 50.4 >60 Egfr 61.0 >60 7 Laboratory test 06/05/2019 [facility] Troponin-I (TnI) 0.00 ng/ mL <0.03 8 finding [address] [place] [address] [phone] Influenza A & B 06/01/2019 [facility] Flu AB (SEE NOTE) [address] [place] [address] [phone] Influenza A Molecular Negative Negative Influenza B Molecular Negative Negative 10 Basic Metabolic 04/30/2019 [facility] Sodium 133 mmol/L Low 135-145 Panel [address] [place] [address] [phone] Potassium 3.7 mmol/L Normal 3.5-5.0 Chloride 99 mmol/L Low 101-111 Co2 Carbon Dioxide 23 mmol/L Normal 22-32 Anion Gap 11 mmol/L Normal 2-11 Glucose 110 mg/dL High 70-100 Blood Urea Nitrogen 13 mg/dL Normal 6-24 Creatinine 0.53 mg/dL Normal 0.51-0.95 BUN/Creatinine Ratio 24.5 High 8-20 Calcium 10.7 mg/dL High 8.6-10.3 Egfr Non- 115.8 >60 Egfr 140.1 >60 11 Laboratory 01/25/2019 [facility] C Difficile PCR SEE RESULT 12, 13 test finding [address] [place], [place] [id number] [phone] Laboratory 01/24/2019 [facility] Calcium 10.0 mg/dL Normal 8.6 test finding [address] [place] [address] .3 [phone] Lipid Profile 01/24/2019 [facility] Triglycerides 134 mg/dL 14 (Trig/Chol/HDL [address] ) [place], [place] [address] [phone] Cholesterol 294 mg/dL 15 HDL Cholesterol 50.7 mg/dL 16 LDL Cholesterol 217 mg/dL 17 Pthi 01/24/2019 [facility] Calcium (PTH 9.9 mg/dL Normal 8.6- 10.[address] Intact) [place] [address] [phone] PTH Intact 63.4 pg/mL Normal 12-88 Laboratory test 01/24/2019 [facility] Hemoglobin A1c 5.6 % Normal 4.0-5.6 [address] (Glyco HGB) [place] [address] [phone] 1,25 Dihydroxy 01/24/2019 [facility] Calcitriol 67 18-78 19 Vitamin D [address] pg/mL [place], [place] [address] [phone] 1 Desirable: <150 Borderline High: 150-199 High: 200-499 Very High: >500 2 Desirable: <200 Borderline High: 200-239 High: >239 3 Low: <40 Desirable: 40-60 High: >60 4 Desirable: <100 Near Optimal: 100-129 Borderline High: 130-159 High: 160-189 Very High: >189 5 Because ethnic data is not always readily [...] 15-29 5 Kidney failure <15 (or dialysis) 6 Standard intensity warfarin therapeutic range: 2.0-3.0 High intensity warfarin therapeutic range: 2.5-3.5 7 Because ethnic data is not always readily [...] 15-29 5 Kidney failure <15 (or dialysis) 8 Troponin-I testing on Plasma Separator Tubes (PST) has a known false positive rate of 0.20-0.40%. All positive troponins reflex immediately to secondary confirmatory testing. Using the [employer] DxI 800 Access Immunoassay systems, the 99th percentile upper reference limit was demonstrated to be < 0.03 ng/mL. 9 Suboptimal collection technique may reduce sensitivity of test. Refer to the [facility] Test Catalog for collection information: [email or web address] As with all diagnostic procedures, the laboratory results obtained should be used in conjunction with other clinical information available to the physician, including confirmation by another method, as applicable. 10 Sound Printer: [id number] 11 Because ethnic data is not always [...] 5 Kidney failure <15 (or dialysis) 12 MICRO RECIEVED A VERBAL ORDER PER DOC 01/26/19 13 SEE RESULT BELOW Name: DUTCH LINTON : [address]: Avila Burciaga MD Acct: [id number] Unit: [id number] AGE: 63 Location: [facility] Re01/25/19 SEX: F Status: REG REF SPEC: [id number] ALFREDO: 01/25/[address] [facility] [address]: Avila Burciaga MD REQ: [id number] RECD: 01/25/19 STATUS: RES JOSH DR: Korina Meadows MD _ SOURCE: STOOL SPDESC: ORDERED: C. diff PCR COMMENTS: MICRO RECIEVED A VERBAL ORDER PER DOC 01/26/19 Procedure Result Reported Site Stool Specimen Description Final 01/26/19- 1134 ML Stool Color Brown Stool Form Nonformed Stool Consistency Mucoid Liquid C. difficile PCR PENDING * ML - Main Lab . END OF REPORT DEPARTMENT OF PATHOLOGY, [address] [place] [address] Shiva Calabrese M.D. Director [facility] # [id number] Desirable: <150 Borderline High: 150-199 High: 200-499 Very High: >500 15 Desirable: <200 Borderline High: 200-239 High: >239 16 Low: <40 Desirable: 40-60 High: >60 17 Desirable: <100 Near Optimal: 100-129 Borderline High: 130-159 High: 160-189 Very High: >189 18 Therapeutic target for the treatment of diabetes mellitus patients is <7% HBA1C, and in selective patients <6.0%. Please refer to [place] [employer] diabetic care guidelines for further information. 19 ADDITIONAL INFORMATION This test was developed and its performance characteristics determined by [facility] in a manner consistent with CLIA requirements. This test has not been cleared or approved by the U.S. Food and Drug Administration. Test Performed by: [facility] [address] [place] [address] Auto Slip Cover Installer: Kiko Barrera M.D. Ph.D.; CLIA# [id number] Procedures Date Code Description Status 06/20/2019 51497 Admin Of Inj Completed 06/18/2019 40459 Admin Of Inj Completed 05/26/2019 43390 Admin Of Inj Completed 05/22/2019 29226 Admin Of Inj Completed 04/25/2019 06987 Admin Of Inj Completed 04/08/2019 29031 Admin Of Inj Completed 02/28/2019 98554 Admin Of Inj Completed 02/07/2019 22075 Admin Of Inj Completed 02/06/2019 15378 Admin Of Inj Completed 01/30/2019 [id number] Mammogram Completed 09/05/2018 [id number] Mammogram Completed 09/04/2017 [id number] Mammogram Completed 09/01/2016 [id number] Mammogram Completed 08/30/2015 [id number] Mammogram Completed 07/19/2015 [id number] Bone Mineral Density Test Completed 08/26/2014 [id number] Mammogram Completed 08/25/2013 [id number] Mammogram Completed 09/12/2012 [id number] Mammogram Completed 10/12/2011 [id number] Bone Mineral Density Test Completed 09/12/2011 [id number] Mammogram Completed 09/08/2010 [id number] Mammogram Completed 10/05/2009 [id number] Colonoscopy Completed 08/26/2009 [id number] Mammogram Completed Medical Devices Description No Information Available Encounters Type Date Location Provider Dx Diagnosis Office Visit 05/21/2019 [facility] Adan Montero NP G43.909 Migraine , unsp, 9: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 Internal Katerina Varavinash, R11.2 Nausea with 3:40p Medicine - Ccmob N.P. vomiting, unspecified J06.9 Acute upper respiratory infection, unspecified Office Visit 02/28/2019 10:20a [facility] Internal Katerina Jimenezn, R11.2 Nausea with Medicine - N.P. vomiting, Ccmob unspecified J01.90 Acute sinusitis, unspecified G43.909 Migraine, unsp, not intractable, without status migrainosus Office Visit 01/06/2019 1:40p [facility] Internal Korina Meadows, A04.72 Enterocolitis d/t Medicine - MD Clostridium Ccmob difficile, not spcf as recur N64.52 Nipple discharge N63.20 Unspecified lump in the left breast, unspecified quadrant Assessments Date Code Description Provider 06/20/2019 Z00.00 Encounter for general adult medical Katerina Rubalcava, N.P. examination without abnormal findings 06/20/2019 G43.009 Migraine without aura, not intractable, Katerina Varn, N.P. without status migrainosus 06/20/2019 I10 Essential (primary) hypertension Katerina Varn, N.P. 06/20/2019 N95.9 Unspecified menopausal and perimenopausal Katerina Varn, N.P. disorder 06/20/2019 M46.1 Sacroiliitis, not elsewhere classified Katerina Varn, N.P. 06/20/2019 Z85.3 Personal history of malignant neoplasm of Katerina Jimenezn, N.P. breast 06/20/2019 Z12.11 Encounter for screening for malignant neoplasm Katerina Varn, N.P. of colon 06/20/2019 E78.00 Pure hypercholesterolemia, unspecified Katerina Varn, N.P. 06/18/2019 G43.009 Migraine without aura, not intractable, Nurse Visit A without status migrainosus 06/18/2019 G43.909 Migraine, unspecified, not intractable, Adan Montero, GIANNI without status migrainosus 05/26/2019 G43.909 Migraine, unspecified, not intractable, Nurse Visit A without status migrainosus 05/22/2019 G43.909 Migraine, unspecified, not intractable, Nurse Visit A without status migrainosus 05/21/2019 G43.909 Migraine, unspecified, not intractable, Adan Montero NP without status migrainosus 04/30/2019 R11.2 Nausea with vomiting, unspecified Katerina Varn, N.P. 04/30/2019 J06.9 Acute upper respiratory infection, unspecified Katerina Varn, N.P. 04/25/2019 G43.909 Migraine, unspecified, not intractable, Nurse [...] left breast, Korina Meadows MD unspecified quadrant Plan of Treatment Future Appointment(s):07/22/2019 9:00 am - Adan Montero NP at [facility]06/20/2019 - Katerina Varn, N.P.Z00.00 Encounter for general adult medical examination without abnormal findingsComments:For your routine health maintenance: I would encourage you to start a regular exercise program.G43.009 Migraine without aura, not intractable, without status migrainosusComments:For your migraine headaches:Continue with your current management. If you feel your symptoms are notwell controlled at any time, please contact the office.I10 Essential (primary) hypertensionComments:For your high blood pressure: Continue with your current medication. I would like you to monitor your blood pressure at home. If your readings at home are consistently higher than 140/90, please call the office.Follow up:HTN f/u [address] Verduzco95.9 Unspecified menopausal and perimenopausal disorderComments: For your osteoporosis: You should be getting between 1,000 - 1,200 mg of Calcium in daily. Be sure to take this in divided doses along with Vitamin D. Weight bearing exercise is important to stimulate your bones to maintain their density. I have ordered a Dexascan to see what your current bone densityis. I will contact you with your results.M46.1 Sacroiliitis, not elsewhere classifiedComments:You have an inflammation of the joint where your pelvic bone and sacrum meet. I advise you to applyice for 20 minutes 2 - 3 times throughout the day. You may take Ibuprofen 600 mg every 6 hours as needed for pain.Z85.3 Personal history of malignant neoplasm of breastComments:Please continue your care with your specialist.Z12.11 Encounter for screening for malignant neoplasm of colonNew Orders:Cologuard, Ordered: 06/20/19Comments:You are due for colon cancer screening. I have ordered a Cologuard for you. You will receive your kit in the mail. I will contact you with your results. If this should be abnormal you will need a colonoscopy.E78.00 Pure hypercholesterolemia, unspecifiedNew Labs:Lipid Profile (Trig/Chol/HDL), Ordered : 06/20/19Comments:Your cholesterol is way to high. I advise you to cut back on cholesterol rich foods. Functional Status Description No Information Available Mental Status Description No Information Available Referrals Refer to Reason for Referral Status Appt Date Rina Rodríguez M.D. Atypical migraine headaches, not helped with Created other preventatives [address] [place] [address], [place] [address] [phone]
[2019-06-22 18:09] VITALS: BP 183/73
[2019-06-22] MEDS ORDERED: Ketorolac *IM* INJ* 60 MG/2 ML VIAL IM ONE (18:26)
[2019-06-22] MEDS ORDERED: Ondansetron INJ* 2 MG/ML VIAL IM ONE (18:27)
--- NOTE | 2019-06-22 18:33 | ED ---
Headache - HPI Summary HPI Summary: 3-year-old white female presents with severe migraine flareup characterized by aching throbbing pain all over the calvarium associated with dizziness from sudden movements, head certain positional changes associated with dizziness not and nausea. Patient regularly takes Toradol IM prescribed by her PCP but her PCP is not available for injection today. - History Of Current Complaint Chief Complaint: UCHeadache Stated Complaint: HEADACHE Time Seen by Provider: 06/22/19 18:20 Hx Obtained From: Patient Hx Last Menstrual Period: Hysterectomy Onset/Duration: Sudden Onset Timing: Constant Character: Sharp, Dull, Throbbing, Migraine Location of Headache: Diffuse Aggravating Factor: Position Change, Bright Lights Allevating Factors: Medication - IM TORADOL - Allergies/Home Medications Allergies/Adverse Reactions: Allergies Allergy/AdvReac Type Severity Reaction Status Date / Time Adhesive Tape [Paper Tape] Allergy Unknown Unknown Verified 06/22/19 18:10 Reaction Details adhesive Allergy Unknown Verified 06/22/19 18:10 Reaction Details adhesive tape Allergy Unknown Verified 06/22/19 18:10 Reaction Details bee venom protein (honey bee) Allergy Unknown Verified 06/22/19 18:10 Reaction Details buprenorphine Allergy Rash Verified 06/22/19 18:10 chlorpheniramine Allergy Unknown Verified 06/22/19 18:10 [From Tussionex] Reaction Details Egg Derived Allergy Rash Verified 06/22/19 18:10 hydrocodone [From Tussionex] Allergy Unknown Verified 06/22/19 18:10 Reaction Details latex Allergy Blisters Verified 06/22/19 18:10 nalbuphine [From Nubain] Allergy Unknown Verified 06/22/19 18:10 Reaction Details nitrofurantoin Allergy GI Upset Verified 06/22/19 18:10 [From Macrobid] Sulfa (Sulfonamide Allergy Unknown Verified 06/22/19 18:10 Antibiotics) Reaction Details Tetanus Vaccines and Toxoid Allergy GI Upset Verified 06/22/19 18:10 Tetracyclines Allergy Unknown Verified 06/22/19 18:10 Reaction Details cefaclor [From Ceclor] AdvReac GI Upset Verified 06/22/19 18:10 cephalexin [From Keflex] AdvReac GI Upset Verified 06/22/19 18:10 ciprofloxacin [From Cipro] AdvReac GI Upset Verified 06/22/19 18:10 ondansetron AdvReac Nausea And Verified 06/22/19 18:10 Vomiting GANDOCIN Allergy Unknown Unknown Uncoded 06/22/19 18:10 Reaction Details Home Medications: Home Medications Carisoprodol TAB* [Soma TAB*] 350 mg PO TID 04/08/13 [History Confirmed ] SUMAtriptan TAB* [Imitrex TAB*] 50 mg PO Q2H PRN MDD 4 04/08/13 [History Confirmed 06/22/19] Zolpidem TAB* [Ambien*] 10 mg PO BEDTIME PRN 04/08/13 [History Confirmed ] Acetaminophen with Codeine [Tylenol with Codeine #3 Tablet] 2 tab PO Q6H PRN [History Confirmed 06/22/19] Aspirin/Acetaminophen/Caffeine [Excedrin Migraine Caplet] 1 each PO DAILY PRN [History Confirmed 06/22/19] Ketorolac *IM* INJ* [Toradol Inj*] 60 mg IM DAILY PRN 05/17/18 [History Confirmed 06/22/19] Baclofen TAB* [Lioresal TAB*] 5 mg PO TID PRN 06/01/18 [History Confirmed ] Ibuprofen TAB* [Motrin TAB* 800 MG] 800 mg PO TID 06/01/18 [History Confirmed ] Lidocaine PATCH 5%* [Lidoderm 5% Patch*] 1 patch TRANSDERM Q12H 06/01/18 [ History Confirmed 06/22/19] Tafluprost/Pf [Zioptan 0.0015% Eye Drops] 1 each BOTH EYES DAILY 07/01/18 [ History Confirmed 06/22/19] Lactobacillus Acidophilus [Probiotic Acidophilus] 1 each PO DAILY #30 tablet [Rx Confirmed 06/22/19] Lisinopril TAB* [Prinivil TAB 10 MG*] 10 mg PO DAILY #30 tab 11/30/18 [Rx Confirmed 06/22/19] Butalbit/Acetamin/Caff/Codeine [Verekj-Henw-Qearrehmwmt-Codein] 1 - 2 tab PO Q8H PRN MDD 6 06/01/19 [History Confirmed 06/22/19] Cetirizine* [ZyrTEC 10 MG TAB*] 10 mg PO DAILY PRN 06/01/19 [History Confirmed 06/22/19] Mv-Min/Iron/Folic/Calcium/Vitk [Multivitamin Women] 1 tab PO DAILY 06/01/19 [ History Confirmed 06/22/19] Netarsudil Mesylate [Rhopressa] 1 drop BOTH EYES DAILY 06/01/19 [History Confirmed 06/22/19] Albuterol HFA INHALER* [Ventolin HFA Inhaler*] 2 puff INH QID PRN 06/05/19 [ History Confirmed 06/22/19] PMH/Surg Hx/FS Hx/Imm Hx Previously Healthy: Yes Endocrine/Hematology History: Denies: Hx Anticoagulant Therapy, Hx Diabetes, Hx Thyroid Disease Cardiovascular History: Reports: Hx Hypertension Denies: Hx Congestive Heart Failure, Hx Deep Vein Thrombosis, Hx Myocardial Infarction, Hx Pacemaker/ICD Respiratory History: Reports: Other Respiratory Problems/Disorders - hx of pneumonia Denies: Hx Asthma, Hx Chronic Obstructive Pulmonary Disease (COPD), Hx Lung Cancer, Hx Pneumonia, Hx Pulmonary Embolism GI History: Denies: Hx Gall Bladder Disease, Hx Gastrointestinal Bleed, Hx Ulcer, Hx Urosepsis History: Denies: Hx Kidney Stones, Hx Renal Disease Musculoskeletal History: Reports: Other Musculoskeletal History - CHRONIC LOW BACK PAIN; INCREASED PAIN Rt KNEE Sensory History: Reports: Hx Contacts or Glasses Denies: Hx Legally Blind, Hx Deafness, Hx Hearing Aid Opthamlomology History: Reports: Hx Contacts or Glasses Denies: Hx Legally Blind Neurological History: Reports: Hx Headaches, Hx Migraine, Other Neuro Impairments/Disorders - HEADACHES Denies: Hx Dementia, Hx Seizures, Hx Transient Ischemic Attacks (TIA) Psychiatric History: Denies: Hx Anxiety, Hx Depression, Hx Panic Disorder, Hx Schizophrenia, Hx Bipolar Disorder - Cancer History Cancer Type, Location and Year: breast Ca Hx Chemotherapy: No Hx Radiation Therapy: Yes - BREAST - Surgical History Surgery Procedure, Year, and Place: APPENDECTOMY-EXPLORATORY; [facility] - ; 2004 BREAST-LUMPECTOMY Rt; STAPH INFECTION W/ BREAST;TONSILECTOMY ( CHILD) , PARTIAL hysterectomy Infectious Disease History: No Infectious Disease History: Denies: Hx Clostridium Difficile, Hx Hepatitis, Hx Human Immunodeficiency Virus (HIV), Hx of Known/Suspected MRSA, Hx Shingles, Hx Tuberculosis, Hx Known/ Suspected VRE, Hx Known/Suspected VRSA, History Other Infectious Disease, Traveled Outside the [place] in Last 30 Days - Family History Known Family History: Positive: Cardiac Disease, Hypertension - Social History Alcohol Use: Rare Hx Substance Use: No Substance Use Type: Reports: None Hx Tobacco Use: No Smoking Status (MU): Never Smoked Tobacco Have You Smoked in the Last Year: No Review of Systems Constitutional: Negative Positive: Photophobia. Negative: Blurred Vision, Diplopia ENT: Negative Cardiovascular: Negative Respiratory: Negative Gastrointestinal: Negative Genitourinary: Negative Musculoskeletal: Negative Skin: Negative Positive: Headache Psychological: Normal All Other Systems Reviewed And Are Negative: Yes Physical Exam - Summary Physical Exam Summary: Vital Signs Reviewed: Yes Gen: NAD Eye Exam: Normal Eyes: Positive: Conjunctiva Clear ENT: Normal ENT inspection Neck: Supple Respiratory: Lungs clear, Normal breath sounds. Negative: Crackles, Rhonchi, Stridor, Wheezing Cardiovascular Exam: Normal, RRR, S1, S2 Abdomen: NT/ND Musculoskeletal Exam: Normal Neurological Exam: Severe diffuse throbbing headache, no focal neuro deficits. Psychological Exam: Normal Skin Exam: Normal Vital Signs On Initial Exam: Initial Vitals Temp Pulse Resp BP Pulse Ox 37.3 C 68 16 183/73 100 06/22/19 18:05 06/22/19 18:05 06/22/19 18:05 06/22/19 18:05 06/22/19 18:05 Diagnostics - Vital Signs Vital Signs Temp Pulse Resp BP Pulse Ox 06/22/19 18:05 37.3 C 68 16 183/73 100 - Laboratory Lab Statement: Any lab studies that have been ordered have been reviewed, and results considered in the medical decision making process. Headache Course/Dx - Course Assessment/Plan: pt improved withe Toradol and Zofran IM and sx clincially improved - Diagnoses Provider Diagnoses: Migraine aura, persistent, intractable Discharge ED - Sign-Out/Discharge Documenting (check all that apply): Patient Departure All imaging exams completed and their final reports reviewed: No Studies - Discharge Plan Condition: Stable Disposition: HOME Patient Education Materials: Migraine Headache (ED) Referrals: Korina Meadows MD [Primary Care Provider] - Additional Instructions: please follow up with your PCP
== END 2019-06-22 19:12 | disposition home or self-care (01) ==
LOC: UCEAST 15:19
DX: G43.119 Migraine with aura, intractable, without status migrainosus (principal); I10 Essential (primary) hypertension; Z79.899 Other long term (current) drug therapy; Z85.3 Personal history of malignant neoplasm of breast; Z91.09 Other allergy status, other than to drugs and biological substances; Z91.030 Bee allergy status; Z91.040 Latex allergy status; Z88.2 Allergy status to sulfonamides; Z88.1 Allergy status to other antibiotic agents; Z88.5 Allergy status to narcotic agent; Z88.8 Allergy status to other drugs, medicaments and biological substances
CPT/HCPCS: 96372; 99212; G0463; J1885; J2405

== ENCOUNTER 2022-05-06 22:49 | Inpatient (IN) ==
[2022-05-07 00:31] LABS: ABS Eosinophils 0.1 10^3/ul (0-0.6); ABS Lymphocytes 0.8 10^3/ul (1.0-4.8); ABS Monocytes 0.3 10^3/ul (0-0.8); ABS Neutrophils 5.6 10^3/ul (1.5-7.7); Eosinophil % 1.5 %; Hematocrit 33 % (35-47); Hemoglobin 10.7 g/dL (12.0-16.0); Lymphocyte % 12.3 %; Mean Corpuscular HGB Conc 33 g/dL (31-36); Mean Corpuscular Hemoglobin 30 pg (27-31); Mean Corpuscular Volume 91 fL (80-97); Mean Platelet Volume 7.1 fL (7.4-10.4); Platelet Count 208 10^3/uL (150-450); Red Blood Count 3.58 10^6 /uL (3.70-4.87); Red Cell Distribution Width 13 % (10-15); White Blood Count 6.9 10^3/uL (3.5-10.8)
[2022-05-07 01:07] LABS: ALT 10 U/L (7-52); AST 10 U/L (13-39); Albumin/Globulin Ratio 1.9 (1-3); Alcohol, S < 13 mg/dL (<13); Alkaline Phosphatase 111 U/L (35-149); Anion Gap 6 mmol/L (2-11); Blood Urea Nitrogen 13 mg/dL (6-24); CO2 Carbon Dioxide 24 mmol/L (22-32); Calcium 9.6 mg/dL (8.6-10.3); Chloride 108 mmol/L (101-111); Creatinine, Serum 0.72 mg/dL (0.51-0.95); Globulin 2.1 g/dL (2-4); Glucose 117 mg/dL (70-100); Potassium 4.3 mmol/L (3.5-5.0); Sodium 138 mmol/L (135-145); Total Protein 6.1 g/dL (6.4-8.9)
[2022-05-07 01:22] LABS: TSH Ultra Thyroid Stim Horm 0.35 mcIU/mL (0.34-5.60)
[2022-05-07 02:04] LABS: Acetaminophen < 15 mcg/mL
[2022-05-07] MEDS: Enoxaparin 40 MG/0.4 ML SYR SUBCUT SCH (04:22)
[2022-05-07] MEDS ORDERED: Albuterol HFA INHALER 8 gm MDI INH PRN (05:15)
[2022-05-07 06:06] LABS: Hematocrit 34 % (35-47); Hemoglobin 11.3 g/dL (12.0-16.0); Mean Corpuscular HGB Conc 33 g/dL (31-36); Mean Corpuscular Hemoglobin 30 pg (27-31); Mean Corpuscular Volume 92 fL (80-97); Mean Platelet Volume 7.1 fL (7.4-10.4); Platelet Count 242 10^3/uL (150-450); Red Blood Count 3.72 10^6 /uL (3.70-4.87); Red Cell Distribution Width 13 % (10-15); White Blood Count 6.7 10^3/uL (3.5-10.8)
[2022-05-07 06:15] LABS: Albumin 4.2 g/dL (3.2-5.2); Calcium 10.2 mg/dL (8.6-10.3); Magnesium 1.9 mg/dL (1.9-2.7); Potassium 4.4 mmol/L (3.5-5.0); Total Bilirubin 0.3 mg/dL (0.2-1.0)
[2022-05-07 06:21] LABS: Albumin/Globulin Ratio 1.8 (1-3); Creatinine, Serum 0.77 mg/dL (0.51-0.95); Globulin 2.3 g/dL (2-4); Total Protein 6.5 g/dL (6.4-8.9)
[2022-05-07] MEDS: Mometasone/Formoter 200/5 MDI INH SCH ×2 (07:34→18:58)
[2022-05-07] MEDS ORDERED: Acetaminophen IV 1 GM/100ML 1,000 MG/100 ML BAG IV ONE (11:15)
[2022-05-07] MEDS ORDERED: Prochlorperazine 5 mg/ml 2 ml VIAL (10 mg) IV ONE (11:19)
[2022-05-07] MEDS: Lidocaine PATCH 5% PATCH TRANSDERM SCH (11:49)
[2022-05-07 16:23] LABS: Erythrocyte Sed Rate 23 mm/Hr (0-29)
[2022-05-07 17:47] LABS: Urine Appearance Clear; Urine Bilirubin Negative (Negative); Urine Blood Negative (Negative); Urine Color Straw; Urine Glucose Negative (Negative); Urine Ketones Negative (Negative); Urine Nitrite Negative (Negative); Urine Protein Negative (Negative); Urine Specific Gravity 1.009 (1.002-1.030); Urine Urobilinogen Negative (Negative)
[2022-05-07 18:03] LABS: Urine Benzodiazepine Screen None Detected (None Detect); Urine Cannabinoids Screen None Detected (None Detect); Urine Opiates Screen Presumptive Positive (None Detect)
[2022-05-07 18:56] LABS: C Reactive Protein 11.1 mg/L (<8.01)
[2022-05-08] MEDS: Enoxaparin 40 MG/0.4 ML SYR SUBCUT SCH (05:41)
[2022-05-08] MEDS: Mometasone/Formoter 200/5 MDI INH SCH ×2 (07:19→19:04)
[2022-05-08] MEDS: Butalb/Acetamin/Caff TAB 325-50-40MG PO SCH ×2 (08:46→20:10)
[2022-05-08] MEDS: Lidocaine PATCH 5% PATCH TRANSDERM SCH (10:08)
[2022-05-08] MEDS: Acetaminop/Codeine 300mg/30mg TAB PO PRN (20:12)
[2022-05-09] MEDS: Enoxaparin 40 MG/0.4 ML SYR SUBCUT SCH (05:41)
[2022-05-09] MEDS: Mometasone/Formoter 200/5 MDI INH SCH (07:28)
[2022-05-09] MEDS: Lidocaine PATCH 5% PATCH TRANSDERM SCH (08:07)
[2022-05-09] MEDS: Butalb/Acetamin/Caff TAB 325-50-40MG PO SCH (08:08)
[2022-05-09] MEDS ORDERED: Gadoteridol (CONTRAST) 279.3 MG/ML 10 ML IV ONE (10:01)
[2022-05-09] MEDS: Acetaminop/Codeine 300mg/30mg TAB PO PRN (10:29)
[2022-05-09 16:09] VITALS: BP 151/93
== END 2022-05-09 17:10 | disposition home or self-care (01) | DRG 93 ==
LOC: ED 22:49 → EDHOLD 22:49 → SUATTDRO 05-07 02:11 → MED 05-07 03:18
PROVIDERS: ADMIT Student in an Organized Health Care Education/Training Program; ATTEND Internal Medicine